=== PATIENT | female | born 1950 | race Caucasian/White ===

== ENCOUNTER 2018-08-30 14:31 | Outpatient (REF) | payer MEDICARE, MEDICAID, SELFPAY ==
[2018-08-30 13:07] LABS: HCT 40.3 % (36.0-46.0); HGB 13.5 g/dL (12.0-15.5); Mean Corp. HGB Concentration 33.5 g/dL (32.0-36.0); Mean Corpuscular Hemoglobin 30.5 pg (27.0-33.0); Mean Platelet Volume 11.6 fL (8.0-11.0); Platelet Count 221 x1000/uL (130-400); RBC 4.43 m/cumm (4.00-5.20); RBC Distribution Width 12.9 % (11.7-14.6); White Blood Cell Count 5.93 k/cumm (4.4-10.8)
[2018-08-30 13:29] LABS: BUN 24 mg/dL (7-18); Calcium 9.5 mg/dL (8.5-10.1); Chloride 106 mmol/L (98-107); Cholesterol 212 mg/dL (50-200); Glucose 90 mg/dL (70-100); HDL Cholesterol 65 mg/dL (40-60); LDL CHOLESTEROL 128 mg/dL (<100); Potassium 4.7 mmol/L (3.5-5.1); Sodium 143 mmol/L (136-145); Triglyceride 87 mg/dL (30-150)
== END 2018-08-30 14:51 ==
LOC: NCHCN 14:31
PROVIDERS: PCP Family Medicine; Visit Provider Family Medicine
DX: I10 Essential (primary) hypertension (principal); E78.5 Hyperlipidemia, unspecified
CPT/HCPCS: 80048; 80061; 83721; 85027

== ENCOUNTER 2019-03-02 01:08 | Outpatient (CLI) | payer MEDICARE, MEDICAID, SELFPAY ==
--- NOTE | 2019-03-02 16:02 | DI.MAMMO_ITS ---
EXAM: MAMMO SCREENING CLINICAL HISTORY: SCREENING Z12.31. TECHNIQUE: Mammograms were interpreted according to the usual protocol including computer analysis w [employer] CAD system, tomosynthesis and C-view imaging. COMPARISON: Comparison is made with prior exams. FINDINGS: Breasts are of moderate density with fairly symmetrical distribution of fibroglandular tissue. No do minant mass or clumped microcalcification identified in either breast. Current examination compared with previous examinations including October 2016 and there has been no gross interval change appearance in comparison the previous studies. IMPRESSION: No specific evidence of malignancy at this time. Routine screening examinations are suggested at year ly intervals due to the family history of breast carcinoma. Category 1. Breast density, category B. BI-RADS Cat 1 - Negative. Breast Density - Category B - Scattered areas of fibroglandular density.
--- NOTE | 2019-03-02 16:20 | DI.DEXA_ITS ---
EXAM: XR DEXA BONE DENSITY W/WO SHELBY INDICATION: ASYMPTOMATIC POST MENOPAUSAL STATUS Z78.0. COMPARISON: No exams were available for comparison TECHNIQUE: 2D digital imaging was performed. FINDINGS: DEXA scan was performed according to the usual protocol. Please see the accompanying data sheets. F indings for left hip scanning are T-score of 0.1 with left femoral neck T-score -1.8. Prior examinat ion of April 2009 showed left hip T-score 1.1. Lumbar spine scanning shows T-score -0.3. Prior examination of April 2009 showed lumbar T-score - 0.4. Left forearm shows T-score -1.1, prior examination 2008 showed left forearm T-score -0.7. IMPRESSION: Findings consistent with osteopenia according to the WHO criteria. Please note that the lateral verte bral scanogram shows no evidence of a vertebral compression fracture.
== END 2019-03-02 01:28 ==
PROVIDERS: PCP Family Medicine; Visit Provider Family Medicine
DX: Z12.31 Encounter for screening mammogram for malignant neoplasm of breast (principal); M85.88 Other specified disorders of bone density and structure, other site; Z78.0 Asymptomatic menopausal state
CPT/HCPCS: 77063; 77067; 77080

== ENCOUNTER 2020-03-29 12:43 | Outpatient (REF) | payer MEDICARE, MEDICAID, SELFPAY ==
[2020-03-29 19:22] LABS: Anion Gap 8.8 mmol/L (3-11); BUN 17 mg/dL (7-18); CO2 27.2 mmol/L (21.0-32.0); CREATININE 1.04 mg/dL (0.55-1.02); Calcium 9.3 mg/dL (8.5-10.1); Calculated LDL 128 mg/dL (<100); Chloride 104 mmol/L (98-107); Cholesterol 223 mg/dL (<200); Estimated GFR 52.09 (mL/min/1.73m2); Glucose 88 mg/dL (74-106); HDL Cholesterol 76 mg/dL (40-60); Potassium 4.5 mmol/L (3.5-5.1); Sodium 140 mmol/L (136-145); Triglyceride 99 mg/dL (<150)
== END 2020-03-29 13:03 ==
LOC: NCHCN 12:43
PROVIDERS: PCP Family Medicine; Visit Provider Family Medicine
DX: E78.5 Hyperlipidemia, unspecified (principal); I10 Essential (primary) hypertension
CPT/HCPCS: 80048; 80061

== ENCOUNTER 2020-08-27 02:36 | Outpatient (CLI) | payer MEDICARE, MEDICAID, SELFPAY ==
--- NOTE | 2020-08-27 09:23 | DI.RAD_ITS ---
EXAM: XR KNEE LT 3V AP,LAT,SCOTT CLINICAL HISTORY: LT KNEE JOINT PAIN,M25.562. TECHNIQUE: 2D digital imaging was performed. COMPARISON: CR LEFT KNEE 3 VIEW COMPLETE from 09/08/2014 CR RIGHT KNEE 3 VIEWS from 09/08/2014 FINDINGS: Again noted are significant degenerative changes in the knee joint, most prominent in the medial comp artment where there is significant narrowing and there is a degenerative subarticular cyst subjacent to the tibial spines again noted. There has also been some progression of degenerative disease in th e lateral compartment. The medial compartment, however, is [id number]. There are significant dege nerative changes also evident in the patellofemoral compartment. No obvious joint effusion. Vascular calcification is noted in the femoral and popliteal arteries. IMPRESSION: Significant osteoarthritic advanced changes in the medial patellofemoral compartment. DATA REPOSITORY: RADIATION DOSE DELIVERED:
== END 2020-08-27 02:56 ==
PROVIDERS: PCP Family Medicine; Visit Provider Family Medicine
DX: M25.562 Pain in left knee (principal); M17.12 Unilateral primary osteoarthritis, left knee
CPT/HCPCS: 73562

== ENCOUNTER 2020-08-27 12:45 | Outpatient (REF) | payer MEDICARE, MEDICAID, SELFPAY ==
--- NOTE | 2020-08-27 11:58 | SKI_PTH ---
PATIENT: Paula Bill LOC: [facility] U#:[id number] AGE/SX: 70/F ROOM: RE08/27/[address]: Blaise Cartwright DO : 1950 BED: DIS: 08/27/2020 SPEC #: [id number] RECD: 08/27/20 18:01 STATUS: KODI RERenae #: [id number] VANESSA: 08/27/20 11:[address]: Blaise Cartwright DEPT: Surgical Specimen RECD BY: Damaris Maurice ENTERED: 08/27/20 18:01 SP TYPE: SKI OTHR DR: Brook Leon Tissues: 1 - SKIN BIOPSY(SHAVE/PUNCH) Procedures: SKIN LEVEL 4 Comments: [id number]
== END 2020-08-27 12:46 | disposition home or self-care (01) ==
LOC: LBN 12:45
PROVIDERS: PCP Family Medicine; Visit Provider Otolaryngology Otolaryngology/Facial Plastic Surgery
DX: B07.8 Other viral warts (principal)
CPT/HCPCS: 88305

== ENCOUNTER → 2020-10-25 09:45 | Outpatient (BNVA) | payer MEDICARE, MEDICAID, SELFPAY | PROVIDERS: PCP Family Medicine; Referring Provider Family Medicine; Visit Provider Student in an Organized Health Care Education/Training Program | DX: M17.12 Unilateral primary osteoarthritis, left knee (principal) | CPT/HCPCS: 20610; 99213; J1040 ==

== ENCOUNTER 2021-01-14 15:37 | Outpatient (CLI) | payer MEDICARE, MEDICAID, SELFPAY ==
--- NOTE | 2021-01-14 14:00 | DI.RAD_ITS ---
Exam(s) XR STANDING ALIGNMENT EXAM: XR STANDING ALIGNMENT CLINICAL HISTORY: preop. TECHNIQUE: 2D digital imaging was performed. COMPARISON: CR XR KNEE LT 3V AP,LAT,SCOTT from 08/27/2020 CR XR KNEE LT 3V AP,LAT,SCOTT from 08/27/2020 FINDINGS: There is been further narrowing of the medial compartment of the left knee which is [id number] at t his time. More moderate narrowing of the medial compartment of the opposite-right knee is noted. La teral compartments of both knees exhibit normal height but exhibit chondrocalcinosis. Both hips appe ar unremarkable as do the ankles. Vascular calcification is noted in both lower extremities. No rad iographic evidence of osteomyelitis. IMPRESSION: DATA REPOSITORY: RADIATION DOSE DELIVERED:
--- NOTE | 2021-01-14 14:00 | DI.RAD_ITS ---
Exam(s) XR KNEE LT 1V EXAM: XR KNEE LT 1V CLINICAL HISTORY: preop. TECHNIQUE: 2D digital imaging was performed. COMPARISON: CR XR KNEE LT 3V AP,LAT,SCOTT from 08/27/2020 FINDINGS: Single lateral view reveals degenerative changes in the knee joint. Also a joint effusion. Vascular calcification femoral artery noted. IMPRESSION: DATA REPOSITORY: RADIATION DOSE DELIVERED:
== END 2021-01-14 15:38 | disposition home or self-care (01) ==
LOC: DIORS 15:38
PROVIDERS: PCP Family Medicine; Referring Provider Family Medicine; Visit Provider Student in an Organized Health Care Education/Training Program
DX: M17.12 Unilateral primary osteoarthritis, left knee (principal); M75.21 Bicipital tendinitis, right shoulder; Z98.890 Other specified postprocedural states
CPT/HCPCS: 99214; 73560; 77073

== ENCOUNTER 2021-02-22 08:16 | Outpatient (REF) | payer MEDICARE, SELFPAY, MEDICAID ==
[2021-02-22 13:39] LABS: Anion Gap 7.7 mmol/L (3-11); BUN 17 mg/dL (7-18); CO2 27.3 mmol/L (21.0-32.0); Calcium 8.8 mg/dL (8.5-10.1); Calculated LDL 130 mg/dL (<100); Chloride 108 mmol/L (98-107); Cholesterol 205 mg/dL (<200); Estimated GFR 54.35 (mL/min/1.73m2); Glucose 89 mg/dL (74-106); HDL Cholesterol 60 mg/dL (40-60); Potassium 4.3 mmol/L (3.5-5.1); Sodium 143 mmol/L (136-145); Triglyceride 75 mg/dL (<150)
== END 2021-02-22 08:17 | disposition home or self-care (01) ==
LOC: NCHCN 08:16
PROVIDERS: PCP Family Medicine; Visit Provider Family Medicine
DX: E78.5 Hyperlipidemia, unspecified (principal); I10 Essential (primary) hypertension
CPT/HCPCS: 80048; 80061

== ENCOUNTER → 2021-03-04 12:53 | Outpatient (BNVA) | payer MEDICARE, MEDICAID, SELFPAY | PROVIDERS: PCP Family Medicine; Referring Provider Family Medicine | DX: Z01.818 Encounter for other preprocedural examination (principal); M17.12 Unilateral primary osteoarthritis, left knee ==

== ENCOUNTER 2021-03-11 01:31 | Outpatient (CLI) | payer MEDICARE, MEDICAID, SELFPAY ==
[2021-03-11 09:55] LABS: HCT 38.5 % (36.0-46.0); HGB 12.5 g/dL (11.2-15.7); MCH 29.8 pg (27.0-33.0); MCHC 32.5 % (32.0-36.0); MCV 91.9 fL (80-95); MPV 10.2 fL (8.0-11.0); Platelet Count 205 10^3/uL (130-400); RBC 4.19 10^6/uL (3.93-5.22); RDW 12.7 % (11.7-14.6); RDW-SD 42.4 fL
== END 2021-03-11 01:32 | disposition home or self-care (01) ==
LOC: LBO 01:31
PROVIDERS: PCP Family Medicine; Visit Provider Student in an Organized Health Care Education/Training Program
DX: M25.562 Pain in left knee (principal); M17.12 Unilateral primary osteoarthritis, left knee; Z01.818 Encounter for other preprocedural examination; Z01.812 Encounter for preprocedural laboratory examination
CPT/HCPCS: 36415; 85027; 87635

== ENCOUNTER 2021-03-11 02:06 | Outpatient (CLI) | payer MEDICARE, MEDICAID, SELFPAY ==
[2021-03-11 12:36] LABS: Source Nasal/Nares
[2021-03-11 18:06] LABS: COVID-19 PCR Negative (Negative)
== END 2021-03-11 02:07 | disposition home or self-care (01) ==
LOC: LBO 02:06
PROVIDERS: PCP Family Medicine; Visit Provider Student in an Organized Health Care Education/Training Program
DX: Z20.822 Contact with and (suspected) exposure to COVID-19 (principal); Z01.818 Encounter for other preprocedural examination
CPT/HCPCS: 87635

== ENCOUNTER 2021-03-12 10:27 | Day surgery (SDC) | payer MEDICARE, MEDICAID, SELFPAY ==
[2021-03-12] VITALS (9 sets, daily range): BP systolic 128–204; BP diastolic 93–119; PULSE 71–78; RESP 16–22; TEMP 36.3–36.6; O2SAT 94–100; BMI 26.4
--- NOTE | 2021-03-12 10:04 | DSE_ITS ---
Documented by User: Linda Hartman 03/12/21 11:08 DS: Diagnosis Discharge Diagnosis (1) Unilateral primary osteoarthritis, left knee: Status: Acute Discharge Plan Disposition Patient Disposition: HOME Condition: Good Discharge Details Reason For Visit: Left knee DJD Attending Provider: Angel Joshua Primary Care Provider: Brook Leon Home Meds and New Rx's Prescriptions: New acetaminophen 500 mg tablet 500 mg PO Q6H PRN (Reason: pain) Qty: 60 RF: 2 aspirin 81 mg tablet,delayed release (DR/EC) 81 mg PO BID 30 Days Qty: 60 RF: 0 celecoxib [Celebrex] 200 mg capsule 200 mg PO BID Qty: 30 RF: 0 docusate sodium [Colace] 100 mg capsule 100 mg PO BID Qty: 30 RF: 0 gabapentin 300 mg capsule 300 mg PO QHS Qty: 14 RF: 0 oxycodone 5 mg tablet 5 mg PO Q4H PRN (Reason: severe post-operative pain) Qty: 18 RF: 0 pantoprazole 40 mg tablet,delayed release (DR/EC) 40 mg PO DAILY 30 Days Qty: 30 RF: 0 Continued betamethasone dipropionate 15 GM ointment 15 g Topical PRN PRNRF: 0 pravastatin 20 MG tablet 20 mg PO DAILY RF: 0 lisinopril 2.5 MG tablet 2.5 mg PO DAILY RF: 0 Discontinued aspirin [Aspir-81] 81 MG tablet,delayed release (DR/EC) 81 mg PO DAILY RF: 0 Discharge Instructions Additional Instructions: Total Knee Discharge Instructions Activity: The most important activity is to walk. You should try to take short walks a few times a day. It is important that when resting you work on keeping the knee straight. Avoid putting a pillow behind the knee as this will encourage flexion. Work on range of motion exercises as provided by Physical Therapy. If you have the [employer] bike coming, this will be your primary tool for exercise after the knee replacement. You should use it and follow the directions for the knee. Utilize the other exercises sparingly based on your symptoms. - Start outpatient physical therapy within 2 weeks. - You should wear the SCARLET hose on both legs for 2 weeks. You may remove these at night. You may also use any compression sock in place of the SCARLET hose. - Utilize [employer] to review exercises, see videos on exercises and obtain basic information pertaining to your surgery and your recovery. Dressing: Remove the Dov wrap by 2 days after your surgery and put on the SCARLET stocking given to you from the hospital. Keep the surgical dressing (underneath the DOV wrap) in place for at least one week. After the first week it may be removed and replaced with light gauze and tape or nothing. The wound and dressing may get wet after 3 days but avoid soaking the dressing or otherwise it will need to be changed. Many people prefer covering the dressing with cling wrap (saran wrap) to minimize it from getting soaked. If it gets wet, just pat dry. If it starts to peel off then it will need to be changed. Medications: - You should take Tylenol and anti-inflammatory Celebrex as your primary pain control medications. If the Celebrex is too expensive or not covered, please call the office for another alternative (Advil/Ibuprofen or Naproxen/Aleve) - You have been prescribed a stronger pain medication Oxycodone for breakthrough pain, take as needed as prescribed. - You have also been prescribed a stomach acid reduction agent Pantoprozole to help reduce stomach acid and reflux. - You have been prescribed Gabapentin to take at night for restlessness and nerve pain. - You will be taking Aspirin 81mg twice a day for DVT prevention unless instructed otherwise. - If you have constipation you should take Colace (which has been prescribed)or Miralax (which you may purchase [id number]). It takes most people 3-4 days to have a bowel movement. Follow-up: 2 weeks If you have any acute concerns or questions, please do not hesitate to contact [facility] office at [phone]. You may contact Dr. Joshua with any questions after hours through the hospital at [phone] or on his cell phone at [phone]. Stand Alone Forms: Anesthesia Discharge Inst., Anes.Nerve Block Instructions Referrals: Angel Joshua MD [ [facility] STAFF PHYSICIAN] - Equipment/Supplies: Walker Activity:: Elevate Remove Dressings/Wound Care:: Do Not Remove Shower/Bathe:: Cover Diet:: As Tolerated Discharge Orders Discharge Orders: Discharge Order (Routine); Ordered 03/12/21 Ordered By: Angel Joshua DS: Data Vitals/I&O Vitals and I&O: Intake & Output 03/11/21 03/11/21 03/12/21 11:59 23:59 11:59 Weight 67.585 kg PFSH Medical History Bilateral carotid bruits Facial twitching Family hx of colon cancer Hair loss Hand eczema Hx of adenomatous colonic polyps Hyperlipidemia Hypertension Menopause Objective pulsatile tinnitus Pain, joint, shoulder, right Varicose veins of left lower extremity Surgical History Colonoscopy - [facility] (08/10/17) Social History Smoking/Tobacco Use Status: Never Smoking risk assessment performed?: Yes Alcohol Intake: current Alcohol Intake frequency: 3 or more drinks per day Drug use: Never Substance use type: does not use Do you feel safe at home: Yes Do you feel safe in your relationship?: Yes Documented by User: Angel Joshua MD 03/12/21 17:54 Date of service: 03/12/21 Time of Service: 17:46 Discharge Plan Disposition Patient Disposition: HOME Condition: Good Discharge Details Reason For Visit: Left knee DJD Attending Provider: Angel Joshua Primary Care Provider: Brook Leon Home Meds and New Rx's Prescriptions: New acetaminophen 500 mg tablet 500 mg PO Q6H PRN (Reason: pain) Qty: 60 RF: 2 aspirin 81 mg tablet,delayed release (DR/EC) 81 mg PO BID 30 Days Qty: 60 RF: 0 celecoxib [Celebrex] 200 mg capsule 200 mg PO BID Qty: 30 RF: 0 docusate sodium [Colace] 100 mg capsule 100 mg PO BID Qty: 30 RF: 0 gabapentin 300 mg capsule 300 mg PO QHS Qty: 14 RF: 0 oxycodone 5 mg tablet 5 mg PO Q4H PRN (Reason: severe post-operative pain) Qty: 18 RF: 0 pantoprazole 40 mg tablet,delayed release (DR/EC) 40 mg PO DAILY 30 Days Qty: 30 RF: 0 Continued betamethasone dipropionate 15 GM ointment 15 g Topical PRN PRNRF: 0 pravastatin 20 MG tablet 20 mg PO DAILY RF: 0 lisinopril 2.5 MG tablet 2.5 mg PO DAILY RF: 0 Discontinued aspirin [Aspir-81] 81 MG tablet,delayed release (DR/EC) 81 mg PO DAILY RF: 0 Discharge Instructions Additional Instructions: Total Knee Discharge Instructions Activity: The most important activity is to walk. You should try to take short walks a few times a day. It is important that when resting you work on keeping the knee straight. Avoid putting a pillow behind the knee as this will encourage flexion. Work on range of motion exercises as provided by Physical Therapy. If you have the [employer] bike coming, this will be your primary tool for exercise after the knee replacement. You should use it and follow the directions for the knee. Utilize the other exercises sparingly based on your symptoms. - Start outpatient physical therapy within 2 weeks. - You should wear the SCARLET hose on both legs for 2 weeks. You may remove these at night. You may also use any compression sock in place of the SCARLET hose. - Utilize [employer] to review exercises, see videos on exercises and obtain basic information pertaining to your surgery and your recovery. Dressing: Remove the Dov wrap by 2 days after your surgery and put on the SCARLET stocking given to you from the hospital. Keep the surgical dressing (underneath the DOV wrap) in place for at least one week. After the first week it may be removed and replaced with light gauze and tape or nothing. The wound and dressing may get wet after 3 days but avoid soaking the dressing or otherwise it will need to be changed. Many people prefer covering the dressing with cling wrap (saran wrap) to minimize it from getting soaked. If it gets wet, just pat dry. If it starts to peel off then it will need to be changed. Medications: - You should take Tylenol and anti-inflammatory Celebrex as your primary pain control medications. If the Celebrex is too expensive or not covered, please call the office for another alternative (Advil/Ibuprofen or Naproxen/Aleve) - You have been prescribed a stronger pain medication Oxycodone for breakthrough pain, take as needed as prescribed. - You have also been prescribed a stomach acid reduction agent Pantoprozole to help reduce stomach acid and reflux. - You have been prescribed Gabapentin to take at night for restlessness and nerve pain. - You will be taking Aspirin 81mg twice a day for DVT prevention unless instructed otherwise. - If you have constipation you should take Colace (which has been prescribed)or Miralax (which you may purchase [id number]). It takes most people 3-4 days to have a bowel movement. Follow-up: 2 weeks If you have any acute concerns or questions, please do not hesitate to contact the office at [phone]. You may contact Dr. Joshua with any questions after hours through the hospital at [phone] or on his cell phone at [phone]. Stand Alone Forms: Anesthesia Discharge Inst., Anes.Nerve Block Instructions Referrals: Angel Joshua MD [ [facility] STAFF PHYSICIAN] - Equipment/Supplies: Walker Activity:: Elevate Remove Dressings/Wound Care:: Do Not Remove Shower/Bathe:: Cover Diet:: As Tolerated Discharge Orders Discharge Orders: Discharge Order (Routine); Ordered 03/12/21 Ordered By: Angel Joshua DS: Summary Time Spent with Patient providing and/or coordinating discharge services: Less than 30 minutes Status at Discharge Functional status at discharge: uses cane/walker Overall status at discharge: patient is progressing back to baseline Mental Status: mental status grossly normal Speech and Movement: speech and movement normal Mood: congruent mood Affect: normal affect Exam Psych Mental Status: mental status grossly normal Speech and Movement: speech and movement normal Mood: congruent mood Affect: normal affect [facility] Medical History Bilateral carotid bruits Facial twitching Family hx of colon cancer Hair loss Hand eczema Hx of adenomatous colonic polyps Hyperlipidemia Hypertension Menopause Objective pulsatile tinnitus Pain, joint, shoulder, right Varicose veins of left lower extremity Surgical History Colonoscopy - [facility] (08/10/17) Social History Smoking/Tobacco Use Status: Never Smoking risk assessment performed?: Yes Alcohol Intake: current Alcohol Intake frequency: 3 or more drinks per day Drug use: Never Substance use type: does not use Do you feel safe at home: Yes Do you feel safe in your relationship?: Yes
[2021-03-12] MEDS: Acetaminophen 500 MG TAB 1000 MG PO (11:00)
[2021-03-12] MEDS: Gabapentin 300 MG CAP PO (11:01)
[2021-03-12] MEDS: Celecoxib 200 MG CAP 400 MG PO (11:01)
[2021-03-12 11:06] LABS: Anion Gap 5.2 mmol/L (3-11); BUN 15 mg/dL (7-18); CO2 29.8 mmol/L (21.0-32.0); Calcium 9.7 mg/dL (8.5-10.1); Chloride 107 mmol/L (98-107); Estimated GFR 54.35 (mL/min/1.73m2); Glucose 99 mg/dL (74-106); Potassium 4.8 mmol/L (3.5-5.1); Sodium 142 mmol/L (136-145)
[2021-03-12] MEDS: Lactated Ringers 1,000 ML 80 ML IV (11:30)
--- NOTE | 2021-03-12 11:30 | ANES.PREOP_ITS ---
General Info Date of Service Date Performed: 03/12/21 Height: 5 ft 3 in Weight: 67.585 kg Body Mass Index (BMI): 26.4 Surgical Procedure: Operation Date: 03/12/21 13:40 Proposed Procedures Side Surgeon p Knee Total Arthroplasty Left Angel Joshua MD Meds Allergies and Home Medications Allergies Allergy/AdvReac Type Severity Reaction Status Date / Time No Known Allergies Allergy Unverified 03/12/21 11:31 Home Medication Medication Instructions Recorded lisinopril 2.5 mg PO DAILY 02/22/14 pravastatin 20 mg PO DAILY 02/22/14 betamethasone dipropionate 15 g TOPICAL PRN PRN script NS 07/20/17 acetaminophen 500 mg PO Q6H PRN #60 tab 03/12/21 aspirin 81 mg PO BID 30 Days #60 tab 03/12/21 celecoxib [Celebrex] 200 mg PO BID #30 cap 03/12/21 docusate sodium [Colace] 100 mg PO BID #30 cap 03/12/21 gabapentin 300 mg PO QHS #14 cap 03/12/21 oxycodone 5 mg PO Q4H PRN #18 tab 03/12/21 pantoprazole 40 mg PO DAILY 30 Days #30 tab 03/12/21 Current Visit Medications: Current Medications Generic Name Dose Route Start Last Admin Trade Name Freq PRN Reason Stop Dose Admin Acetaminophen 1,000 mg 03/12/21 06:00 03/12/21 11:00 Acetaminophen 500 Mg Tab PO 03/12/21 23:59 1,000 mg PREOP TEDDY Administration Acetaminophen 1,000 mg 03/12/21 14:00 Acetaminophen 500 Mg Tab PO TID TEDDY Aspirin 81 mg 03/12/21 20:00 Aspirin E.C. 81 Mg Tabec PO BID TEDDY Celecoxib 400 mg 03/12/21 06:00 03/12/21 11:01 Celecoxib 200 Mg Cap PO 03/12/21 23:59 400 mg PREOP TEDDY Administration Celecoxib 200 mg 03/12/21 20:00 Celecoxib 200 Mg Cap PO BID TEDDY Docusate Sodium 100 mg 03/12/21 10:01 Docusate Sodium 100 Mg Cap PO BID PRN PRN Constipation Gabapentin 300 mg 03/12/21 06:00 03/12/21 11:01 Gabapentin 300 Mg Cap PO 03/12/21 23:59 300 mg PREOP TEDDY Administration Gabapentin 300 mg 03/12/21 22:00 Gabapentin 300 Mg Cap PO HS TEDDY Hydromorphone HCl 0.5 mg 03/12/21 10:01 Hydromorphone 2 Mg/Ml Vial IVP Q2H PRN PRN Tranexamic Acid 1,000 mg/ 60 mls @ 360 mls/hr 03/12/21 06:00 Sodium Chloride IVPB 03/12/21 23:59 PREOP TEDDY Tranexamic Acid 1,000 mg/ 60 mls @ 360 mls/hr 03/12/21 06:00 Sodium Chloride IVPB 03/12/21 23:59 DIRECTED TEDDY Ringer's Solution 1,000 mls @ 80 mls/hr 03/12/21 06:00 IV 04/10/21 23:59 INFUSION TEDDY Cefazolin Sodium/Dextrose 2 gm in 50 mls @ 100 mls/hr 03/12/21 06:00 Ancef Duplex IVPB 03/12/21 16:00 PREOP TEDDY Cefazolin Sodium/Dextrose 1 gm in 50 mls @ 100 mls/hr 03/12/21 14:00 Ancef Duplex IVPB 03/13/21 06:29 Q8H TEDDY IV Miscellaneous Supplies 1 each 03/12/21 06:00 Iv Access IV 04/10/21 23:59 DIRECTED TEDDY Ondansetron HCl 4 mg 03/12/21 10:01 Ondansetron 4 Mg/2 Ml Vial IVP Q6H PRN PRN Nausea Oxycodone HCl 0 mg 03/12/21 10:01 Oxycodone 5 Mg Tab PO Q3H PRN PRN Pain Pantoprazole Sodium 40 mg 03/13/21 08:00 Pantoprazole 40 Mg Tabcr PO DAILY@0730 TEDDY Polyethylene Glycol 17 gm 03/12/21 10:01 Polyethylene Glycol 3350 17 Gm Packet PO BID PRN PRN Constipation Sodium Chloride 0 ml 03/12/21 06:00 Normal Saline Flush 10 Ml Syr IV 04/10/21 23:59 PRN PRN Sodium Chloride 0 ml 03/12/21 06:00 Normal Saline 10 Ml Vial IJ 04/10/21 23:59 DIRECTED PRN Sterile Water 0 ml 03/12/21 06:00 Water,Injection,Sterile 10 Ml Vial IJ 04/10/21 23:59 DIRECTED PRN PFSH Active Problems Active Problems: Problem Status Onset Code Tendinitis of long head of biceps brachii of right shoulder M75.21 Unilateral primary osteoarthritis, left knee 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, soft tissue, and skin D49.2 Medical History Medical History Bilateral carotid bruits Facial twitching Family hx of colon cancer Hair loss Hand eczema Hx of adenomatous colonic polyps Hyperlipidemia Hypertension Menopause Objective pulsatile tinnitus Pain, joint, shoulder, right Varicose veins of left lower extremity Surgical History Surgical History Colonoscopy - [facility] (08/10/17) Tobacco Smoking/Tobacco Use Status: Never Alcohol Alcohol Intake: current Alcohol intake frequency: 3 or more drinks per day Substance Use Substance use: Never Substance use type: does not use Vital Signs and Lab Results Lab Results Result Diagrams: 03/12/21 10:44 Blood Type / Crossmatch: No Data to Display Complete Blood Count: White Blood Count 6.50 10^3/uL (4.4-10.8) 03/11/21 09:40 03/11/21 Red Blood Count 4.19 10^6/uL (3.93-5.22) 03/11/21 09:40 03/11/21 Hemoglobin 12.5 g/dL (11.2-15.7) 03/11/21 09:40 03/11/21 Hematocrit 38.5 % (36.0-46.0) 03/11/21 09:40 03/11/21 Platelet Count 205 10^3/uL (130-400) 03/11/21 09:40 03/11/21 Complete Metabolic Panel: 2 Sodium Level 142 mmol/L (136-145) 03/12/21 10:44 03/12/21 Potassium Level 4.8 mmol/L (3.5-5.1) 03/12/21 10:44 03/12/21 Chloride Level 107 mmol/L (98-107) 03/12/21 10:44 03/12/21 Carbon Dioxide Level 29.8 mmol/L (21.0-32.0) 03/12/21 10:44 03/12/21 Blood Urea Nitrogen 15 mg/dL (7-18) 03/12/21 10:44 03/12/21 Creatinine 1.0 mg/dL (0.55-1.02) 03/12/21 10:44 03/12/21 Estimated GFR/1.73 m2 54.35 (mL/min/1.73m2) 03/12/21 10:44 03/12/21 Calcium Level 9.7 mg/dL (8.5-10.1) 03/12/21 10:44 03/12/21 Glucose Level 99 mg/dL (74-106) 03/12/21 10:44 03/12/21 Liver Function Panel: No Data to Display Coagulation Panel: No Data to Display Cardiac Panel: No Data to Display Arterial Blood Gas: No Data to Display Venous Blood Gas: No Data to Display Pancreas Panel: No Data to Display Thyroid Panel: No Data to Display Infectious Disease: Coronavirus (COVID-19)(PCR) Negative (Negative) 03/11/21 09:55 03/11/21 Coronavirus 2019 Source Nasal/Nares 03/11/21 09:55 03/11/21 Blood Cultures: No Data to Display Toxicology Panel: No Data to Display Imaging and Studies Imaging and Studies Carotid Artery Summary:: 10/2015: CONCLUSION: No evidence of a he modynamically significant carotid stenosis. Anesthesia Assessment and Plan Anesthesia History Personal History: No History of Anesthesia Complications Family History: No Family History of Anesthesia Complications Exercise Tolerance Exercise Tolerance: Metabolic Equivalents>4 Pertinent Negatives Pertinent Negatives: No Symptoms of GERD, No Major Cardiovascular Symptoms or Complaints, No Major Pulmonary Symptoms or Complaints and No History of CVA/TIA Cardiac & Pulmonary Exam Cardiac Exam: Normal S1/S2 Heart Sounds Pulmonary Exam: Clear Bilateral Breath Sounds Airway Exam Known Difficult Airway: No Mallampati Class: 3 Mouth Opening: Normal (> 3cm) Thyromental Distance: Greater than 3 cm Neck Range of Motion: Full ROM Neck Circumference: Normal Teeth Condition: Normal Dentition and Removable Dentures/Plates Upper ASA Classification ASA Score: ASA 2 Emergency Case?: No NPO Status NPO Status: NPO Clears >2 hours, Solids >8 hours Anesthesia Plan Resuscitation Status: Full Code Anesthesia Technique: Spinal Anesthesia Airway Planned: Natural Airway Pain Management: Surgeon and patient request nerve block Monitors Used: Standard Monitors
[2021-03-12] MEDS: ceFAZolin 2 GM/50 ML BAG IVPB (14:42)
[2021-03-12] MEDS: Bupivacaine 0.25% Pres-Free 30 ML VIAL (14:55)
[2021-03-12] MEDS: Ketorolac 30 MG/ML VIAL (14:56)
[2021-03-12] MEDS: Normal Saline 20 ML VIAL (14:57)
--- NOTE | 2021-03-12 16:40 | W.ANESNERVE ---
Nerve Block Single Injection Procedure Date and Time Date Performed: 03/12/21 Procedure Start: 14:15 Location Where Procedure Performed Procedure Location: PACU Reason Performed: Postoperative Analgesia Requesting Provider: Agnel Joshua Timeout Performed Timeout Performed: Yes Monitoring Used ECG, Blood Pressure and SpO2 Sterility Sterility: Hand Hygiene, Surgical Cap, Surgical Mask, Sterile Gloves and Chlorhexidine Sedation Given During Procedure Sedation Given (Indicate Dose Given): Precedex IV Dose:: 8 mcg Patient Mental Status Patient Mental Status: Awake Nerve Block 1st Nerve Block: Laterality: Left Block Type: Adductor Canal Needle / Catheter Used: 100mm SonoPlex II Local Anesthetic Bolus (Indicate Dose Given): Lidocaine used for local infiltration of skin, Injected in 3-5ml increments after negative blood aspiration and Bupivacaine 0.25% Dose:: 15 ml Additives (Indicate Dose Given): None Ultrasound: Sterile probe cover and gel used Ultrasound Image Saved?: Yes Nerve Stimulator: Not Used Paresthesia: None Procedure Tolerated: No Complications and Patient tolerated well Procedure Outcome: Successful Performed By: Rikki Christianson Supervised By: Star Hernandez
[2021-03-12] MEDS: oxyCODONE 5 MG TAB PO (16:43)
--- NOTE | 2021-03-12 17:05 | IN_ITS ---
Date of service: 03/12/21 Time of Service: 17:05 PT Notes Visit Reasons: Left knee DJD Physical Therapy Day Surgery Initial Evaluation Date: 03/12/2021 ROSE MARY Márquez Referring Doctor: PT Orders: PT CONSULT: Status post Ortho surgery Precautions: WBAT on left LE with AD. Patient Profile/Admitting Diagnosis: Marline is a 71-year-old female with degenerative joint disease of the left knee and is status post left total knee today 0. PMHX: Medical History Bilateral carotid bruits Facial twitching Family hx of colon cancer Hair loss Hand eczema Hx of adenomatous colonic polyps Hyperlipidemia Hypertension Menopause Objective pulsatile tinnitus Pain, joint, shoulder, right Varicose veins of left lower extremity Surgical History Colonoscopy - MAC (08/10/17) Social History/Home Situation: Lives with in a private home with 2 steps to enter with a rail on the left going up. There is another flight of steps to the second floor of the house where the bedroom is but patient states that she will be staying on the main floor of house when she goes home. She will have the support of her son and her daughter as she recovers. Equipment Owned/DME: [facility] Subjective: Agreeable to PT consult. Reported mild lightheadedness that seemed to have abated with ambulation activity. Reports 3/10 pain on the left knee at rest and with movement. Objective: General Observation: TOLU wraps on left LE. Cryocuff on left knee. TEDS on the R leg. Mental Status: Alert and oriented x4 Pain: 3/10 pain at rest and with movement ROM: Right Lower Extremity: Hip flexion WFL. Hip abduction WFL. Knee flexion WFL. Ankle dorsiflexion WFL. Ankle plantarflexion WFL. Left Lower Extremity: Hip flexion WFL. Hip abduction WFL. Knee flexion about 5 degrees to 100 degrees. Knee extension about -5 degrees ankle dorsiflexion WFL. Ankle plantarflexion WFL. Strength: Right Lower Extremity: Hip flexors 5/5. Hip abductors 5/5. Knee flexors 5/5. Knee extensors 5/5. Ankle dorsiflexors 5/5. Ankle plantarflexors 5/5. Left Lower Extremity:Hip flexors 5/5. Hip abductors 5/5. Knee flexors 3-/5. Knee extensors 3-/5. Ankle dorsiflexors 5/5. Ankle plantarflexors 5/5. Sensation: Denies numbness and tingling in bilateral lower extremities. Intact as to pain and light touch in bilateral lower extremities. Bed Mobility/Transfers: Supine to sit standby assist Sit to stand contact-guard assist Stand to sit standby assist Bed to chair contact-guard assist Gait: Instructed patient in level surface ambulation of 75 feet using front wheeled walker with step to gait pattern requiring contact-guard assist and wheelchair follow. Reported mild lightheadedness. Systolic blood pressure in the 170s over low 90s after ambulation activity. Denies headache, chest pain, and increased pain in the left knee. Stairs: Up and down 6 x 4 inch steps and 4 x 6 inch step to holding onto bilateral rails with step to gait pattern requiring contact-guard assist of PT. Will have assistance of family members on 1 side when negotiating steps at home. Balance: Static Sitting: Normal Dynamic Sitting: Normal Static Standing: Fair Dynamic Standing: Fair Special Tests: Mobility Limitations Standardized Measure [facility] AM-PAC 6 clicks Basic Mobility Inpatient Short Form: Raw Score: 20 CMS Score: 36% deficit Informed Consent/Education: Patient instructed in purpose of PT consult. Packet containing TKA exercise protocol has been given to patient. Education and training on initial set of exercises that can be done at home have been completed with patient. Assessment: Patient requires the use of a front wheel walker to reduce fall risk and maximize independence at home. Patient presents with clinical signs and symptoms consistent with current/admitting diagnoses that have resulted to mobility limitations, gait instability, generalized weakness, and impairment of motor control as demonstrated by the following impairment level findings: 1. Decreased strength to left knee major muscle groups 2. Impaired standing balance 3. Limitation of joint range of motion in left knee Impairments are contributing to the following functional limitations: 1. Inability to safely ambulate without assistive device 2. Increase completion time for mobility ADL performance 3. Increased fall risk Patient is assessed as a [id number] moderate complexity based on the following: History: 71-year-old female with impairment level findings, functional limitations, and past medical history as indicated above Examination: Demonstrable impairment in strength, balance, and mobility level with underlying impairments and functional limitations as documented above Presentation: Evolving Decision Makin moderate complexity Goals: N/A. PT evaluation and 1-2 treatment sessions only for functional mobility training using recommended AD and for HEP instruction. Plan of Care/Treatment Plan: N/A. PT evaluation and 1-2 treatment session only for functional mobility training using recommended AD and for HEP instruction. DISCHARGE RECOMMENDATIONS: Home when medically cleared by orthopedic surgeon. Outpatient PT services in order to facilitate safe return to community ambulation without assistive device. TREATMENT CODE/TIME: 15153 x 20 minutes, 70818 x 15 minutes beginning at 17:05 PM. Thank you for the opportunity to participate in the care of this patient. Thank you for the opportunity to participate in the care of this patient. Hillary Neri PT, DPT, CLT [facility] [place], [place]
[2021-03-12] MEDS: LISINOPRIL 2.5 MG TAB PO (17:32)
--- NOTE | 2021-03-12 17:51 | W.ANESPOSTOP ---
Postoperative Evaluation Date, Time and Location Date Performed: 03/12/21 Time Performed: 17:51 Patient Location: Day Surgery Unit Vital Signs Most Recent Imported Vital Signs: Most Recent Vital Signs Temp Pulse Resp BP Pulse Ox 36.5 C 71 16 178/95 H 95 03/12/21 17:37 03/12/21 17:37 03/12/21 17:37 03/12/21 17:37 03/12/21 17:37 Pain Score Most Recent Pain Score: Most Recent Pain Score Pain Level 3 03/12/21 17:37 Assessment Mental Status: Awake (Alert & Oriented to Patient Baseline) Airway and Respiratory Function: Patent airway with normal (patient baseline) respiratory exam Cardiovascular Function: Hemodynamically Stable (will monitor blood pressure at home) Hydration Status: Adequately Hydrated Nausea & Vomiting: No Nausea or Vomiting Pain: Pt. Denies Any Pain Peripheral Nerve Block: Regional nerve block not resolved at time of post operative discharge
--- NOTE | 2021-03-12 20:24 | W.PM.OP ---
Date of service: 03/12/21 Time of Service: 16:17 Operative Note Operative Note DATE OF PROCEDURE: 03/12/21 PRE-OP DIAGNOSIS: Left Knee Osteoarthritis POST-OP DIAGNOSIS: same PROCEDURE: Left Total Knee Replacement SURGEON: Angel Joshua PRODUCTION CONTROL PLANNER: Linda Hartman ANESTHESIA TYPE: Spinal Refer to Anesthesia Record ESTIMATED BLOOD LOSS: 150 PATHOLOGY: none sent TOURNIQUET TIME: 33 COMPLICATIONS: None Patient was transported to: PACU Patient's condition: stable Implants: 1. Depuy Attune Cruciate Retaining Femoral Component, Size 5 Narrow 2. Depuy Attune Rotating Platform Tibial Component, Size 4 3. Depuy Attune 5x5 CR,RP Poly 4. Depuy Attune Patellar Component, Size 35 Indications: I have seen Marline in clinic for symptoms of knee arthritis, confirmed with radiographic findings. Marline has exhausted nonoperative methods and was having significant limitations in daily function and desired better function and less pain. I discussed the technical details of a knee replacement. I explained the risks of the procedure to include, but not limited to, bleeding, infection, pain, stiffness, fracture, damage to nerves and vessels, damage to muscles and tendons, loosening, need for repeat procedure, blood clot and cardiopulmonary demise. Despite these risks, Marline elected to proceed. Findings: There was significant signs of arthritis throughout the knee, focused most in the medial compartment. Procedure Description: Marline was greeted in the preoperative holding area where the correct side was identified and marked. The consent was reviewed with the patient and signed. The history and physical was updated. All questions were answered. Preoperative mediacations were administered: Acetaminophen 1000mg, Celebrex 400mg, and Gabapentin 300mg. An adductor canal block was then administered by the anesthesia team in the PACU. Marline was taken back to the operating room. A spinal anesthestic was then administered. The patient was placed into the supine position on the operating room table. A nonsterile tourniquet was placed high onto the leg but only used for cementing. Posts were placed for positioning during the procedure. All bony prominences were well padded. Prophylactic antibiotics in the form of Cefazolin were administered. 1g of Tranxemic Acid was given intravenously within 30 minutes of incision. The left leg was then prepped with Chloraprep and draped in a standard fashion with impervious stockinette and extremity drape. A second prep with Chloraprep was performed prior to placing Ioband. A timeout to confirm correct identity, side and site, procedure, allergies, anesthesia, and medical concerns was performed. With the knee in some flexion, a midline incision was made overlying the knee. Full thickness skin flaps were raised once the extensor mechanism was encountered. These were raised medially and laterally. Any bleeding was controlled with electrocautery. Once the extensor mechanism was fully exposed, a medial parapatellar arthrotomy was performed in a flexed position. All bleeding from the arthrotomy and the geniculate arteries was coagulated. A medial subperiosteal peel was performed with electrocautery to the midcoronal plane. The fat pad was removed while keeping the patellar tendon protected. The anterior distal femur synovium was removed for later visualization. The ACL and PCL were resected and the anterior horn of the lateral meniscus was transected. The knee was then flexed with the patella everted. Using a step drill, and based on preoperative templating, the femoral canal was entered. This was done with a step drill without any difficulty. The intramedullary distal femoral cut guide was inserted, set to a 4 degree valgus cut and 9mm cut thickness. The distal femoral cut guide was then held in position and pinned. With the soft tissues protected, the distal cut was performed. This was passed over a few times to ensure a planar cut. I then turned attention to the tibia. The extramedullary guide was placed onto the leg. The distal aspect was slid medial to adjust for position of center of ankle and stay in line with shaft of the tibia. Approximately 5 degrees of posterior slope was kept in the proximal cutting guide. The center of the guide was aligned with the PCL. The stylus was used to assess cut thickness. The medial side, most involved side, was set for a 4mm cut from the lowest aspect, posteromedial tibia. This was then held in position and pinned into place with 2 additional pins and a cross pin for stability. The medial and lateral collateral ligaments were protected and the cut was performed. With this completed, it was assessed and noted to be of appropriate dimensions. The guide was removed. A spacer block was inserted and the knee was brought into extension. The 5mm spacer block provided full extension, without hyperextension and with stability of both the medial and lateral collateral ligaments was assessed. The pins from the femur and the tibia were then removed. The distal femur was then sized. The anterior stylus was placed onto the lateral ridge of the anterior femur. This indicated a size 5 Narrow femur. The external rotation of the guide was adjusted to 3 degrees to match the epicondylar axis, perpendicular to Melba?s line. The 4-in-1 cutting guide was the placed. The posterior medial femur cut was evaluated and appeared of good thickness. The spacer block was inserted underneath the cutting guide and stability was confirmed in 90 degrees of flexion. An elva wing was used to confirm appropriate position of the anterior cut to avoid notching. This cutting guide was ensured to be flush on the cut surface and then pinned into place with headed pins. While protecting the soft tissues, quad tendon, and collateral ligaments, the anterior and posterior cuts were performed with a saw. The central two pins were removed and the posterior and anterior chamfers were cut next. The notch-cutting guide was placed. This was pinned to lateralize the femoral component as much as possible while keeping it flush on the cut surface. This was then pinned into position. A reciprocating saw was used to make the small notch cut. A trial CR femoral component was then inserted, impacted down to the cut surfaces, and the lug holes were drilled. A provisional trial tibial component was placed and the knee was brought through range of motion. There was noted to be excellent extension and flexion. There was no significant instability. The patella was tracking without thumbs. The tibial cut surface was fully exposed. The medial and lateral menisci were removed. The tibia was then sized as a 4. The tibia had been previously marked during trialing to correspond to the center of the tibial component to help with rotation. The trial was aligned to this gissel, approximately rotated to the medial 1/3rd of the tibial tubercle. The trial was pinned into place. The tibia was prepared with a reamer and a keel punch. The knee was then brought into extension and the patella was measured as 22mm. Using the patellar clamp and cut guide, this was resected to a flat surface with at least 13mm of thickness remaining. The size 35 patella fit the best. This was oriented and then clamped into position. The lugs were drilled. The trial components were removed. The final components, except for the polyethylene were opened on the back table. The periosteal and capsular tissues, especially posteriorly, around the knee were then systematically injected with a periarticular cocktail consisting of 50cc 0.25% Marcaine, 30mg Ketorolac, 20cc of Exparal and 50cc of injectable saline. The tourniquet was then inflated to 275mmHg. The knee was thoroughly irrigated with a pulse lavage and dried. On the back table, with the implants opened, the cement was mixed. 2 batches of antibiotic laden medium viscosity cement were prepared with vacuum assistance. After the cement was ready it was placed on to the back side of the tibial component. A small amount was placed onto the posterior flange of the femur. Cement was manual pressurized and impregnated into the cut surface of the tibia. The tibial component was then inserted into the cut surface and impacted into position. Excess cement was removed and the component was reimpacted. Again, excess cement was removed and our attention was then turned to the femur. The femoral cut surface was once again dried and cement was manually impacted into the cut surface. The femoral component was lined with the lug holes and impacted. Excess cement was removed. It was ensured to be down against the cut surface. The trial polyethylene was then inserted and the leg was brought out into full extension for the duration of the cement curing process, approximately 18min. Cement was lastly manually impacted into the cut surface of the patella and the patellar button was clamped into position and held. During this process attention was turned to the gutters of the knee and for all interfaces for any excess cement. While the cement was hardening, the knee was irrigated with Irrisept chlorhexadine solution. It was allowed to sit in the knee for 3 minutes. After the cement had finally cured, approximately 18min, the clamp was removed from the patella and the knee was taken through range of motion. A size 5mm polyethylene component provided the best range of motion and stability with less than 2mm gapping with medial and lateral stress and full extension without significant hyperextension. The patella was tracking with a no-thumbs technique. The trial poly was removed and once again the knee was checked for any loose, excess, or errant cement. The poly component was then inserted into position after cleaning and drying the tibial tray. The capsule was then reapproximated with a No. 1 Vicryl at multiple locations. The capsule was finally closed with a No. 2 Stratafix, barbed suture. The tourniquet was then released and the arthrotomy appeared watertight without significant bleeding. The second dosing of 1g TXA was started. Deep tissues were then reapproximated with 0 Vicryl and 2-0 Vicryl. The skin was closed with a running 3-0 Monocryl in a subcuticular fashion. This was reinforced with skin glue. A Mepilex silver dressing was applied along with a [id number] TOLU wrap. A CryoCuff was applied. Marline was transferred to the hospital bed without difficulty an suffering no apparent complication. Marline has a good prognosis. Physical therapy will start today and without restrictions, weight-bearing as tolerated. Aspirin 81mg BID will be used for DVT prophylaxis.
== END 2021-03-12 18:11 | disposition home or self-care (01) ==
LOC: SUR 10:28
PROVIDERS: PCP Family Medicine; Visit Provider Student in an Organized Health Care Education/Training Program
PROC: (CPT 27447; principal; 2021-03-12 13:30)
DX: M17.12 Unilateral primary osteoarthritis, left knee (principal); I10 Essential (primary) hypertension
CPT/HCPCS: 27447; C1776; 80048; 97162; 97530; J0690; J1100; J1885; J2001; J2370; J2405; J2704

== ENCOUNTER 2021-03-25 10:34 | Outpatient (CLI) | payer MEDICARE, MEDICAID, SELFPAY ==
--- NOTE | 2021-03-25 09:45 | DI.RAD_ITS ---
Exam(s) XR STANDING ALIGNMENT EXAM: XR STANDING ALIGNMENT CLINICAL HISTORY: 1ST POST OP L TKA. TECHNIQUE: 2D digital imaging was performed. COMPARISON: CR XR STANDING ALIGNMENT from 01/14/2021 FINDINGS: There has been interval placement of a left knee prosthesis. Components appear to be in satisfactory position. No fractures or loosening evident. There is moderate narrowing of the medial compartment of the opposite-right knee and marginal osteophytes. Both hips appear unremarkable. Calcification is noted in the femoral and popliteal arteries. Some n arrowing of the medial aspect of the left ankle joint is noted. Possible fracture of the tip of the lateral malleolus left-side versus artifact. IMPRESSION: DATA REPOSITORY: RADIATION DOSE DELIVERED:
--- NOTE | 2021-03-25 09:45 | DI.RAD_ITS ---
Exam(s) XR KNEE LT 1V EXAM: XR KNEE LT 1V CLINICAL HISTORY: 1ST POST OP L TKA. TECHNIQUE: 2D digital imaging was performed. COMPARISON: CR XR KNEE LT 1V from 01/14/2021 FINDINGS: On this lateral view there is satisfactory position and alignment of the components of the recently p laced prosthesis. No fracture or loosening evident on this single view. IMPRESSION: DATA REPOSITORY: RADIATION DOSE DELIVERED:
== END 2021-03-25 10:35 | disposition home or self-care (01) ==
LOC: DIORS 10:34
PROVIDERS: PCP Family Medicine; Referring Provider Family Medicine; Visit Provider Physician Assistant
DX: Z96.652 Presence of left artificial knee joint (principal); Z47.1 Aftercare following joint replacement surgery
CPT/HCPCS: 73560; 77073

== ENCOUNTER 2021-04-05 02:40 | Outpatient (CLI) | payer MEDICARE, MEDICAID, SELFPAY ==
--- NOTE | 2021-04-05 12:00 | DI.MAMMO_ITS ---
Exam(s) MAMMO SCREENING EXAM: MAMMO SCREENING CLINICAL HISTORY: SCREENING MAMMO FOR BREAST CANCER Z12.31 TECHNIQUE: Mammograms were interpreted according to the usual protocol including computer analysis w [employer] CAD system, tomosynthesis and C-view imaging. COMPARISON: 2011 through 2018 FINDINGS: The breasts are composed of scattered fibroglandular densities, Breast Density category B. No suspicious masses or suspicious microcalcifications are seen. Vascular calcifications. No skin thickening or abnormal axillary lymph nodes are seen. There has been no significant change from prior exams. IMPRESSION: BI-RADS Category 1, Negative mammogram Yearly screening mammography is recommended. Breast Density - Category B, scattered fibroglandular densities. A negative radiographic report should not delay biopsy if a dominant or clinically suspicious mass is present. Up to ten percent of cancers are not identified on mammography. A negative report may reinforce clinical impression. Adenosis and dense breasts may obscure an underlying neoplasm. False positive reports average 6 to 10%. Patient will receive a letter notifying them of these results.
== END 2021-04-05 03:00 ==
PROVIDERS: PCP Family Medicine; Visit Provider Family Medicine
DX: Z12.31 Encounter for screening mammogram for malignant neoplasm of breast (principal)
CPT/HCPCS: 77063; 77067

== ENCOUNTER → 2021-04-22 10:26 | Outpatient (BNVA) | payer MEDICARE, MEDICAID, SELFPAY | PROVIDERS: PCP Family Medicine; Referring Provider Family Medicine; Visit Provider Student in an Organized Health Care Education/Training Program | DX: Z47.1 Aftercare following joint replacement surgery (principal); Z96.652 Presence of left artificial knee joint ==

== ENCOUNTER → 2021-05-13 09:39 | Outpatient (BNVA) | payer MEDICARE, MEDICAID, SELFPAY | PROVIDERS: PCP Family Medicine; Referring Provider Family Medicine; Visit Provider Student in an Organized Health Care Education/Training Program | DX: R69 Illness, unspecified (principal) ==

== ENCOUNTER → 2021-06-18 09:39 | Outpatient (BNVA) | payer MEDICARE, MEDICAID, SELFPAY | PROVIDERS: PCP Family Medicine; Referring Provider Family Medicine; Visit Provider Student in an Organized Health Care Education/Training Program | DX: Z47.1 Aftercare following joint replacement surgery (principal); Z96.652 Presence of left artificial knee joint | CPT/HCPCS: 99213 ==

== ENCOUNTER → 2021-09-13 09:24 | Outpatient (BNVA) | payer MEDICARE, MEDICAID, SELFPAY | PROVIDERS: PCP Family Medicine; Referring Provider Family Medicine; Visit Provider Student in an Organized Health Care Education/Training Program | DX: T84.82XA Fibrosis due to internal orthopedic prosthetic devices, implants and grafts, initial encounter (principal); Z96.652 Presence of left artificial knee joint | CPT/HCPCS: 99213 ==

== ENCOUNTER 2022-02-04 02:00 | Outpatient (CLI) | payer MEDICARE, MEDICAID, SELFPAY ==
[2022-02-04 12:36] LABS: Source Nasal/Nares
[2022-02-04 16:14] LABS: COVID-19 PCR Negative (Negative)
== END 2022-02-04 02:01 | disposition home or self-care (01) ==
LOC: LBO 02:00
PROVIDERS: PCP Family Medicine; Visit Provider Student in an Organized Health Care Education/Training Program
DX: Z20.822 Contact with and (suspected) exposure to COVID-19 (principal); Z01.818 Encounter for other preprocedural examination
CPT/HCPCS: 87635

== ENCOUNTER 2022-02-05 11:30 | Day surgery (SDC) | payer MEDICARE, MEDICAID, SELFPAY ==
[2022-02-05] VITALS (7 sets, daily range): BP systolic 64–168; BP diastolic 40–92; PULSE 73–79; RESP 15–22; TEMP 36.1–36.7; O2SAT 94–99; BMI 23.8
--- NOTE | 2022-02-05 08:22 | PDOC.DSDIS_ITS ---
Discharge Plan Disposition Patient Disposition: HOME Condition: Good Discharge Details Reason For Visit: Arthrofibrosis of left TKA Attending Provider: Angel Joshua Primary Care Provider: Brook Leon Home Meds and New Rx's Prescriptions: New acetaminophen 500 mg tablet 500 mg PO Q6H PRN (Reason: pain) Qty: 60 2RF ibuprofen 600 mg tablet 600 mg PO TID PRN (Reason: pain) Qty: 60 0RF Continued betamethasone dipropionate 15 GM ointment 15 g Topical PRN PRN pravastatin 20 MG tablet 20 mg PO HS lisinopril 2.5 MG tablet 2.5 mg PO HS Discontinued acetaminophen 500 mg tablet 500 mg PO Q6H PRN (Reason: pain) Qty: 60 2RF Discharge Instructions Additional Instructions: Knee Manipulation Discharge Instructions Activity: You should begin moving as soon as possible. You may work on flexion but also equally maintain extension. You may bear weight as tolerated, using crutches only for support/comfort. You should apply ice to help with swelling and elevate when possible (especially in the first few days). Dressings: The knee dressing may come down after 48 hours. You may shower and get the wound wet at that time. You should keep the wounds covered with a bandaid until follow-up. Medications: - Rarely does this require any stronger pain medications. - Recommend to take up to 1000mg of Acetaminophen (Tylenol) and 600mg of Ibuprofen (Advil) every 8 hours as needed. These larger strength tablets were called in but you also may use [id number]. Follow-up: 7-10 days Referrals: Angel Joshua MD [ [facility] STAFF PHYSICIAN] - Equipment/Supplies: Partial Weight Bearing Crutches Remove Dressings/Wound Care:: 48 hours Shower/Bathe:: 48 hours Diet:: As Tolerated Discharge Orders Discharge Orders: Discharge Order (Routine); Ordered 02/05/22 Ordered By: Linda Hartman
--- NOTE | 2022-02-05 12:08 | W.PREOPHP ---
Assessment and Plan Assessment and plan (1) Arthrofibrosis of total knee replacement: Status: Acute Assessment and plan: Left knee arthroscopy with synovectomy and HAFSA. Details of surgery were discussed with patient as well as risks and pertinent anatomy. All questions were answered. History of Present Illness History of Present Illness Chief Complaint: Left knee stiffness Narrative: Marline is a 72-year-old female who comes in today for a left knee arthroscopy with synovectomy about 11 months status post a left TKA. She has not been happy with her progress in her range of motion of her left total knee replacement and has not noticed any improvement over the last many months. After a discussion with Dr. Joshua about options, she elects to move forward with a left knee arthroscopy with manipulation under anesthesia and is anxious to proceed. Review of Systems Constitutional Constitutional: Denies fever(s) ENT Ears, Nose, Mouth, and Throat: Denies dizziness and Denies sore throat Cardiovascular Cardiovascular: Denies chest pain, Denies palpitations and Denies dyspnea Respiratory Respiratory: Denies cough and Denies dyspnea Gastrointestinal Gastrointestinal: Denies abdominal pain, Denies melena, Denies hematochezia, Denies diarrhea, Denies nausea and Denies vomiting Genitourinary Genitourinary: Denies hematuria and Denies dysuria Neurologic Neurologic: Denies dizziness Endocrine Endocrine: Denies palpitations PFSH All Active Problems (Updated 02/05/22 @ 12:13 by ROSE MARY Vega) Neoplasm of unspecified behavior of bone, soft tissue, and skin (Acute) Tendinitis of long head of biceps brachii of right shoulder (Acute) History of total left knee replacement (Acute 03/12/21) DOS 03/12/21 Arthrofibrosis of total knee replacement (Acute) LEFT S/P arthroscopy and HAFSA: 02/05/2022 Medical History Bilateral carotid bruits Facial twitching Family hx of colon cancer Hair loss Hand eczema Hx of adenomatous colonic polyps Hyperlipidemia Hypertension Menopause Objective pulsatile tinnitus Pain, joint, shoulder, right Varicose veins of left lower extremity Surgical History (Updated 02/05/22 @ 12:13 by ROSE MARY Vega) Colonoscopy - MAC (08/10/17) Hx of cataract extraction Social History Smoking/Tobacco Use Status: Never Smoking risk assessment performed?: Yes Alcohol Intake: current Alcohol Intake frequency: 3 or more drinks per day Alcohol type: hard liquor Drug use: Never Substance use type: does not use Do you feel safe at home: Yes Do you feel safe in your relationship?: Yes Meds Allergies and Home Medications Allergies Allergy/AdvReac Type Severity Reaction Status Date / Time No Known Allergies Allergy Verified 02/05/22 11:58 Home Medications Medication Instructions Recorded Confirmed Type lisinopril 2.5 mg tablet 2.5 mg PO HS 02/22/14 02/05/22 History pravastatin 20 mg tablet 20 mg PO HS 02/22/14 02/05/22 History betamethasone dipropionate 0.05 % 15 g topical PRN PRN 07/20/17 02/05/22 History topical ointment acetaminophen 500 mg tablet 500 mg PO Q6H PRN pain #60 tabs 02/05/22 Rx ibuprofen 600 mg tablet 600 mg PO TID PRN pain #60 tabs 02/05/22 Rx Exam Const General: cooperative and no acute distress Orientation: alert and awake [facility] Head: normocephalic and atraumatic Eyes Conjunctivae: conjunctivae normal Sclera: sclerae normal Resp Effort & Inspection: normal respiratory effort Auscultation: clear to auscultation bilaterally and no wheezes Cardio Rate: regular rate Rhythm: regular rhythm Heart Sounds: S1 normal, S2 normal and no murmurs Results Last Vital Signs Temp 97.2 F L 02/05/22 11:34 Pulse 78 02/05/22 11:34 Resp 18 02/05/22 11:34 BP 168/92 H 02/05/22 11:34 Pulse Ox 99 02/05/22 11:34
[2022-02-05] MEDS: Lactated Ringers 1,000 ML 80 ML IV (12:16)
--- NOTE | 2022-02-05 12:21 | ANES.PREOP_ITS ---
General Info Date of Service Date Performed: 02/05/22 Height: 5 ft 3 in Weight: 61 kg Body Mass Index (BMI): 23.8 Surgical Procedure: Operation Date: 02/05/22 11:55 Proposed Procedure Side Surgeon p Knee Arthroscopy Synovectomy w/Manipulation Left Angel Joshua MD Meds Allergies and Home Medications Allergies Allergy/AdvReac Type Severity Reaction Status Date / Time No Known Allergies Allergy Verified 02/05/22 11:58 Home Medication Medication Instructions Recorded lisinopril 2.5 mg tablet 2.5 mg PO HS 02/22/14 pravastatin 20 mg tablet 20 mg PO HS 02/22/14 betamethasone dipropionate 0.05 % 15 g topical PRN PRN 07/20/17 topical ointment acetaminophen 500 mg tablet 500 mg PO Q6H PRN pain #60 tabs 02/05/22 ibuprofen 600 mg tablet 600 mg PO TID PRN pain #60 tabs 02/05/22 Current Visit Medications: Current Medications Generic Name Dose Route Start Last Admin Trade Name Juan Mq PRN Reason Stop Dose Admin Acetaminophen 650 mg 02/05/22 08:19 Acetaminophen 325 Mg Tab PO Q4H PRN PRN Hydrocodone Bitart/Acetaminophen 0 tab 02/05/22 08:19 Hydrocodone 5/Acetaminophen 325 Tab PO Q3H PRN PRN Pain Ringer's Solution 1,000 mls @ 80 mls/hr 02/05/22 06:00 02/05/22 12:16 IV 03/06/22 23:59 80 mls/hr INFUSION TEDDY Administration Cefazolin Sodium/Dextrose 2 gm in 50 mls @ 100 mls/hr 02/05/22 06:00 Ancef Duplex IVPB 03/06/22 23:59 PREOP TEDDY IV Miscellaneous Supplies 1 each 02/05/22 06:00 Iv Access IV 03/06/22 23:59 DIRECTED TEDDY Sodium Chloride 0 ml 02/05/22 06:00 Normal Saline Flush 10 Ml Syr IV 03/06/22 23:59 PRN PRN Sodium Chloride 0 ml 02/05/22 06:00 Normal Saline 10 Ml Vial IJ 03/06/22 23:59 DIRECTED PRN Sterile Water 0 ml 02/05/22 06:00 Water,Injection,Sterile 10 Ml Vial IJ 03/06/22 23:59 DIRECTED PRN PFSH Active Problems Active Problems: Problem Status Onset Code Neoplasm of unspecified behavior of bone, soft tissue, and skin D49.2 Tendinitis of long head of biceps brachii of right shoulder M75.21 History of total left knee replacement 03/12/21 Z96.652 Arthrofibrosis of total knee replacement T84.82XA Medical History Medical History Bilateral carotid bruits Facial twitching Family hx of colon cancer Hair loss Hand eczema Hx of adenomatous colonic polyps Hyperlipidemia Hypertension Menopause Objective pulsatile tinnitus Pain, joint, shoulder, right Varicose veins of left lower extremity Surgical History Surgical History (Updated 02/05/22 @ 12:13 by ROSE MARY Vega) Colonoscopy - MAC (08/10/17) Hx of cataract extraction Tobacco Smoking/Tobacco Use Status: Never Alcohol Alcohol Intake: current Alcohol intake frequency: 3 or more drinks per day Alcohol type: hard liquor Substance Use Substance use: Never Substance use type: does not use Vital Signs and Lab Results Vital Signs Most Recent Vital Signs in EMR: Most Recent Vital Signs Temp Pulse Resp BP Pulse Ox 36.2 C L 78 18 168/92 H 99 02/05/22 11:34 02/05/22 11:34 02/05/22 11:34 02/05/22 11:34 02/05/22 11:34 Lab Results Blood Type / Crossmatch: No Data to Display Complete Blood Count: No Data to Display Complete Metabolic Panel: No Data to Display Liver Function Panel: No Data to Display Coagulation Panel: No Data to Display Cardiac Panel: No Data to Display Arterial Blood Gas: No Data to Display Venous Blood Gas: No Data to Display Pancreas Panel: No Data to Display Thyroid Panel: No Data to Display Infectious Disease: Coronavirus (COVID-19)(PCR) Negative (Negative) 02/04/22 08:51 Coronavirus 2019 Source Nasal/Nares 02/04/22 08:51 Blood Cultures: No Data to Display Toxicology Panel: No Data to Display Imaging and Studies Imaging and Studies Study information below may be from another EMR and interpreted by another provider. Please see original notes in EMR for more complete details. Carotid Artery Summary:: 10/2015: CONCLUSION: No evidence of a hemod ynamically significant carotid stenosis. Anesthesia Assessment and Plan Anesthesia History Personal History: No History of Anesthesia Complications Family History: No Family History of Anesthesia Complications Exercise Tolerance Exercise Tolerance: Metabolic Equivalents>4 Pertinent Negatives Pertinent Negatives: No Symptoms of GERD, No Major Cardiovascular Symptoms or Complaints, No Major Pulmonary Symptoms or Complaints and No History of CVA/TIA Cardiac & Pulmonary Exam Cardiac Exam: Normal S1/S2 Heart Sounds Pulmonary Exam: Clear Bilateral Breath Sounds Implantable Cardiac Device Does patient have a Pacemaker or an ICD?: No Airway Exam Known Difficult Airway: No Mallampati Class: 3 Mouth Opening: Normal (> 3cm) Thyromental Distance: Greater than 3 cm Neck Range of Motion: Full ROM Neck Circumference: Normal Teeth Condition: Normal Dentition and Removable Dentures/Plates Upper ASA Classification ASA Score: ASA 2 Emergency Case?: No NPO Status NPO Status: NPO Clears >2 hours, Solids >8 hours Anesthesia Plan Resuscitation Status: Full Code Anesthesia Technique: Spinal Anesthesia Airway Planned: Natural Airway Monitors Used: Standard Monitors
[2022-02-05] MEDS: ceFAZolin 2 GM/50 ML BAG IVPB (13:28)
[2022-02-05] MEDS: Bupivacaine 0.5% Pres-Free 30 ML VIAL (14:12)
--- NOTE | 2022-02-05 15:08 | W.ANESPOSTOP ---
Postoperative Evaluation Date, Time and Location Date Performed: 02/05/22 Time Performed: 15:08 Patient Location: Day Surgery Unit Vital Signs Most Recent Imported Vital Signs: Most Recent Vital Signs Temp Pulse Resp BP Pulse Ox 36.6 C 76 22 111/54 L 94 02/05/22 14:41 02/05/22 14:41 02/05/22 14:41 02/05/22 14:41 02/05/22 14:41 Pain Score Most Recent Pain Score: Most Recent Pain Score Pain Level 0 02/05/22 14:41 Assessment Mental Status: Awake (Alert & Oriented to Patient Baseline) Airway and Respiratory Function: Patent airway with normal (patient baseline) respiratory exam Cardiovascular Function: Hemodynamically Stable Hydration Status: Adequately Hydrated Nausea & Vomiting: No Nausea or Vomiting Pain: Pt. Denies Any Pain Peripheral Nerve Block: Patient did not receive a nerve block Postoperative Comments:: Spinal wearing off appropriately.
--- NOTE | 2022-02-06 06:24 | ROE_ITS ---
Date of service: 02/05/22 Time of Service: 14:15 Operative Note Operative Note DATE/TIME OF PROCEDURE: Procedure Start: 02/05/22 13:45 Procedure End: 02/05/22 14:14 PRE-OP DIAGNOSIS: Left Knee Arthrofibrosis s/p Replacement POST-OP DIAGNOSIS: same PROCEDURE: Left Knee Arthroscopic 3 compartment synovectomy SURGEON: Angel Joshua Refer to Anesthesia Record ESTIMATED BLOOD LOSS: 0 PATHOLOGY: none sent TOURNIQUET TIME: 0 COMPLICATIONS: None Patient was transported to: PACU Patient's condition: stable Implants/Explants: Implants/Explants Operation Date: 02/05/22 11:55 <No data on this case meets the specified criteria> Indications: Marline is a 72 year old female who is s/p knee replacement. Despite diligent work with physical therapy there has been continued stiffness. To assist with mobility, I offered a manipulation under anesthesia. I discussed the risks of the procedure to include bleeding, pain, recurrent stiffness, fracture. Despite these risks, she elects to proceed. Findings: Preoperative flexion = 95 Postoperative flexion = 125 Preoperative extension = 5 Postoperative extension = 5 Procedure Description: Marline was greeted in the preoperative holding area where the correct side was identified and marked. The consent was reviewed with the patient and signed. The history and physical was updated. All questions were answered. She was taken back to the operating room. The patient was placed into the supine position on the operating room table. All bony prominences were well padded. Prophylactic antibiotics in the form of Cefazolin were administered. Preoperative range of motion was assessed as 5 - 95. The left leg was then prepped with Chloraprep and draped in a standard fashion with stockinette and extremity drape. A timeout to confirm correct identity, side and site, procedure, allergies, anesthesia, and medical concerns was performed. The leg was placed into a pneumatic leg macdonald, SPIDER2. A standard lateral portal was made at the lateral border of the patella tendon in line with the inferior pole of the patella, soft spot. The skin and deep tissue was incised sharply and the blunt trochar was inserted atraumatically. At this point had visualization of the femoral component. A superolateral portal was then established with spinal needle localization just superior and lateral to the patella. A knife was taken down through the skin and soft tissue to enter the knee joint. Starting in the superior compartment above the femoral component and anterior to the femur I released all scarring between the anterior femoral synovium and the overlying extensor mechanism. This was taken through all of any noticeable scar tissue until the superior patellar pouch was fully released and mobile. This resection was carried out mostly with electrocautery as well as shaver. Once this was released fully from lateral to medial superiorly I then continue working down the lateral gutter. All scar tissue in the lateral gutter was released so there is normal space and movement between the capsular tissues and the edge of the femoral component and femur. This was taken down through the lateral gutter such that I was able to identify the polyethylene to its posterior corner. Once again, all scar tissue in this area was resected so the polyethylene was easily visible and there is no interposed tissue in the back or the polyethylene was identified. I think continue to work anteriorly. To continue the synovectomy from the lateral compartment to the anterior co mpartment into the medial compartment, I placed a medial portal under spinal needle localization. Once this was in place it became another working portal and I continued the synovectomy through the anterior compartment to the medial compartment. Once again, I freed up the medial gutter so I was able to visualize the polyethylene from the anterior posterior margins. There is no interposed tissue after full synovectomy was performed. Adhesions between the capsule and the femur were released. This was continued up the medial gutter until it met up with the releases performed previously in the superior compartment. Any remnant scar tissue from around the patella was then removed with a shaver and electrocautery. The arthroscope was brought back into the suprapatellar pouch and the leg was in full extension. The knee was thoroughly irrigated with the arthroscopic fluid on high flow and pressure. Inflow was stopped and excess fluid was removed. The leg was removed from the spider leg macdonald and manipulation was performed. I first push the knee into flexion and was able to obtain 125 degrees. I then worked the knee into extension, slowly applying an anterior to posterior dir ected pressure with support of the knee and no significant lever arm. The wounds were closed with 4-0 Nylon. 0.25% ropivacaine was injected around the portal sites and into the knee. The wounds were dressed with Xeroform, 4x4 gauze, ABD pad, Kerlix and an TOLU wrap. A cryo-cuff was applied. The patient tolerated the procedure well and was returned to the Same Day Surgery area in a stable condition suffering no known complication..
== END 2022-02-05 16:23 | disposition home or self-care (01) ==
PROVIDERS: PCP Family Medicine; Visit Provider Student in an Organized Health Care Education/Training Program
PROC: (CPT 29870; principal; 2022-02-05 11:45)
DX: T84.82XA Fibrosis due to internal orthopedic prosthetic devices, implants and grafts, initial encounter (principal); Z96.652 Presence of left artificial knee joint; I10 Essential (primary) hypertension; E78.5 Hyperlipidemia, unspecified
CPT/HCPCS: 29876; 27570; 97140; J0690; J1100; J2250; J2370; J2405; J2704

== ENCOUNTER → 2022-02-17 10:40 | Outpatient (BNVA) | payer MEDICARE, SELFPAY | PROVIDERS: PCP Family Medicine; Referring Provider Family Medicine; Visit Provider Physician Assistant Surgical | DX: T84.82XA Fibrosis due to internal orthopedic prosthetic devices, implants and grafts, initial encounter (principal); Z96.652 Presence of left artificial knee joint ==

== ENCOUNTER 2022-03-03 20:32 | Outpatient (REF) | payer MEDICARE, MEDICAID, SELFPAY ==
[2022-03-03 20:21] LABS: Anion Gap 8.3 mmol/L (3-11); BUN 19 mg/dL (7-18); CO2 28.7 mmol/L (21.0-32.0); Chloride 105 mmol/L (98-107); Estimated GFR 59.12 (mL/min/1.73m2); Glucose 94 mg/dL (74-106); Potassium 4.6 mmol/L (3.5-5.1); Sodium 142 mmol/L (136-145)
== END 2022-03-03 20:33 | disposition home or self-care (01) ==
LOC: NCHCN 20:32
PROVIDERS: PCP Family Medicine; Visit Provider Family Medicine
DX: I10 Essential (primary) hypertension (principal)
CPT/HCPCS: 80048

== ENCOUNTER 2022-03-13 13:41 | Outpatient (CLI) | payer MEDICARE, MEDICAID, SELFPAY ==
--- NOTE | 2022-03-13 10:00 | DI.RAD_ITS ---
Exam(s) XR KNEE LT 2V AP,LAT EXAM: XR KNEE LT 2V AP,LAT CLINICAL HISTORY: s/p left TKA. TECHNIQUE: 2D digital imaging was performed of the left knee. Two images were obtained. AP and lat eral views were obtained. COMPARISON: CR XR KNEE LT 3V AP,LAT,SCOTT from 08/27/2020 CR XR STANDING ALIGNMENT from 03/25/2021 CR XR KNEE LT 1V from 03/25/2021 FINDINGS: BONES: No acute fracture is present. No bony destructive lesion is seen. JOINTS: There are stable postsurgical changes of a left total knee arthroplasty. No evidence of hard leal failure is seen. There is a small joint effusion. SOFT TISSUE: Atherosclerosis is present. IMPRESSION: Stable left TKA. DATA REPOSITORY: RADIATION DOSE DELIVERED:
== END 2022-03-13 13:42 | disposition home or self-care (01) ==
LOC: DIORS 13:42
PROVIDERS: PCP Family Medicine; Referring Provider Family Medicine; Visit Provider Physician Assistant
DX: T84.82XA Fibrosis due to internal orthopedic prosthetic devices, implants and grafts, initial encounter (principal); Z96.652 Presence of left artificial knee joint
CPT/HCPCS: 73560

== ENCOUNTER → 2022-08-07 10:57 | Outpatient (BNVA) | payer MEDICARE, MEDICAID, SELFPAY | PROVIDERS: PCP Family Medicine; Referring Provider Family Medicine; Visit Provider Physical Therapy Assistant | DX: Z12.11 Encounter for screening for malignant neoplasm of colon (principal); Z86.010 Personal history of colon polyps; Z80.0 Family history of malignant neoplasm of digestive organs ==

== ENCOUNTER 2022-08-25 06:51 | Day surgery (SDC) | payer MEDICARE, MEDICAID, SELFPAY ==
[2022-08-25 07:27] VITALS: BP 165/111; PULSE 80; RESP 20; TEMP 36.7; O2SAT 97
--- NOTE | 2022-08-25 07:28 | W.ANESPRE ---
General Info Date of Service Date Performed: 08/25/22 Height: 5 ft 3 in Weight: 70.307 kg Body Mass Index (BMI): 27.4 Surgical Procedure: Operation Date: 08/25/22 08:20 Proposed Procedure Side Surgeon carolee Mccabe MD Meds Allergies and Home Medications Allergies Allergy/AdvReac Type Severity Reaction Status Date / Time No Known Allergies Allergy Verified 08/25/22 07:22 Home Medication Medication Instructions Recorded lisinopril 2.5 mg tablet 2.5 mg PO HS 02/22/14 pravastatin 20 mg tablet 20 mg PO DAILY 02/22/14 betamethasone dipropionate 0.05 % 15 g topical PRN PRN 07/20/17 topical ointment acetaminophen 500 mg tablet 500 mg PO Q6H PRN pain #60 tabs 02/05/22 ibuprofen 600 mg tablet 600 mg PO TID PRN pain #60 tabs 02/05/22 omega 7-zbu-ajb-fish oil 100 1 cap PO DAILY 03/13/22 mg-160 mg-1,000 mg capsule (Fish Oil) potassium 99 mg PO DAILY 03/13/22 aspirin 81 mg tablet,delayed 81 mg PO DAILY 04/01/22 release (Adult Aspirin Regimen) triamcinolone acetonide 0.5 % 1 applic topical BID 04/01/22 topical cream bisacodyl 5 mg tablet,delayed 5 mg PO ONCE #4 tabs 08/07/22 release (Dulcolax (bisacodyl)) polyethylene glycol 3350 17 17 g PO ONCE #238 grams 08/07/22 gram/dose oral powder Current Visit Medications: Current Medications Generic Name Dose Route Start Last Admin Trade Name Eveline PRN Reason Stop Dose Admin Ringer's Solution 1,000 mls @ 80 mls/hr 08/25/22 06:00 IV 09/21/22 23:59 INFUSION TEDDY IV Miscellaneous Supplies 1 each 08/25/22 06:00 Iv Access IV 09/21/22 23:59 DIRECTED TEDDY Sodium Chloride 0 ml 08/25/22 06:00 Normal Saline Flush 10 Ml Syr IV 09/21/22 23:59 PRN PRN Sodium Chloride 0 ml 08/25/22 06:00 Normal Saline 10 Ml Vial IJ 09/21/22 23:59 DIRECTED PRN Sterile Water 0 ml 08/25/22 06:00 Water,Injection,Sterile 10 Ml Vial IJ 09/21/22 23:59 DIRECTED PRN PFSH Active Problems Active Problems: Problem Status Onset Code Chronic kidney disease N18.9 Screening for colon cancer Z12.11 Neoplasm of unspecified behavior of bone, soft tissue, and skin D49.2 Tendinitis of long head of biceps brachii of right shoulder M75.21 History of total left knee replacement 03/12/21 Z96.652 Arthrofibrosis of total knee replacement T84.82XA Medical History Medical History Actinic keratoses Arm pain, right Bilateral carotid bruits Facial twitching Family hx of colon cancer Hair loss Hand eczema Hx of adenomatous colonic polyps Hyperlipidemia Hypertension Knee pain, left Menopause Objective pulsatile tinnitus Osteoarthritis Pain, joint, shoulder, right Varicose veins of left lower extremity Surgical History Surgical History Colonoscopy - MAC (08/10/17) Hx of cataract extraction Tobacco Smoking/Tobacco Use Status: Never Alcohol Alcohol Intake: current Alcohol intake frequency: 3 or more drinks per day Alcohol type: hard liquor Substance Use Substance use: Never Substance use type: does not use Vital Signs and Lab Results Manually Entered Vital Signs Most Recent Manually Entered Vital Signs: Adult Blood Pressure: 154/89 Heart Rate: 83 Respirations: 16 Oxygen Saturation (%): 95 Temperature (C): 36.7 C Pain Score (0-10 Scale): 0 Lab Results Blood Type / Crossmatch: No Data to Display Complete Blood Count: No Data to Display Complete Metabolic Panel: No Data to Display Liver Function Panel: No Data to Display Coagulation Panel: No Data to Display Cardiac Panel: No Data to Display Arterial Blood Gas: No Data to Display Venous Blood Gas: No Data to Display Pancreas Panel: No Data to Display Thyroid Panel: No Data to Display Infectious Disease: No Data to Display Blood Cultures: No Data to Display Toxicology Panel: No Data to Display Imaging and Studies Imaging and Studies Study information below may be from another EMR and interpreted by another provider. Please see original notes in EMR for more complete details. Carotid Artery Summary:: 10/2015: CONCLUSION: No evidence of a hemodynamically significant carotid stenosis. Anesthesia Assessment and Plan Anesthesia History Personal History: No History of Anesthesia Complications Family History: No Family History of Anesthesia Complications Exercise Tolerance Exercise Tolerance: Metabolic Equivalents>4 Pertinent Negatives Pertinent Negatives: No Symptoms of GERD Cardiac & Pulmonary Exam Cardiac Exam: Normal S1/S2 Heart Sounds Pulmonary Exam: Clear Bilateral Breath Sounds Implantable Cardiac Device Does patient have a Pacemaker or an ICD?: No Airway Exam Known Difficult Airway: No Mallampati Class: 3 Mouth Opening: Normal (> 3cm) Thyromental Distance: Greater than 3 cm Neck Range of Motion: Full ROM Neck Circumference: Normal Teeth Condition: Normal Dentition and Removable Dentures/Plates Upper ASA Classification ASA Score: ASA 2 Emergency Case?: No NPO Status NPO Status: NPO Clears >2 hours, Solids >8 hours Anesthesia Plan Resuscitation Status: Full Code Anesthesia Technique: General Anesthesia Airway Planned: Natural Airway Monitors Used: Standard Monitors
[2022-08-25 07:31] VITALS: BP 154/89; PULSE 83; RESP 16; O2SAT 95
[2022-08-25] MEDS: Lactated Ringers 1,000 ML 80 ML IV (07:45)
[2022-08-25 07:58] VITALS: BP 154/89; PULSE 83; RESP 16; TEMPC 36.7; O2SAT 95
--- NOTE | 2022-08-25 08:14 | W.COLOREPORT ---
Date of service: 08/25/22 Time of Service: 08:15 Colonoscopy Report Procedure Description: Procedures performed: 1. Colonoscopy with cold forceps polypectomy x1 Preoperative diagnosis: Surveillance colonoscopy Postoperative diagnosis: Colon polyp, sigmoid diverticulosis, grade 2 internal hemorrhoids Surgeon: Anna Marie Mccabe Anesthesia: Tyler Indication for procedure: Patient is a 72-year-old woman with history of hyperplastic polyps but family history of a mother who had colon cancer. She is not having any symptoms and is simply due for surveillance. She has never had intra-abdominal surgery. Findings: A small descending colon polyp was removed cold forceps technique, it was about 2-3 mm in size but did appear adenomatous. Moderate sigmoid diverticulosis is present in the sigmoid colon and is causing some degree of fibrosis. No active diverticulitis. Grade 2 hemorrhoids seen on retroflexion. Surveillance/follow-up recommendations: Because of the family history I recommend repeating in 5 years Complications: None Blood loss: Minimal Specimens:?? YES Quality of Prep:?? Good Procedure in detail: Written consent was obtained from the patient who was in agreement with the risks, benefits and indications of the procedure.? We went to the endoscopy suite and laid the patient in left lateral decubitus position.? Anesthesia was administered which was tolerated well.? A timeout was performed and when we are all in agreement we began the procedure. Digital rectal exam and visual examination was performed and within normal limits.? A well?lubricated colonoscope was advanced without difficulty all the way to the cecum identified by the ileocecal valve, and triangular folds and appendiceal orifice.? It was then slowly withdrawn.?? Retroflexion was performed in the rectum.? The findings/interventions are noted above. The scope was then removed and the patient tolerated the procedure well and was then taken back to the PACU in hemodynamically stable condition.
[2022-08-25 08:18] VITALS: BMI 27.4
--- NOTE | 2022-08-25 08:33 | BOWEL_PTH ---
PATIENT: Paula Bill LOC: [facility] U#:[id number] AGE/SX: 72/F ROOM: RE08/25/[address]: Jeff Mccabe : 1950 BED: DIS: 08/25/2022 SPEC #: [id number] RECD: 08/25/22 12:25 STATUS: KODI REQ #: [id number] VANESSA: 08/25/22 08:[address]: Jeff Mccabe DEPT: Surgical Specimen RECD BY: Damaris Maurice ENTERED: 08/25/22 12:26 SP TYPE: Bowel OTHR DR: Brook Leon Tissues: 1 - BIOPSY BOWEL Procedures: GROSS AND MICRO LEVEL 4 Comments: [id number]
[2022-08-25 08:52] VITALS: BP 121/76; PULSE 80; RESP 18; TEMP 36.6; O2SAT 96
--- NOTE | 2022-08-25 09:13 | W.ANESPOSTOP ---
Postoperative Evaluation Date, Time and Location Date Performed: 08/25/22 Time Performed: 08:55 Patient Location: Day Surgery Unit Vital Signs Most Recent Imported Vital Signs: Most Recent Vital Signs Temp Pulse Resp BP Pulse Ox 36.6 C 80 18 121/76 96 08/25/22 08:52 08/25/22 08:52 08/25/22 08:52 08/25/22 08:52 08/25/22 08:52 Pain Score Most Recent Pain Score: Most Recent Pain Score Pain Level 0 08/25/22 08:52 Assessment Mental Status: Awake (Alert & Oriented to Patient Baseline) Airway and Respiratory Function: Patent airway with normal (patient baseline) respiratory exam Cardiovascular Function: Hemodynamically Stable Hydration Status: Adequately Hydrated Nausea & Vomiting: No Nausea or Vomiting Pain: Pt. Denies Any Pain Peripheral Nerve Block: Patient did not receive a nerve block
[2022-08-25 09:20] VITALS: BP 136/78; PULSE 69; RESP 16; TEMP 36.6; O2SAT 97
== END 2022-08-25 09:45 | disposition home or self-care (01) ==
PROVIDERS: PCP Family Medicine; Visit Provider Student in an Organized Health Care Education/Training Program
PROC: 0DJD8ZZ Inspection of Lower Intestinal Tract, Via Natural or Artificial Opening Endoscopic (ICD-10-PCS; CPT 45378; principal; 2022-08-25 08:15)
DX: Z12.11 Encounter for screening for malignant neoplasm of colon (principal); Z80.0 Family history of malignant neoplasm of digestive organs; Z86.010 Personal history of colon polyps; K57.30 Diverticulosis of large intestine without perforation or abscess without bleeding; K64.1 Second degree hemorrhoids; K63.5 Polyp of colon
CPT/HCPCS: 45380; 88305

== ENCOUNTER → 2022-09-01 13:03 | Outpatient (BNVA) | payer MEDICARE, MEDICAID, SELFPAY | PROVIDERS: PCP Family Medicine; Referring Provider Family Medicine; Visit Provider Student in an Organized Health Care Education/Training Program | DX: T84.82XA Fibrosis due to internal orthopedic prosthetic devices, implants and grafts, initial encounter (principal); Z96.652 Presence of left artificial knee joint | CPT/HCPCS: 99214 ==

== ENCOUNTER 2022-09-09 14:51 | Outpatient (CLI) | payer MEDICARE, MEDICAID, SELFPAY ==
--- NOTE | 2022-09-09 | DI.US_ITS ---
Exam(s) US LOWER EXTREMITY VENOUS LT EXAM: US LOWER EXTREMITY VENOUS LT CLINICAL HISTORY: LEFT CALF PAIN M79.662 R/O DVT TECHNIQUE: Grayscale, color, and doppler imaging of the deep venous system of the left lower extremi ty was performed. COMPARISON: US US OR ANESTHESIA from 03/12/2021 FINDINGS: There is no evidence of intraluminal thrombus and there is normal compression and augmentation demons trated within the common femoral vein, femoral vein, and popliteal vein. In the ipsilateral calf the interrogated veins also exhibit normal compression/ augmentation properti es. The ipsilateral saphenofemoral junction is patent. IMPRESSION: 1. No evidence of DVT in the left lower extremity. DATA REPOSITORY:
== END 2022-09-09 15:11 ==
LOC: DI 14:56
PROVIDERS: PCP Family Medicine; Visit Provider Physician Assistant
DX: M79.662 Pain in left lower leg (principal)
CPT/HCPCS: 93971

== ENCOUNTER 2022-10-07 12:20 | Day surgery (SDC) | payer MEDICARE, MEDICAID, SELFPAY ==
[2022-10-07] VITALS (7 sets, daily range): BP systolic 99–177; BP diastolic 60–107; PULSE 64–84; RESP 17–24; TEMP 36.3–36.7; O2SAT 94–99; BMI 26.6
[2022-10-07] MEDS: Acetaminophen 500 MG TAB 1000 MG PO (12:57)
[2022-10-07] MEDS: Celecoxib 200 MG CAP 400 MG PO (12:57)
[2022-10-07] MEDS: Lactated Ringers 1,000 ML 80 ML IV (13:07)
--- NOTE | 2022-10-07 13:45 | W.ANESPRE ---
General Info Date of Service Date Performed: 10/07/22 Height: 5 ft 3 in Weight: 68.1 kg Body Mass Index (BMI): 26.6 Surgical Procedure: Operation Date: 10/07/22 14:40 Proposed Procedure Side Surgeon p Knee Arthroscopy, Synovectomy Left Angel Joshua MD Meds Allergies and Home Medications Allergies Allergy/AdvReac Type Severity Reaction Status Date / Time No Known Allergies Allergy Verified 10/07/22 12:43 Home Medication Medication Instructions Recorded lisinopril 2.5 mg tablet 2.5 mg PO DAILY 02/22/14 pravastatin 20 mg tablet 20 mg PO DAILY 02/22/14 betamethasone dipropionate 0.05 % 15 g topical PRN PRN 07/20/17 topical ointment acetaminophen 500 mg tablet 500 mg PO Q6H PRN pain #60 tabs 02/05/22 ibuprofen 600 mg tablet 600 mg PO TID PRN pain #60 tabs 02/05/22 omega 8-pey-jdq-fish oil 100 1 cap PO DAILY 03/13/22 mg-160 mg-1,000 mg capsule (Fish Oil) potassium 99 mg PO DAILY 03/13/22 aspirin 81 mg tablet,delayed 81 mg PO DAILY 04/01/22 release (Adult Aspirin Regimen) triamcinolone acetonide 0.5 % 1 applic topical BID 04/01/22 topical cream Current Visit Medications: Current Medications Generic Name Dose Route Start Last Admin Trade Name Freq PRN Reason Stop Dose Admin Acetaminophen 1,000 mg 10/07/22 06:00 10/07/22 12:57 Acetaminophen 500 Mg Tab PO 10/07/22 16:00 1,000 mg PREOP TEDDY Administration Celecoxib 400 mg 10/07/22 06:00 10/07/22 12:57 Celecoxib 200 Mg Cap PO 10/07/22 16:00 400 mg PREOP TEDDY Administration Cefazolin Sodium/Dextrose 2 gm in 50 mls @ 100 mls/hr 10/07/22 06:00 Ancef Duplex IVPB 10/07/22 16:00 PREOP TEDDY Ringer's Solution 1,000 mls @ 80 mls/hr 10/07/22 06:00 10/07/22 13:07 IV 11/05/22 23:59 80 mls/hr INFUSION TEDDY Administration IV Miscellaneous Supplies 1 each 10/07/22 06:00 Iv Access IV 11/05/22 23:59 DIRECTED TEDDY Sodium Chloride 0 ml 10/07/22 06:00 Normal Saline Flush 10 Ml Syr IV 11/05/22 23:59 PRN PRN Sodium Chloride 0 ml 10/07/22 06:00 Normal Saline 10 Ml Vial IJ 11/05/22 23:59 DIRECTED PRN Sterile Water 0 ml 10/07/22 06:00 Water,Injection,Sterile 10 Ml Vial IJ 11/05/22 23:59 DIRECTED PRN PFSH Active Problems Active Problems: Problem Status Onset Code Hyperplastic colon polyp ~08/25/22 K63.5 Chronic kidney disease N18.9 Screening for colon cancer Z12.11 Neoplasm of unspecified behavior of bone, soft tissue, and skin D49.2 Tendinitis of long head of biceps brachii of right shoulder M75.21 History of total left knee replacement 03/12/21 Z96.652 Arthrofibrosis of total knee replacement 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 Medical History Medical History Actinic keratoses Arm pain, right Bilateral carotid bruits Facial twitching Family hx of colon cancer Hair loss Hand eczema Hx of adenomatous colonic polyps Hyperlipidemia Hypertension Knee pain, left Menopause Objective pulsatile tinnitus Osteoarthritis Pain, joint, shoulder, right Varicose veins of left lower extremity Surgical History Surgical History Colonoscopy - MAC (08/10/17) History of colonoscopy with polypectomy (~08/25/22) Hx of cataract extraction Tobacco Smoking/Tobacco Use Status: Never Alcohol Alcohol Intake: current Alcohol intake frequency: 3 or more drinks per day Alcohol type: hard liquor Substance Use Substance use: Never Substance use type: does not use Vital Signs and Lab Results Vital Signs Most Recent Vital Signs in EMR: Most Recent Vital Signs Temp Pulse Resp BP Pulse Ox 36.7 C 84 17 177/107 H 96 10/07/22 12:52 10/07/22 12:52 10/07/22 12:52 10/07/22 12:52 10/07/22 12:52 Lab Results Blood Type / Crossmatch: No Data to Display Complete Blood Count: No Data to Display Complete Metabolic Panel: No Data to Display Liver Function Panel: No Data to Display Coagulation Panel: No Data to Display Cardiac Panel: No Data to Display Arterial Blood Gas: No Data to Display Venous Blood Gas: No Data to Display Pancreas Panel: No Data to Display Thyroid Panel: No Data to Display Infectious Disease: No Data to Display Blood Cultures: No Data to Display Toxicology Panel: No Data to Display Imaging and Studies Imaging and Studies Study information below may be from another EMR and interpreted by another provider. Please see original notes in EMR for more complete details. Carotid Artery Summary:: 10/2015: CONCLUSION: No evidence of a hemodynamically significant carotid stenosis. Anesthesia Assessment and Plan Anesthesia History Personal History: No History of Anesthesia Complications Family History: No Family History of Anesthesia Complications Exercise Tolerance Exercise Tolerance: Metabolic Equivalents>4 Pertinent Negatives Pertinent Negatives: No Symptoms of GERD, No Major Cardiovascular Symptoms or Complaints, No Major Pulmonary Symptoms or Complaints and No History of CVA/TIA Cardiac & Pulmonary Exam Cardiac Exam: Normal S1/S2 Heart Sounds Pulmonary Exam: Clear Bilateral Breath Sounds Implantable Cardiac Device Does patient have a Pacemaker or an ICD?: No Airway Exam Known Difficult Airway: No Mallampati Class: 3 Mouth Opening: Normal (> 3cm) Thyromental Distance: Less than 3 cm Neck Range of Motion: Full ROM Neck Circumference: Normal Teeth Condition: Normal Dentition and Removable Dentures/Plates Upper ASA Classification ASA Score: ASA 2 Emergency Case?: No NPO Status NPO Status: NPO Clears >2 hours, Solids >8 hours Anesthesia Plan Resuscitation Status: Full Code Anesthesia Technique: Spinal Anesthesia Airway Planned: Natural Airway Monitors Used: Standard Monitors
--- NOTE | 2022-10-07 14:36 | W.PREOPHP ---
Assessment and Plan Assessment and plan (1) Arthrofibrosis of total knee replacement: Status: Acute Assessment and plan: Marline is a 72-year-old who is status post left knee replacement. Unfortunate, she has struggled with range of motion. She did have improvements after previous arthroscopic synovectomy with manipulation. However, over the winter she regressed to a point where she only had about 90 to 95 degrees of flexion. She reports pain as she tries to deep flex the knee. Otherwise, she does not have pain with the knee. Given that she had improvement with the previous procedure and she does have any other worrisome findings I do think is reasonable to to attempt the arthroscopic synovectomy with manipulation 1 more time. If this were to help but then symptoms returned then arthroscopic synovectomy would not be an option an open synovectomy could be tried. Further vesication into component placement and potential loosening would also be considered although she does not have symptoms to suggest that. She has had no changes to her health. She denies any chest pain or shortness of breath. She is cleared for surgery today. I reviewed the technical features of the surgery. I discussed the risk to include bleeding, infection, pain, recurrent stiffness. Despite these risk, she elects to proceed. History of Present Illness History of Present Illness Chief Complaint: Left knee arthrofibrosis Narrative: Marline is a 72-year-old who is status post left knee arthroplasty. Unfortunate, she has struggle with stiffness. She underwent a synovectomy and manipulation on February 05, 2022. She had improvement with her range of motion but unfortunately started regressing. She presented in the spring with limited motion which is painful at the extremes. She denies any start of pain. She continues to have some limitations with the motion in this fight of motion causes her discomfort. She still able to be independent although she wishes she had more motion. She denies any recent health changes. No chest pain or shortness of breath. Review of Systems All systems reviewed & are unremarkable except as noted in HPI and below PFSH All Active Problems Hyperplastic colon polyp (Acute ~08/25/22) Chronic kidney disease (Chronic) Screening for colon cancer (Acute) Neoplasm of unspecified behavior of bone, soft tissue, and skin (Acute) Tendinitis of long head of biceps brachii of right shoulder (Acute) History of total left knee replacement (Acute 03/12/21) DOS 03/12/21 Arthrofibrosis of total knee replacement (Acute) LEFT S/P arthroscopy and HAFSA: 02/05/2022 Medical History Actinic keratoses Arm pain, right Bilateral carotid bruits Facial twitching Family hx of colon cancer Hair loss Hand eczema Hx of adenomatous colonic polyps Hyperlipidemia Hypertension Knee pain, left Menopause Objective pulsatile tinnitus Osteoarthritis Pain, joint, shoulder, right Varicose veins of left lower extremity Surgical History Colonoscopy - MAC (08/10/17) History of colonoscopy with polypectomy (~08/25/22) Hx of cataract extraction Family History Mother Colon cancer Social History Smoking/Tobacco Use Status: Never Smoking risk assessment performed?: Yes Alcohol Intake: current Alcohol Intake frequency: 3 or more drinks per day Alcohol type: hard liquor Drug use: Never Substance use type: does not use Do you feel safe at home: Yes Do you feel safe in your relationship?: Yes Meds Allergies and Home Medications Allergies Allergy/AdvReac Type Severity Reaction Status Date / Time No Known Allergies Allergy Verified 10/07/22 12:43 Home Medications Medication Instructions Recorded Confirmed Type lisinopril 2.5 mg tablet 2.5 mg PO DAILY 02/22/14 10/07/22 History pravastatin 20 mg tablet 20 mg PO DAILY 02/22/14 10/07/22 History betamethasone dipropionate 0.05 % 15 g topical PRN PRN 07/20/17 10/07/22 History topical ointment acetaminophen 500 mg tablet 500 mg PO Q6H PRN pain #60 tabs 02/05/22 10/07/22 Rx ibuprofen 600 mg tablet 600 mg PO TID PRN pain #60 tabs 02/05/22 10/07/22 Rx omega 4-pso-xfv-fish oil 100 1 cap PO DAILY 03/13/22 10/07/22 History mg-160 mg-1,000 mg capsule (Fish Oil) potassium 99 mg PO DAILY 03/13/22 10/06/22 History aspirin 81 mg tablet,delayed 81 mg PO DAILY 04/01/22 10/07/22 History release (Adult Aspirin Regimen) triamcinolone acetonide 0.5 % 1 applic topical BID 04/01/22 10/07/22 History topical cream Exam Resp Effort & Inspection: normal respiratory effort Auscultation: clear to auscultation bilaterally Cardio Rate: regular rate Rhythm: regular rhythm Results Last Vital Signs Temp 36.7 C 10/07/22 12:52 Pulse 84 10/07/22 12:52 Resp 17 10/07/22 12:52 BP 177/107 H 10/07/22 12:52 Pulse Ox 96 10/07/22 12:52
--- NOTE | 2022-10-07 14:40 | PDOC.DSDIS_ITS ---
Date of service: 10/07/22 Time of Service: 15:11 Discharge Plan Disposition Patient Disposition: Home Condition: Good Discharge Details Reason For Visit: Left Knee Arthrofibrosis Attending Provider: Angel Joshua Primary Care Provider: Brook Leon Home Meds and New Rx's Prescriptions: New tramadol 50 mg tablet 50 mg PO Q8H PRNQty: 10 0RF Continued potassium 99 mg PO DAILY Patient Comments: over the counter; its been a couple months 08/25/22 Fish Oil 100-160-1,000 mg capsule 1 cap PO DAILY betamethasone dipropionate 15 GM ointment 15 g Topical PRN PRN aspirin [Adult Aspirin Regimen] 81 mg tablet,delayed release (DR/EC) 81 mg PO DAILY triamcinolone acetonide 0.5 % cream 1 applic topical BID pravastatin 20 MG tablet 20 mg PO DAILY lisinopril 2.5 MG tablet 2.5 mg PO DAILY acetaminophen 500 mg tablet 500 mg PO Q6H PRN (Reason: pain) Qty: 60 2RF ibuprofen 600 mg tablet 600 mg PO TID PRN (Reason: pain) Qty: 60 0RF Discharge Instructions Additional Instructions: Knee Scope Manipulation Discharge Instructions Activity: You should begin moving as soon as possible. You may work on flexion but also equally maintain extension. You may bear weight as tolerated, using crutches only for support/comfort. You should apply ice to help with swelling and elevate when possible (especially in the first few days). Dressings: The knee dressing may come down after 48 hours. You may shower and get the wound wet at that time. You should keep the wounds covered with a bandaid until follow-up. Medications: - Rarely does this require any stronger pain medications, however, I called in Tramadol if you need something for pain to allow you to continue to work on range of motion exercises. - Recommend to take up to 500mg-1000mg of Acetaminophen (Tylenol) and 600mg of Ibuprofen (Advil) every 8 hours as needed. These larger strength tablets were called in but you also may use [id number]. Follow-up: ~10 days Referrals: Angel Joshua MD [ [facility] STAFF PHYSICIAN] - Equipment/Supplies: Walker Activity:: Activity as Tolerated Remove Dressings/Wound Care:: 48 hours Shower/Bathe:: 48 hours Diet:: As Tolerated Discharge Orders Discharge Orders: Discharge Order (Routine); Ordered 10/07/22 Ordered By: Angel Joshua DS: Diagnosis Discharge Diagnosis (1) Arthrofibrosis of total knee replacement: Status: Acute
[2022-10-07] MEDS: ceFAZolin 2 GM/50 ML BAG IVPB (15:06)
[2022-10-07] MEDS: EPINEPHrine 30 MG/30 ML VIAL (15:31)
[2022-10-07] MEDS: Bupivacaine 0.5% Pres-Free 30 ML VIAL (15:47)
--- NOTE | 2022-10-07 15:56 | ROE_ITS ---
Date of service: 10/07/22 Time of Service: 15:56 Operative Note Operative Note DATE OF PROCEDURE: 10/07/22 PRE-OP DIAGNOSIS: Arthrofibrosis of Knee Replacement - LEFT Knee POST-OP DIAGNOSIS: same PROCEDURE: Arthroscopic Synovectomy of 3 Compartments with Manipulation - Left Knee SURGEON: Angel Joshua ANESTHESIA TYPE: Spinal Refer to Anesthesia Record ESTIMATED BLOOD LOSS: 5 PATHOLOGY: none sent COMPLICATIONS: None Patient was transported to: PACU Patient's condition: stable Indications: I have seen Marline in clinic for symptoms of arthrofibrosis of the knee following knee replacement surgery. Nonoperative measures were exhausted but disability due to lack of motion persisted. I discussed knee arthroscopy with synovectomy with maniuplation with the patient. SHe had this previously done with great results but the stiffness returned. I reviewed the risks of the procedure to include, but not limited to, bleeding, infection, pain, continued stiffness, recurrence, blood clot. Despite these risks, the patient elected to proceed. Findings: Preoperative Range of Motion: Flexion: 95 Extension:5 Postoperative Range of Motion: Flexion:130 Extension:5 Procedure Description: Marline was greeted in the preoperative holding area where the correct side was identified and marked. The consent was reviewed with the patient and signed. The history and physical was updated. All questions were answered. She was taken back to the operating room. The patient was placed into the supine position on the operating room table. All bony prominences were well padded. Prophylactic antibiotics in the form of Cefazolin were administered. Preoperative range of motion was assessed as 5 - 95. The left leg was then prepped with Chloraprep and draped in a standard fashion with stockinette and extremity drape. A timeout to confirm correct identity, side and site, procedure, allergies, anesthesia, and medical concerns was performed. The leg was placed into a pneumatic leg macdonald, [id number]. A standard lateral portal was made at the lateral border of the patella tendon in line with the inferior pole of the patella, soft spot. The skin and deep tissue was incised sharply and the blunt trochar was inserted atraumatically. At this point had visualization of the femoral component. A superolateral portal was then established with spinal needle localization just superior and lateral to the pa tella. A knife was taken down through the skin and soft tissue to enter the knee joint. Starting in the superior compartment above the femoral component and anterior to the femur I released all scarring between the anterior femoral synovium and the overlying extensor mechanism. This was taken through all of any noticeable scar tissue until the superior patellar pouch was fully released and mobile. This resection was carried out mostly with electrocautery as well as shaver. Once this was released fully from lateral to medial superiorly I then continue working down the lateral gutter. All scar tissue in the lateral gutter was released so there is normal space and movement between the capsular tissues and the edge of the femoral component and femur. This was taken down through the lateral gutter such that I was able to identify the polyethylene to its posterior corner. Once again, all scar tissue in this area was resected so the polyethylene was easily visible and there is no interposed tissue in the back or the polyethylene was identified. I think continue to work anteriorly. To continue the synovectomy from the lateral compartment to the anterior compartment into the medial compartment, I placed a medial portal under spinal needle localization. Once this was in place it became another working portal and I continued the synovectomy through the anterior compartment to the medial compartment. Once again, I freed up the medial gutter so I was able to visualize the polyethylene from the anterior posterior margins. There is no interposed tissue after full synovectomy was performed. Adhesions between the capsule and the femur were released. This was continued up the medial gutter until it met up with the releases performed previously in the superior compartment. Any remnant scar tissue from around the patella was then removed with a shaver and electrocautery. The arthroscope was brought back into the suprapatellar pouch and the leg was in full extension. The knee was thoroughly irrigated with the arthroscopic fluid on high flow and pressure. Inflow was stopped and excess fluid was removed. The leg was removed from the spider leg macdonald and manipulation was performed. I first push the knee into flexion and was able to obtain 130 degrees. I then worked the knee into extension, slowly applying an anterior to posterior directed pressure with support of the knee and no significant lever arm. This was cycled multiple times until I was able to obtain extension of 5 degrees. The wounds were closed with 4-0 Nylon. 0.25% ropivacaine was injected around the portal sites and into the knee. The wounds were dressed with Xeroform, 4x4 gauze, ABD pad, Kerlix and an TOLU wrap. A cryo-cuff was applied. The patient tolerated the procedure well and was returned to the Same Day Surgery area in a stable condition suffering no known complication..
--- NOTE | 2022-10-07 16:41 | W.ANESPOSTOP ---
Postoperative Evaluation Date, Time and Location Date Performed: 10/07/22 Time Performed: 16:41 Patient Location: Day Surgery Unit Vital Signs Most Recent Imported Vital Signs: Most Recent Vital Signs Temp Pulse Resp BP Pulse Ox 36.4 C L 74 17 130/73 97 10/07/22 16:09 10/07/22 16:09 10/07/22 16:09 10/07/22 16:09 10/07/22 16:09 Pain Score Most Recent Pain Score: Most Recent Pain Score Pain Level 0 10/07/22 16:09 Assessment Mental Status: Awake (Alert & Oriented to Patient Baseline) Airway and Respiratory Function: Patent airway with normal (patient baseline) respiratory exam Cardiovascular Function: Hemodynamically Stable Hydration Status: Adequately Hydrated Nausea & Vomiting: No Nausea or Vomiting Pain: Pain is tolerable per patient Peripheral Nerve Block: Patient did not receive a nerve block
== END 2022-10-07 17:28 | disposition home or self-care (01) ==
PROVIDERS: PCP Family Medicine; Visit Provider Student in an Organized Health Care Education/Training Program
PROC: (CPT 29870; principal; 2022-10-07 14:30)
DX: T84.82XA Fibrosis due to internal orthopedic prosthetic devices, implants and grafts, initial encounter (principal); N18.9 Chronic kidney disease, unspecified; Z96.652 Presence of left artificial knee joint; I12.9 Hypertensive chronic kidney disease with stage 1 through stage 4 chronic kidney disease, or unspecified chronic kidney disease
CPT/HCPCS: 29876; J0690; J1100; J1885; J2250; J2405; J2704

== ENCOUNTER → 2022-10-20 14:41 | Outpatient (BNVA) | payer MEDICARE, MEDICAID, SELFPAY | PROVIDERS: PCP Family Medicine; Referring Provider Family Medicine; Visit Provider Student in an Organized Health Care Education/Training Program | DX: Z47.1 Aftercare following joint replacement surgery (principal); T84.82XA Fibrosis due to internal orthopedic prosthetic devices, implants and grafts, initial encounter; Z96.652 Presence of left artificial knee joint ==

== ENCOUNTER 2022-11-16 18:40 | Observation (INO) | payer MEDICARE, MEDICAID, SELFPAY ==
[2022-11-16] VITALS (82 sets, daily range): BP systolic 132–200; BP diastolic 54–131; PULSE 0–118; RESP 13–33; TEMP 37.1–37.2; O2SAT 87–98
--- NOTE | 2022-11-16 18:43 | ED.GENADUL_ITS ---
Discharge Plan Discharge Details Chief Complaint: CVA/TIA Clinical Impression: TIA (transient ischemic attack) Primary Care Provider: [facility] Provider: Ruben Jasmine Home Meds and New Rx's Prescriptions: No Action potassium 99 mg PO DAILY Patient Comments: over the counter; its been a couple months 08/25/22 Fish Oil 100-160-1,000 mg capsule 1 cap PO DAILY betamethasone dipropionate 15 GM ointment 15 g Topical PRN PRN aspirin [Adult Aspirin Regimen] 81 mg tablet,delayed release (DR/EC) 81 mg PO DAILY triamcinolone acetonide 0.5 % cream 1 applic topical BID pravastatin 20 MG tablet 20 mg PO DAILY lisinopril 2.5 MG tablet 2.5 mg PO DAILY tramadol 50 mg tablet 50 mg PO Q8H PRNQty: 10 0RF acetaminophen 500 mg tablet 500 mg PO Q6H PRN (Reason: pain) Qty: 60 2RF ibuprofen 600 mg tablet 600 mg PO TID PRN (Reason: pain) Qty: 60 0RF Medical Decision Making This is an overall well-appearing mildly tachycardic and normothermic 72-year-old female with transient left sided facial droop and reported slurred speech that has subsequently resolved concerning for TIA. Patient has an NIH stroke scale of 0 g and iven her lack of deficits I do not feel that she is a candidate for tPA as the risks outweigh the benefits. She has a specific exclusion based on her spontaneously clearing stroke symptoms. No tonic-clonic activity nor history of seizures to suggest need for EEG I do not feel that the patient requires antiseizure medications. No fever nor nuchal rigidity to suggest meningitis I do not feel that the patient requires a lumbar puncture. No confusion to suggest encephalitis. No nausea nor vomiting to suggest increased risk for acute electrolyte abnormalities. Patient is a daily drinker but denies history of withdrawal. She is markedly hypertensive. No history of head trauma to suggest increased risk for intracranial hemorrhage. Reassuring normal fingerstick blood glucose per paramedics. Will obtain collateral history from the patient's family. Patient does report history of paroxysmal atrial fibrillation. We will obtain a twelve-lead ECG to ensure that she is not in atrial fibrillation. She is not anticoagulated so this certainly makes her high risk for cardioembolic disease. Given no visual changes no aphasia and no neglect I did not think that the patient was likely to have a large vessel occlusion so I did not obtain a CT angio of her head and neck as I did not think that she would be a thrombectomy candidate. 7:[address] head with no acute intracranial abnormalities. CBC with no anemia thrombocytopenia nor leukocytosis. Basic metabolic panel with no MIR. Mild anion gap and mild hyperglycemia but not consistent with DKA. Mild hypokalemia. Ethanol mildly elevated at 15.9 mg/dL. ECG showing narrow complex normal sinus rhythm with first-degree AV block. No acute injury pattern. Will order 325 mg of aspirin and given concern for TIA versus CVA will permit permissive hypertension. Troponin negative and normal magnesium. 7:45 PM I spoke with Dr. Mao from the hospitalist team. He requested CTA head to assess for large vessel occlusion. I canceled the MR angiogram but will keep the MRI brain. I spoke to Elizabet, the patient's daughter. She reported that she had slurred speech and left facial droop. There was concern for a reaction to shrimp for which she received one 25mg tablet of diphehydramine. Her symtpoms lasted five minutes. Symptoms resolved by the time paramedics. Patient's daughter Zee will reportedly be here soon. 7:55 PM I met with the patient and her sister Zee. Zee felt that the patient was having some mild difficulty speaking. Patient reportedly had difficulty swallowing her aspirin. She does not feel currently that she is having difficulty speaking. Will sign out to the oncoming overnight provider, Dr. Zacarias, pending read of her CTA and hospitalization. Given her waxing waning symptoms I do feel that she is a candidate for tPA at this juncture. HPI General Date/Time Provider Initiated Documentation: 11/16/22 18:42 . HPI Narrative: This is a 72-year-old female with history of hypertension and hyperlipidemia and paroxysmal atrial fibrillation not on anticoagulation who arrives via paramedics in the setting of transient slurred speech and left-sided facial droop. This occurred at approximately 5:30 PM this afternoon. Patient reportedly had had 3 cocktails during the day. Patient was in her usual state of health earlier today. She denies history of diabetes. She is a daily drinker but denies history of withdrawal. She denies routine tobacco and illicits. She had no preceding fevers chills nausea vomiting chest pain dysuria nor frequency. Related Data Home Medications Medication Instructions Recorded Confirmed lisinopril 2.5 mg tablet 2.5 mg PO DAILY 02/22/14 10/20/22 pravastatin 20 mg tablet 20 mg PO DAILY 02/22/14 10/20/22 betamethasone dipropionate 0.05 % 15 g topical PRN PRN 07/20/17 10/20/22 topical ointment omega [id number] oil 100 1 cap PO DAILY 03/13/22 10/20/22 mg-160 mg-1,000 mg capsule (Fish Oil) potassium 99 mg PO DAILY 03/13/22 10/20/22 aspirin 81 mg tablet,delayed 81 mg PO DAILY 04/01/22 10/20/22 release (Adult Aspirin Regimen) triamcinolone acetonide 0.5 % 1 applic topical BID 04/01/22 10/20/22 topical cream acetaminophen 500 mg tablet 500 mg PO Q6H PRN pain #60 tabs 10/07/22 10/20/22 ibuprofen 600 mg tablet 600 mg PO TID PRN pain #60 tabs 10/07/22 10/20/22 tramadol 50 mg tablet 50 mg PO Q8H PRN #10 tabs 10/07/22 10/20/22 Previous Rx's Medication Instructions Recorded acetaminophen 500 mg tablet 500 mg PO Q6H PRN pain #60 tabs 10/07/22 ibuprofen 600 mg tablet 600 mg PO TID PRN pain #60 tabs 10/07/22 tramadol 50 mg tablet 50 mg PO Q8H PRN #10 tabs 10/07/22 Allergies Allergy/AdvReac Type Severity Reaction Status Date / Time No Known Allergies Allergy Verified 10/20/22 14:45 PFSH All Active Problems TIA (transient ischemic attack) (Acute) Hyperplastic colon polyp (Acute ~08/25/22) Chronic kidney disease (Chronic) Screening for colon cancer (Acute) Neoplasm of unspecified behavior of bone, soft tissue, and skin (Acute) Tendinitis of long head of biceps brachii of right shoulder (Acute) History of total left knee replacement (Acute 03/12/21) DOS 03/12/21 Arthrofibrosis of total knee replacement (Acute) LEFT S/P arthroscopy and HAFSA: 02/05/2022 Medical History Actinic keratoses Arm pain, right Bilateral carotid bruits Facial twitching Family hx of colon cancer Hair loss Hand eczema Hx of adenomatous colonic polyps Hyperlipidemia Hypertension Knee pain, left Menopause Objective pulsatile tinnitus Osteoarthritis Pain, joint, shoulder, right Varicose veins of left lower extremity Surgical History Colonoscopy - [facility] (08/10/17) History of colonoscopy with polypectomy (~08/25/22) Hx of cataract extraction Family History Mother Colon cancer Social History Smoking/Tobacco Use Status: Never Smoking risk assessment performed?: Yes Alcohol Intake: current Alcohol Intake frequency: 3 or more drinks per day Alcohol type: hard liquor Drug use: Never Substance use type: does not use Do you feel safe at home: Yes Do you feel safe in your relationship?: Yes Exam Narrative Exam Narrative: General: Well-appearing in no acute distress speaking in complete sentences. Head: Normocephalic, atraumatic. Eye: Pupils equal, round reactive to light. Extraocular eye movements intact. No conjunctival injection. No scleral icterus. Ear, nose, mouth, throat: Grossly normal inspection. Normal voice, handling secretions normally. Neck: Trachea midline. Cardiovascular: Well-perfused distal extremities. Regular rate and rhythm. Respiratory: Nonlabored respiration. Clear lungs bilaterally. Gastrointestinal: Nondistended abdomen. Musculoskeletal: No edema. Moving all 4 extremities spontaneously. Skin: Normal for age and race, grossly normal temperature and turgor. No acute rash. Neurologic: Alert and appropriate, no apparent acute deficits. GCS 15. Cranial nerves II through XII intact grossly. No dysmetria. No dysdiadochokinesia. No pronator drift. Romberg deferred. 5 out of 5 bilateral upper and lower extremity strength. NIH stroke scale 0. Psychiatric: Mood and manner are appropriate. Grooming and personal hygiene are appropriate.
--- NOTE | 2022-11-16 18:45 | DI.CT_ITS ---
Exam(s) CT HEAD - STROKE PROTOCOL EXAM: CT HEAD - STROKE PROTOCOL CLINICAL HISTORY: Concern for CVA. TECHNIQUE: Imaging Protocol: Axial computed tomography images with coronal and sagittal reformatted images were created and reviewed COMPARISON: No exams were available for comparison FINDINGS: Ventricles and Extra axial spaces: Normal in size and morphology for the patient's age. Hemorrhage: None. Cerebral parenchyma: No evidence of acute infarct or mass. Incidental basal ganglia calcifications. Midline shift: None. Brainstem/Cerebellum: Normal. Calvarium: Normal. Visualized Paranasal sinuses/Mastoids: Opacification of right maxillary sinus which is diminutive. Soft Tissues: Unremarkable. IMPRESSION: No acute intracranial process. RADIATION DOSE DELIVERED: 638.41mGy.cm Total DLP DATA REPOSITORY: All CT scans at this facility are submitted to the National Radiology Data Registry (NRDR) Dose Index Registry (DIR) with the [employer] (ACR). RADIATION OPTIMIZATION: All CT scans at this facility use at least one of these dose optimization te chniques: automated exposure control; mA and/or kV adjustment per patient size (includes targeted exa ms where dose is matched to clinical indication); or iterative reconstruction.
--- NOTE | 2022-11-16 18:45 | RT.EKG_ITS ---
APPROVED REPORT Exam: Resting ECG Reason for Exam: [facility] Patient Location: E HR:96 bpm ECG Measurements Heart Rate 96 AXIS UT 202 P 14 QRSd 99 QRS -10 QT 356 T 44 QTc 451 Conclusion Sinus rhythm...normal P axis, V-rate 60- 99 Left ventricular hypertrophy...multiple voltage criteria Inferior infarct, old...Q >35mS, II III aVF Anterior infarct, old...Q >40mS, abnormal ST-T, V2-V5 Narrow complex normal sinus rhythm at a rate of 96. Left axis deviation LVH based on voltage criteri a in aVL. Mild inferior ST segment elevation leads II and aVF. Mild ST segment depression in aVL. Mild ST segment elevation in V5 and V6. No prior for comparison.
--- NOTE | 2022-11-16 18:51 | DI.RAD_ITS ---
Exam(s) XR CHEST 2V PA LATERAL EXAM: XR CHEST 2V PA LATERAL CLINICAL HISTORY: Concern for CVA TECHNIQUE: 2D digital imaging was performed. COMPARISON: No exams were available for comparison FINDINGS: HEART: Normal size. Mitral annular calcification. Aorta: Tortuous and calcified. PULMONARY VASCULATURE: Normal. LUNGS: Clear. PLEURAL SPACE: No pleural effusion or pneumothorax. BONE:Unremarkable for age. Soft tissues: Calcified thyroid nodule noted. IMPRESSION: No acute abnormality. DATA REPOSITORY: RADIATION DOSE DELIVERED:
[2022-11-16 19:11] LABS: Abs Immature Grans 0.02 10^3/uL (0.0-0.06); Absolute Basophil Count 0.05 10^3/uL (0.0-0.2); Absolute Eosinophil Count 0.27 10^3/uL (0.0-0.7); Absolute Lymphocyte Count 1.66 10^3/uL (1.2-3.4); Absolute Monocyte Count 0.53 10^3/uL (0.1-0.8); Absolute Neutrophil Count 4.78 10^3/uL (1.2-6.7); Basophils % 0.7; Eosinophils % 3.7; HCT 36.4 % (36.0-46.0); HGB 12.5 g/dL (11.2-15.7); Immature Grans % 0.3; Lymphocytes % 22.7; MCH 31.6 pg (27.0-33.0); MCHC 34.3 % (32.0-36.0); MCV 92 fL (80-95); MPV 10.2 fL (8.0-11.0); Monocytes % 7.3; Neutrophils % 65.3; Platelet Count 196 10^3/uL (130-400); RBC 3.95 10^6/uL (3.93-5.22); RDW 12.9 % (11.7-14.6); RDW-SD 43.6 fL; WBC 7.31 10^3/uL (4.4-10.8)
--- NOTE | 2022-11-16 19:19 | DI.VRAD_ITS ---
PROCEDURE INFORMATION: Exam: CT Head Without Contrast Exam date and time: 11/16/2022 7:12 PM Age: 72 years old Clinical indication: Stroke-like symptoms; Other: Concern for CVA TECHNIQUE: Imaging protocol: Computed tomography of the head without contrast. Other technique: STROKE PROTOCOL was implemented. COMPARISON: CTA BRAIN AND NECK 11/19/2015 2:30 PM FINDINGS: Brain: Basal ganglia calcifications. Chronic right caudate lacunar infarction No hemorrhage. Mild white matter disease. No mass effect. Cerebral ventricles: No ventriculomegaly. Paranasal sinuses: Opacification of the visualized right maxillary sinus. Mastoid air cells: Visualized mastoid air cells are well aerated. Bones/joints: Unremarkable. No acute fracture. Soft tissues: Unremarkable. IMPRESSION: No acute intracranial abnormality. Question right maxillary sinusitis ASSESSMENT: ASPECTS (Karen Stroke Program Early CT Score) is 10. Dictated and Authenticated by: Levi Elizabeth MD. Ordering:RENUKA Miranda MD
[2022-11-16 19:21] LABS: Anion Gap 11.8 mmol/L (3-11); BUN 19 mg/dL (7-18); CO2 26.2 mmol/L (21.0-32.0); CREATININE 1.1 mg/dL (0.55-1.02); Calcium 8.7 mg/dL (8.5-10.1); Chloride 107 mmol/L (98-107); Estimated GFR 52.73 (mL/min/1.73m2); Glucose 116 mg/dL (74-106); Potassium 3.4 mmol/L (3.5-5.1); Sodium 145 mmol/L (136-145)
[2022-11-16 19:22] LABS: ETHANOL BLOOD 15.9 mg/dL (<10)
[2022-11-16] MEDS: Normal Saline 500 ML IV (19:29)
--- NOTE | 2022-11-16 19:29 | DI.VRAD_ITS ---
PROCEDURE INFORMATION: Exam: XR Chest Exam date and time: 11/16/2022 7:18 PM Age: 72 years old Clinical indication: Other: Concern for CVA TECHNIQUE: Imaging protocol: Radiologic exam of the chest. Views: 2 views. COMPARISON: CTA BRAIN AND NECK 11/19/2015 2:30 PM FINDINGS: Question tube/line overlying the midline on the frontal projection not clearly visualized on the lateral film. Correlate clinically Lungs: Unremarkable. No consolidation. Pleural spaces: No pleural effusion. No pneumothorax. Heart/Mediastinum: Moderate aortic tortuosity. No cardiomegaly. Calcified left paratracheal thyroid nodule as noted on previous CT scan measuring 13-14 mm Bones/joints: Unremarkable. IMPRESSION: No acute findings. Dictated and Authenticated by: Levi Elizabeth MD. Ordering:RENUKA Miranda MD
[2022-11-16 19:30] LABS: Magnesium 2.1 mg/dL (1.8-2.4); Troponin I < 50 ng/L (<or=60)
--- NOTE | 2022-11-16 19:30 | DI.CT_ITS ---
Exam(s) CT BRAIN NECK CTA EXAM: CT BRAIN NECK CTA CLINICAL HISTORY: Concern for large vessel occlusion. TECHNIQUE: Imaging Protocol: Axial CT angiography was performed with multi-slice acquisition and mu lti-planar and 3D reconstructions. CONTRAST MATERIAL: Intravenous: Omnipaque 350 Contrast volume:structured data in ml COMPARISON: CT CTA BRAIN AND NECK from 11/19/[address] HEAD - STROKE PROTOCOL from 11/16/2022 FINDINGS: CT Head W contrast: Ventricles and Extra axial spaces: Normal in size and morphology for the patient's age. Hemorrhage: None. Cerebral parenchyma: Normal. Midline shift: None. Brainstem/Cerebellum: Normal. Calvarium: Normal. Visualized Paranasal sinuses/Mastoids: Clear. Soft Tissues: Unremarkable. Enhancement: Normal. CTA Brain W: Internal Carotid Arteries: Petrous: Normal. Cavernous: Normal. Cerebral: Normal. Middle Cerebral Arteries: Right: Mild irregularity in the distal M1 segment causing mild stenosis. No aneurysm or occlusion Left: No aneurysm, occlusion or significant stenosis. Anterior Cerebral Arteries: Right: No aneurysm, occlusion or significant stenosis. Left: No aneurysm, occlusion or significant stenosis. Posterior cerebral Arteries: Right: origin of P1 segment. No aneurysm, occlusion or significant stenosis. Left: No aneurysm, occlusion or significant stenosis. Vertebral Arteries: Right: No aneurysm, occlusion or significant stenosis. Left: Diminutive, terminates in PICA. No aneurysm, occlusion or significant stenosis. Basilar Artery: No aneurysm, or occlusion. Mild stenosis mid basilar artery. CTA Neck W: Common Carotid: Right: No dissection, occlusion or significant stenosis. Left: No dissection, occlusion or significant stenosis. External Carotid: Right: No dissection, occlusion or significant stenosis. Left: No dissection, occlusion or significant stenosis. Internal Carotid: Right: Calcified plaque at the bulb causing moderate stenosis. No dissection, no occlusion. Left: No dissection, occlusion. Calcified plaque at the bulb causing mild stenosis. Vertebral Artery: Right: No dissection, occlusion or significant stenosis. Left: Focal calcification at the origin the left vertebral artery causing severe stenosis. No dissec tion, or occlusion. Lung Apices: Respiratory motion. Bones: No acute abnormality. Degenerative changes. Soft Tissues: Normal. IMPRESSION: 1. CTA head: Question of irregularity and mild stenosis of the M1 segment of the right middle cerebra l artery. Mild stenosis mid basilar artery. 2. Unremarkable CT Head. 3. CTA neck: Focal severe stenosis of the origin of the left vertebral artery. Left vertebral artery diminutive. Moderate stenosis at right common carotid bulb secondary to calcified plaque RADIATION DOSE DELIVERED: 1,105.84mGy.cm Total DLP DATA REPOSITORY: All CT scans at this facility are submitted to the National Radiology Data Registry (NRDR) Dose Index Registry (DIR) with the [employer] (ACR). RADIATION OPTIMIZATION: All CT scans at this facility use at least one of these dose optimization te chniques: automated exposure control; mA and/or kV adjustment per patient size (includes targeted exa ms where dose is matched to clinical indication); or iterative reconstruction.
--- NOTE | 2022-11-16 19:46 | NUR.NOTE ---
attempted to give pt aspirin per MAR, pt unable to swallow. Able maintain own secretions but could not swallow water or pill. This RN had pt spit pill back out to prevent choking. pt also having increased slurred speech. no obvious facial droop at this time. MD Jasmine aware
[2022-11-16] MEDS: Omnipaque 350 MG/ML 100 ML BTL IJ (19:58)
[2022-11-16] MEDS: Normal Saline - Diluent 50 ML VIAL IJ (19:58)
[2022-11-16] MEDS: Normal Saline Flush 10 ML SYR IVP (19:59)
--- NOTE | 2022-11-16 20:47 | DI.VRAD_ITS ---
PROCEDURE INFORMATION: Exam: CTA Head With Contrast, Arteriography Exam date and time: 11/16/2022 7:59 PM Age: 72 years old Clinical indication: Stroke-like symptoms; Speech disturbance; Additional info: Concern for large vessel occlusion TECHNIQUE: Imaging protocol: Computed tomographic angiography of the head with contrast. Exam focused on the arteries. 3D rendering (Not supervised by radiologist): MIP and/or 3D reconstructed images were created by the technologist. Radiation optimization: All CT scans at this facility use at least one of these dose optimization techniques: automated exposure control; mA and/or kV adjustment per patient size (includes targeted exams where dose is matched to clinical indication); or iterative reconstruction. Contrast material: OMNIPAQUE 350; Contrast volume: 85 ml; Contrast route: INTRAVENOUS (IV); COMPARISON: CT HEAD - STROKE PROTOCOL 11/16/2022 7:12 PM FINDINGS: ANTERIOR CIRCULATION: Right internal carotid artery: Intracranial segment is patent with no significant stenosis. No aneurysm. Right middle cerebral artery: No occlusion. Question irregularities versus stenosis in the distal M1 segment No aneurysm. Right anterior cerebral artery: No occlusion or significant stenosis. No aneurysm. Left internal carotid artery: Intracranial segment is patent with no significant stenosis. No aneurysm. Left middle cerebral artery: No occlusion or significant stenosis. No aneurysm. Left anterior cerebral artery: No occlusion or significant stenosis. No aneurysm. POSTERIOR CIRCULATION: Right vertebral artery: No occlusion or significant stenosis. No aneurysm. Left vertebral artery: Diminutive and terminates in PICA. Basilar artery: No occlusion. Question stenosis in the mid segment No aneurysm. Right posterior cerebral artery: origin with hypoplasia of the P1 segment, a normal variation No occlusion or significant stenosis. No aneurysm. Left posterior cerebral artery: origin with hypoplasia of the P1 segment, a normal variation No occlusion or significant stenosis. No aneurysm. IMPRESSION: No large vessel occlusion. Question stenoses versus luminal irregularities in the distal right M1 segment Question stenosis in the mid basilar artery PROCEDURE INFORMATION: Exam: CTA Neck With Contrast Exam date and time: 11/16/2022 7:59 PM Age: 72 years old Clinical indication: Stroke-like symptoms; Speech disturbance; Additional info: Concern for large vessel occlusion TECHNIQUE: Imaging protocol: Computed tomographic angiography of the neck with contrast. 3D rendering (Not supervised by radiologist): MIP and/or 3D reconstructed images were created by the technologist. Radiation optimization: All CT scans at this facility use at least one of these dose optimization techniques: automated exposure control; mA and/or kV adjustment per patient size (includes targeted exams where dose is matched to clinical indication); or iterative reconstruction. Contrast material: OMNIPAQIE 350; Contrast volume: 85 ml; Contrast route: INTRAVENOUS (IV); COMPARISON: CTA BRAIN AND NECK 11/19/2015 2:30 PM FINDINGS: Right common carotid artery: No stenosis. No dissection or occlusion. Right internal carotid artery calcified plaque at the bulb with moderate stenosis. No dissection or occlusion. Right external carotid artery: No occlusion or stenosis of the origin. Left common carotid artery: Calcified plaque at the bulb with mild stenosis. No dissection or occlusion. Left internal carotid artery: No stenosis of the extracranial segment. No dissection or occlusion. Left external carotid artery: No occlusion or stenosis of the origin. Right vertebral artery: No stenosis. No dissection or occlusion. Left vertebral artery: Calcification at the origin with severe stenosis. No dissection or occlusion. Soft tissues: No significant soft tissue swelling. Bones/joints: No acute fracture. IMPRESSION: Severe short-segment stenosis at the origin of the left vertebral artery Moderate right and mild left carotid stenoses REFERENCES: NASCET CRITERIA. The degree of stenosis in the cervical segment of the internal carotid artery is based on NASCET criteria. Normal is no stenosis. Mild is less than 50% stenosis. Moderate is 50-69% stenosis. Severe is 70% to 99% stenosis. Total occlusion is no detectable patent lumen. Dictated and Authenticated by: Levi Elizabeth MD. Ordering:RENUKA Miranda MD
--- NOTE | 2022-11-16 21:16 | HPE_ITS ---
Date of service: 11/16/22 Time of Service: 21:17 Assessment and Plan Assessment and plan (1) TIA (transient ischemic attack): Start date: 11/16/22 Status: Acute Assessment and plan: This is a 72 year old lady with transient slurred speech and left facial droop with CTA showing severe short segment stenosis of the origin of the left vertebral artery patient having no posterior circulation symptoms and moderate right with mild left carotid stenosis the patient on aspirin already and to be started on Plavix. She does have a history of atrial fibrillation but none at anticoagulation and there were no evidence of embolus phenomenon on CTA. She will have further evaluation with echocardiogram and bubble study as well as cardiac monitoring overnight with MRI of the brain. She is a full code. (2) Hyperlipidemia: Assessment and plan: Replace pravastatin with high-dose Lipitor as patient's further evaluation. (3) Hypertension: Assessment and plan: Elevated with patient having 1 small dose of metoprolol which did not have much effect and on lisinopril daily. She will be observed overnight with permissive hypertension and initiate lisinopril in the morning with metoprolol p.o. to be reinitiated if needed. We will tolerate systolic blood pressures in the 180s to 200 range but do not want to drop the systolic below 140. (4) Hypokalemia: Start date: 11/16/22 Status: Acute Assessment and plan: Patient does have daily alcohol use and she will be repleted with IV potassium. Long-term she should do better with no alcohol and better diet with potassium foods. (5) Carotid stenosis, bilateral: Status: Chronic Assessment and plan: Mild to moderate stenosis with the patient on aspirin and Plavix will be initiated. Long-term she may need to be only on Plavix since she failed aspirin. Follow-up with neurology to discuss. Vascular surgery if progressive disease and patient should work harder on cardiovascular risk control. (6) Daily consumption of alcohol: Status: Chronic Assessment and plan: Patient did have an alcohol level upon admission and will be placed on CIWA protocol with oral benzodiazepine treatment as needed. Long-term she should stop daily alcohol consumption. She does have sequela of increased anion gap and appears slightly dry which was corrected with IV fluids. History of Present Illness History of Present Illness Chief Complaint: Left-sided facial droop and slurred speech Narrative: This is a 73-year-old female patient with a history of hypertension hyperlipidemia with also proximal atrial fibrillation who is not on anticoagulation but does drink alcohol daily. She was brought to the ED by her daughter who reported that she had had 3 cocktails during the day and was normal in the morning but began to have onset of slurred speech with left-sided facial droop which concerned her daughter. EMS was called and she had waxed and waned with her symptoms with symptoms completely resolved once in the ED. CT of the head showed no acute stroke or process but CTA of the head and neck did show some mild to moderate carotid stenosis with vertebral artery stenosis. Symptoms were waxing and waning and she was not thought to be a candidate for tPA or thrombectomy. She was admitted for observation with telemetry for atrial fibrillation with and updated echocardiogram with bubble study as well as MRI of the brain. She is a full code. The patient's hypertension was uncontrolled and she is on lisinopril daily and she did receive 1 dose of metoprolol low-dose with no significant change in blood pressure. She will be observed overnight with permissive hypertension and adjust medical therapy for hypertension long-term which may also work better with the patient off alcohol. She is on CIWA protocol because of alcohol use having an alcohol level upon admission with some slight increase in anion gap as well as increasing her baseline creatinine with gentle IV hydration administered. Review of Systems Narrative: 13 point review of systems otherwise unrevealing or stable. PFSH All Active Problems Daily consumption of alcohol (Chronic) Hypokalemia (Acute) Carotid stenosis, bilateral (Chronic) TIA (transient ischemic attack) (Acute) Hyperplastic colon polyp (Acute ~08/25/22) Chronic kidney disease (Chronic) Screening for colon cancer (Acute) Neoplasm of unspecified behavior of bone, soft tissue, and skin (Acute) Tendinitis of long head of biceps brachii of right shoulder (Acute) History of total left knee replacement (Acute 03/12/21) DOS 03/12/21 Arthrofibrosis of total knee replacement (Acute) LEFT S/P arthroscopy and HAFSA: 02/05/2022 Medical History Actinic keratoses Arm pain, right Bilateral carotid bruits Facial twitching Family hx of colon cancer Hair loss Hand eczema Hx of adenomatous colonic polyps Hyperlipidemia Hypertension Knee pain, left Menopause Objective pulsatile tinnitus Osteoarthritis Pain, joint, shoulder, right Varicose veins of left lower extremity Surgical History Colonoscopy - MAC (08/10/17) History of colonoscopy with polypectomy (~08/25/22) Hx of cataract extraction Family History Mother Colon cancer Social History Smoking/Tobacco Use Status: Never Smoking risk assessment performed?: Yes Alcohol Intake: current Alcohol Intake frequency: 3 or more drinks per day Alcohol type: hard liquor Drug use: Never Substance use type: does not use Do you feel safe at home: Yes Do you feel safe in your relationship?: Yes Meds Allergies and Home Medications Allergies Allergy/AdvReac Type Severity Reaction Status Date / Time No Known Allergies Allergy Verified 10/20/22 14:45 Home Medications Medication Instructions Recorded Confirmed Type lisinopril 2.5 mg tablet 5 mg PO DAILY 02/22/14 11/16/22 History pravastatin 20 mg tablet 20 mg PO DAILY 02/22/14 11/16/22 History betamethasone dipropionate 0.05 % 15 g topical PRN PRN 07/20/17 11/16/22 History topical ointment omega 0-zkg-nei-fish oil 100 1 cap PO DAILY 03/13/22 11/16/22 History mg-160 mg-1,000 mg capsule (Fish Oil) potassium 99 mg PO DAILY 03/13/22 10/20/22 History aspirin 81 mg tablet,delayed 81 mg PO DAILY 04/01/22 11/16/22 History release (Adult Aspirin Regimen) triamcinolone acetonide 0.5 % 1 applic topical BID 04/01/22 11/16/22 History topical cream acetaminophen 500 mg tablet 500 mg PO Q6H PRN pain #60 tabs 10/07/22 11/16/22 Rx ibuprofen 600 mg tablet 600 mg PO TID PRN pain #60 tabs 10/07/22 11/16/22 Rx tramadol 50 mg tablet 50 mg PO Q8H PRN #10 tabs 10/07/22 11/16/22 Rx ibuprofen 600 mg tablet mg 06/18/23 06/18/23 History Exam Narrative Exam Narrative: General: Patient appears older than stated age, alert and oriented to person, place and possibly time and in no acute distress. She is expressing no difficulty speaking and has no facial asymmetry. HEENT: Normocephalic, eyes with pupils equal and react to light symmetrically, extraocular movement intact and sclera anicteric. Oropharynx with moist mucosa. There is no facial droop with patient having symmetrical smile. Neck: Supple without JVD no auscultated bruits. Back: Slightly kyphotic with no CVA tenderness. Lungs: Clear to auscultation and percussion. Heart: Regular rate and rhythm with no murmurs or gallops appreciated. Breast: Exam deferred. Abdomen: Normal contour, soft and nontender to palpation with no palpable hepatosplenomegaly. Genitalia/rectal: Exam deferred. Extremity: Without clubbing, cyanosis or grossly pitting edema with some nonpitting edema over ankles and feet. Skin changes with loss of hair and slightly slightly atrophic skin without atrophy and without discoloration or ulcers. Neuro: Cranial nerves II through XII grossly intact, no facial droop. Patient does have slight hesitancy in speech at times but no true expressive aphasia or receptive aphasia. No focal motor deficits. No tremor. No Babinski and DTRs prosodic and symmetrical. Psych: Slightly euphoric affect and mood. No abnormal thought processes. Remote memory intact and recent memory mostly intact. Results Imaging Imaging Studies: Exam: CTA Head With Contrast, Arteriography Exam date and time: 11/16/2022 7:59 PM Age: 72 years old Clinical indication: Stroke-like symptoms; Speech disturbance; Additional info: Concern for large vessel occlusion TECHNIQUE: Imaging protocol: Computed tomographic angiography of the head with contrast. Exam focused on the arteries. 3D rendering (Not supervised by radiologist): MIP and/or 3D reconstructed images were created by the technologist. Radiation optimization: All CT scans at this facility use at least one of these dose optimization techniques: automated exposure control; mA and/or kV adjustment per patient size (includes targeted exams where dose is matched to clinical indication); or iterative reconstruction. Contrast material: OMNIPAQUE 350; Contrast volume: 85 ml; Contrast route: INTRAVENOUS (IV);? COMPARISON: CT HEAD - STROKE PROTOCOL 11/16/2022 7:12 PM FINDINGS: ANTERIOR CIRCULATION: Right internal carotid artery: Intracranial segment is patent with no significant stenosis. No aneurysm. Right middle cerebral artery: No occlusion.? Question irregularities versus stenosis in the distal M1 segment No aneurysm.? Right anterior cerebral artery: No occlusion or significant stenosis. No aneurysm.? Left internal carotid artery: Intracranial segment is patent with no significant stenosis. No aneurysm. Left middle cerebral artery: No occlusion or significant stenosis. No aneurysm. ? Left anterior cerebral artery: No occlusion or significant stenosis. No aneurysm.? POSTERIOR CIRCULATION: Right vertebral artery: No occlusion or significant stenosis. No aneurysm.? Left vertebral artery:? Diminutive and terminates in PICA.? Basilar artery: No occlusion.? Question stenosis in the mid segment No aneurysm. Right posterior cerebral artery: origin with hypoplasia of the P1 segment, a normal variation No occlusion or significant stenosis. No aneurysm.? Left posterior cerebral artery: origin with hypoplasia of the P1 segment, a normal variation No occlusion or significant stenosis. No aneurysm.? IMPRESSION: No large vessel occlusion. Question stenoses versus luminal irregularities in the distal right M1 segment Question stenosis in the mid basilar artery PROCEDURE INFORMATION: Exam: CTA Neck With Contrast Exam date and time: 11/16/2022 7:59 PM Age: 72 years old Clinical indication: Stroke-like symptoms; Speech disturbance; Additional info: Concern for large vessel occlusion TECHNIQUE: Imaging protocol: Computed tomographic angiography of the neck with contrast. 3D rendering (Not supervised by radiologist): MIP and/or 3D reconstructed images were created by the technologist. Radiation optimization: All CT scans at this facility use at least one of these dose optimization techniques: automated exposure control; mA and/or kV adjustment per patient size (includes targeted exams where dose is matched to clinical indication); or iterative reconstruction. Contrast material: OMNIPAQIE 350; Contrast volume: 85 ml; Contrast route: INTRAVENOUS (IV);? COMPARISON: CTA BRAIN AND NECK 11/19/2015 2:30 PM FINDINGS: Right common carotid artery: No stenosis. No dissection or occlusion. Right internal carotid artery calcified plaque at the bulb with moderate stenosis. No dissection or occlusion. Right external carotid artery: No occlusion or stenosis of the origin.? Left common carotid artery:? Calcified plaque at the bulb with mild stenosis. No dissection or occlusion. Left internal carotid artery: No stenosis of the extracranial segment. No dissection or occlusion. Left external carotid artery: No occlusion or stenosis of the origin.? Right vertebral artery: No stenosis. No dissection or occlusion. Left vertebral artery:? Calcification at the origin with severe stenosis. No dissection or occlusion. Soft tissues: No significant soft tissue swelling. Bones/joints: No acute fracture. IMPRESSION: Severe short-segment stenosis at the origin of the left vertebral artery Moderate right and mild left carotid stenoses Exam: CT Head Without Contrast Exam date and time: 11/16/2022 7:12 PM Age: 72 years old Clinical indication: Stroke-like symptoms; Other: Concern for CVA TECHNIQUE: Imaging protocol: Computed tomography of the head without contrast. Other technique: STROKE PROTOCOL was implemented. COMPARISON: CTA BRAIN AND NECK 11/19/2015 2:30 PM FINDINGS: Brain:? Basal ganglia calcifications. Chronic right caudate lacunar infarction No hemorrhage.? Mild white matter disease. No mass effect. Cerebral ventricles: No ventriculomegaly. Paranasal sinuses:? Opacification of the visualized right maxillary sinus. Mastoid air cells: Visualized mastoid air cells are well aerated. Bones/joints: Unremarkable. No acute fracture. Soft tissues: Unremarkable. IMPRESSION: No acute intracranial abnormality. Question right maxillary sinusitis Exam: XR Chest Exam date and time: 11/16/2022 7:18 PM Age: 72 years old Clinical indication: Other: Concern for CVA TECHNIQUE: Imaging protocol: Radiologic exam of the chest. Views: 2 views. COMPARISON: CTA BRAIN AND NECK 11/19/2015 2:30 PM FINDINGS: Question tube/line overlying the midline on the frontal projection not clearly visualized on the lateral film. Correlate clinically Lungs: Unremarkable. No consolidation. Pleural spaces: No pleural effusion. No pneumothorax. Heart/Mediastinum:? Moderate aortic tortuosity. No cardiomegaly.? Calcified left paratracheal thyroid nodule as noted on previous CT scan measuring 13-14 mm Bones/joints: Unremarkable. IMPRESSION: No acute findings. Labs 06/19/23 05:48 11/16/22 19:00 Labs: Laboratory Results - last 24 hr 11/16/22 11/16/22 11/16/22 19:00 19:00 19:00 WBC 7.31 RBC 3.95 Hgb 12.5 Hct 36.4 MCV 92 MCH 31.6 MCHC 34.3 RDW 12.9 Plt Count 196 MPV 10.2 Immature Gran % 0.3 Neutrophils % 65.3 Lymphocytes % 22.7 Monocytes % 7.3 Eosinophils % 3.7 Basophils % 0.7 Nucleated RBC % 0.0 Absolute Neutrophils 4.78 Absolute Lymphocytes 1.66 Absolute Monocytes 0.53 Absolute Eosinophils 0.27 Absolute Basophils 0.05 Sodium 145 Potassium 3.4 L Chloride 107 Carbon Dioxide 26.2 Anion Gap 11.8 H BUN 19 H Creatinine 1.1 H Est GFR (CKD-EPI 2020) 52.73 Glucose 116 H Calcium 8.7 Magnesium 2.1 Troponin I < 50 Ethyl Alcohol 11/16/22 19:00 WBC RBC Hgb Hct MCV MCH MCHC RDW Plt Count MPV Immature Gran % Neutrophils % Lymphocytes % Monocytes % Eosinophils % Basophils % Nucleated RBC % Absolute Neutrophils Absolute Lymphocytes Absolute Monocytes Absolute Eosinophils Absolute Basophils Sodium Potassium Chloride Carbon Dioxide Anion Gap BUN Creatinine Est GFR (CKD-EPI 2020) Glucose Calcium Magnesium Troponin I Ethyl Alcohol 15.9 H Last Vital Signs Temp 37.1 C 11/16/22 18:51 Pulse 100 H 11/16/22 18:39 Resp 18 11/16/22 19:14 BP 183/71 H 11/16/22 18:51 Pulse Ox 96 11/16/22 18:39 PAWSS Have you Been Recently Intoxicated or Drunk Within the Last 30 days?: Yes Have you Ever Experienced Previous Episodes of Alcohol Withdrawal?: No Have you ever Experienced Withdrawal Seizures?: No Have you ever Experienced Delirium Tremens(DT)s?: No Have you ever undergone Alcohol Rehabilitation Treatment (i.e, inpt ot outpatient treatment programs)?: No Have you ever Experienced Blackouts?: No Have you ever Combined Alcohol with other Downers within the last 90 days?: No Have you ever Combined Alcohol with any other Substance of Abuse during the last 90 days?: No Positive Blood Alcohol level on Presentation? [PCS.BAL]: No Evidence of Increased Autonomic Activity (i.e. HR>120, tremor, sweating, agitation, nausea)?: No Result: 1 Time Spent Time spent with Patient: >75 minutes Time was spent: preparing to see the patient(eg.review tests), obtaining and/or reviewing separately otained hiistory, ordering medications,tests, procedures, referring, communicating with other health skin care specialist, indepentently interpreting results, counseling the patient and care coordination
--- NOTE | 2022-11-16 21:20 | W.EDPROG ---
Date of service: 11/16/22 Time of Service: 23:00 Medical Decision Making Patient signed out to me with stuttering strokelike symptoms. A CTA head and neck are requested by the hospitalist. This showed severe short segment stenosis at the origin of the left vertebral artery. She has moderate right and mild left carotid stenosis. Dr. Mao was notified and he has seen the CT results. His plan is to give her Plavix and admit her to the floor for additional treatment. Imaging Data Radiologic Study: Imaging: CT Scan Radiologist's impression: See above note in MDM. Sign Out Sign Out Data: Sign Out Comment: Please follow-up CTA to ensure patient does not have large vessel occlusion. If positive please reach out to [facility] neurology. If negative please hospitalize for MRI. Last updated by Ruben Jasmine MD at 11/16/22 20:00 Discharge Plan Disposition Patient Disposition: Admit to [facility] Condition: Stable Discharge Details Clinical Impression: TIA (transient ischemic attack) Admit Date/Time: 11/16/22 21:28 Admit Provider: Star Mao Attending Provider: Star Mao Primary Care Provider: Brook Leon ED Provider: Jeaneth Zacarias
[2022-11-16 22:14] LABS: Troponin I < 50 ng/L (<or=60)
[2022-11-16 22:27] LABS: Source Nasal/Nares
[2022-11-16 23:20] LABS: COVID-19 PCR Negative (Negative)
[2022-11-16] MEDS: Metoprolol 12.5 MG TAB PO (23:37)
[2022-11-16] MEDS: Heparin 5,000 UNITS/ML VIAL 5000 UNITS SC (23:38)
[2022-11-17] VITALS (10 sets, daily range): BP systolic 154–199; BP diastolic 84–102; PULSE 60–88; RESP 16–18; TEMP 36.3–37.2; O2SAT 95–97
[2022-11-17] MEDS: Clopidogrel 300 MG TAB PO (02:24)
[2022-11-17] MEDS: Atorvastatin 40 MG TAB 80 MG PO ×2 (02:25→21:19)
[2022-11-17] MEDS: traMADol 50 MG TAB PO (02:25)
[2022-11-17] MEDS: POTASSIUM CHLORIDE 20 MEQ/100 ML BAG 50 MEQ IVPB (02:26)
[2022-11-17] MEDS: Normal Saline 500 ML 30 ML IV (02:27)
[2022-11-17] MEDS: Heparin 5,000 UNITS/ML VIAL 5000 UNITS SC ×3 (06:44→21:19)
[2022-11-17 06:45] LABS: HCT 38.2 % (36.0-46.0); HGB 12.6 g/dL (11.2-15.7); MCH 30.4 pg (27.0-33.0); MCV 92 fL (80-95); MPV 10.7 fL (8.0-11.0); Platelet Count 201 10^3/uL (130-400); RBC 4.14 10^6/uL (3.93-5.22); RDW 13.1 % (11.7-14.6); RDW-SD 44.2 fL; WBC 7.25 10^3/uL (4.4-10.8)
[2022-11-17 07:06] LABS: ALT 123 U/L (14-59); AST 60 U/L (15-37); Albumin 3.5 g/dL (3.4-5.0); Alkaline Phosphatase 80 U/L (46-116); Anion Gap 8.3 mmol/L (3-11); BUN 17 mg/dL (7-18); Bilirubin, Total 0.7 mg/dL (0.2-1.0); CO2 25.7 mmol/L (21.0-32.0); Calcium 8.8 mg/dL (8.5-10.1); Chloride 109 mmol/L (98-107); Estimated GFR 59.12 (mL/min/1.73m2); Glucose 105 mg/dL (74-106); Magnesium 2.1 mg/dL (1.8-2.4); Potassium 4.4 mmol/L (3.5-5.1); Sodium 143 mmol/L (136-145); Total Protein 6.6 g/dL (6.4-8.2)
[2022-11-17 07:06] LABS: PHOSPHORUS 3.2 mg/dL (2.6-4.7)
[2022-11-17 07:15] LABS: TSH (W/Ref FT4) 1.64 uIU/mL (0.36-3.74)
--- NOTE | 2022-11-17 08:00 | DI.MRI_ITS ---
Exam(s) MR BRAIN WO EXAM: MR BRAIN WO CLINICAL HISTORY: TIA TECHNIQUE: Multiplanar multisequence MRI of the brain was performed. COMPARISON: CT CT BRAIN NECK CTA from 11/16/[address] HEAD - STROKE PROTOCOL from 11/16/2022 FINDINGS: VENTRICLES AND EXTRA AXIAL SPACES: Normal in size and morphology for the patient's age. MIDLINE SHIFT: None. CEREBRAL PARENCHYMA: There are several tiny foci of restricted diffusion seen in the left insula and morelos radiata. Scattered foci of white matter without restricted diffusion seen bilaterally consist ent with chronic microvascular changes. No space-occupying lesion identified. HEMORRHAGE: None. BRAINSTEM/CEREBELLUM: Normal. VISUALIZED PARANASAL SINUSES/MASTOIDS:Opacification of right maxillary sinus. Vasculature: Normal flow void. PITUITARY GLAND: Unremarkable. ORBITS: Unremarkable. IMPRESSION: Several small foci of restricted diffusion in the left insula and coronary data, consistent with acut e lacunar infarcts.. DATA REPOSITORY:
--- NOTE | 2022-11-17 08:00 | DI.US_ITS ---
APPROVED REPORT EXAM: Comprehensive 2D, Doppler, and color-flow Echocardiogram Patient Location: In-Patient Room/Bed: [facility] [employer] Hand: Stacy Alcocer RDCS (AE) Indications: TIA, HTN, AFIB Echo Enhancing Agent Indication: Rule out Shunt Agent(s) / Amount(s) Used: Agitated Saline 30.0 cc Comments: Contrast study was performed with 3 IV injections of 10ccs of agitated normal saline, at re st, with cough and post valsalva maneuver. Negative contrast study for shunt flow. Other Information Study Quality: Adequate Conclusion Normal left ventricular wall thickness and chamber size. Ejection fraction is 55-60 %. Wall motion is normal Normal right ventricular size and systolic function Left atrium is mildly dilated. Right atrium is mildly dilated Aortic valve is sclerotic without stenosis or regurgitation Mitral annular calcification, trace mitral regurgitation Normal tricuspid valve with trace regurgitation. Estimated right ventricular systolic pressure is 24 mmHg Elevated ascending aorta measuring 4.01 cm Wall motion Left Ventricle The left ventricle is normal size. The left ventricular systolic function is normal. The left ventric ular ejection fraction is within the normal range. There is normal left ventricular wall thickness. T here is normal LV segmental wall motion. There is no ventricular septal defect visualized. LVEF is 55 -60%. Right Ventricle The right ventricle is normal size. The right ventricular systolic function is normal. The RVSP is 24 .3 mmHg. Atria Left atrium is mildly dilated. Right atrium is mildly dilated. The interatrial septum is intact with no evidence for an atrial septal defect. Saline bubble contrast intravenous injection does not demons trate PFO. Aortic Valve The Aortic valve is sclerotic. There is no aortic valvular stenosis. No aortic regurgitation is prese nt. Mitral Valve Moderate mitral annular calcification. No evidence of mitral valve stenosis. Trace mitral regurgitati on. Tricuspid Valve The tricuspid valve is normal in structure. There is no tricuspid valve stenosis. Trace tricuspid reg urgitation. Pulmonic Valve The pulmonary valve is normal in structure. There is no pulmonic valvular stenosis. Trace pulmonic re gurgitation. Great Vessels The aortic root is normal in size. The ascending aorta is moderately dilated. Aortic arch is normal i n caliber. IVC is normal in size and collapses >50% with inspiration. Pericardium There is no pericardial effusion. 2D Dimensions IVSD d PLAX 0.87 cm F: 0.6-1.0 LV Vol A2C d MOD 63.4 mL LVPW d PLAX 0.83 cm F: 0.6 - 1.0 LV Vol A4C d MOD 81.5 mL LVID d PLAX 4.47 cm F: 3.8 - 5.2 LA vol/ BSA A2C s A-L 41.4 mL/m2 LVDs 3.15 cm F: 2.2 - 3.5 LA vol/ BSA A4C s A-L 31.9 mL/m2 Ao Root d 3.19 cm F: 2.7 - 3.3 LA Vol/ BSA Biplane s A-L 37.3 mL/m2 RA Area A4C 8.90 cm2 LA Area A4C s MOD 19.24 cm2 RA Vol/ BSA A4C s A-L 10.0 mL/m2 LA Area A2C s MOD 22.54 cm2 Ao Asc Diam d 4.01 cm F: 2.3 - 3.1 LV EF A4C MOD 55.2 % LV EF Teichholz 56.4 % LV EF A2C MOD 60.4 % LVEF (Campos's) 60.12 % F: 54 - 74 LV EF Biplane MOD 60.1 % LV Volume 61.58 mL F: 46 - 106 SV 46.59 mL LV Volume Index 36.22 mL/m2 F: 29 - 61 SV Index 27.46 mL/m2 LV Vol Biplane MOD 77.5 mL FS 29.30 % M-Mode TAPSE 2.22 cm (M/F) >1.7 LV Diastology MV E' medial 0.073 (>0.07 m/s) E/A Ratio 0.7 LV E/e MED 12.85 (<14) MV E Vmax 0.95 (0.4-1.3 m/s) MV E' lateral 0.057 (>0.1 m/s) MV A Vmax 1.40 (0.4-1.3 m/s) LV E/e LAT 16.45 (<14) MV E/A Ratio 0.66 MV E/E' medial 12.89 MV E/E' lateral 16.45 Aortic Valve LVOT Area 3.22 cm2 AoV Area Vmax 2.04 cm2 LVOT Vmax 1.08 m/s AoV Area/ BSA (Vmax) 1.20 cm2/m2 LVOT Mean Geoff. 0.71 m/s FRANKO Mean Geoff. 2.13 cm2 LVOT Peak Grad 4.6 mmHg FRANKO Mean Geoff. Index 1.26 cm2/m2 LVOT Mean Grad 2.3 mmHg LVOT VTI 0.206 m LVOT Diam s 2.00 cm AoV Vmax 1.70 m/s Velocity Ratio 0.64 AoV Mean Geoff. 1.07 m/s AoV Peak Grad 11.6 mmHg LVOT SV 66.31 mL AoV Mean Grad 5.3 mmHg AoV VTI 0.314 m AoV Area VTI 2.11 cm2 AoV Area/ BSA (VTI) 1.24 cm/m2 Mitral Valve MV DT 362 (160-240 msec) MV PHT 105 msec MV Area PHT 2.10 cm2 MV VTI 0.427 m MV Area VTI 1.55 (4.0-6.0 cm2) Pulmonary Valve PV Vmax 0.99 (0.5-1.5 m/s) RVOT Peak Gr. 2.23 mmHg PV Peak Grad 4.0 mmHg RVOT Mean Gr. 1.05 mmHg PV Mean Grad 2.1 mmHg RVOT VTI 0.149 m PV VTI 0.193 m RVOT Vmax 0.75 m/s Tricuspid Valve TR Peak Grad 21.3 mmHg TR Vmax 2.31 m/s RA Pressure 3.00 mmHg RVSP (TR) 24.3 mmHg
[2022-11-17] MEDS: Folic Acid 1 MG TAB PO (08:16)
[2022-11-17] MEDS: Aspirin E.C. 81 MG TABEC PO (08:16)
[2022-11-17] MEDS: Clopidogrel 75 MG TAB PO (08:16)
[2022-11-17] MEDS: Multivitamin TAB 1 TAB PO (08:16)
[2022-11-17] MEDS: Omega-3 Fatty Acids 1000 MG CAP PO (08:16)
[2022-11-17 09:20] LABS: Lab Add On Test DONE
[2022-11-17 09:53] LABS: Bilirubin Negative (Negative); Blood Moderate (Negative); Clarity Sl Cloudy (Clear); Glucose Negative (Negative); Ketones Negative (Negative); Leukocyte Esterase Large (Negative); Nitrite Negative (Negative); Specific Gravity 1.015 (1.005-1.025); Urobilinogen 0.2 mg/dL (Up to 0.2)
[2022-11-17 09:53] LABS: Hemoglobin A1C 5.5 % (<5.7)
[2022-11-17 10:00] LABS: Bacteria Few HPF (Negative); C & S Indicated? Yes; Casts Negative LPF (Negative); Crystals Negative HPF (Negative); Epithelial Cells Few HPF (Negative); Mucus Negative (Negative); WBC 20-50 HPF (0-5)
--- NOTE | 2022-11-17 10:10 | PDOC.CMIN ---
Date of service: 11/17/22 Time of Service: 10:10 Care Management Initial Assmt Initial Assessment REASON FOR HOSPITALIZATION:: TIA PREVIOUS FUNCTIONAL STATUS/SOCIAL/FAMILY SUPPORTS:: Presented to [facility] with stuttering strokelike symptoms. 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 She has moderate right and mild left carotid stenosis. Dr. Mao ordered Plavix and admitted her to the floor for additional treatment. Resent orthopedic surgery; L TKA ADVANCE DIRECTIVES:: None on file-has document to work on at home CODE STATUS:: Full Code INSURANCE COVERAGE / FINANCIAL ISSUES:: Medicare Medicaid CURRENT HOME/COMMUNITY SERVICES/EQUIPMENT:: [facility] PRIMARY CARE PHYSICIAN:: [place] POTENTIAL DISCHARGE NEEDS:: Follow up appointments, new medications PATIENT/FAMILY EDUCATION NEEDS:: Review discharge instructions, discuss ANTICIPATED BARRIERS TO DISCHARGE:: Anticipate possible new anticoagulants TRANSPORTATION:: Private vehicle with family. PLAN:: Anticipate Marline will return home when ready per MD. She will follow up with her PCP and plan of care as prescribed. CM continues to follow. PFSH All Active Problems Daily consumption of alcohol (Chronic) Hypokalemia (Acute) Carotid stenosis, bilateral (Chronic) TIA (transient ischemic attack) (Acute) Hyperplastic colon polyp (Acute ~08/25/22) Chronic kidney disease (Chronic) Screening for colon cancer (Acute) Neoplasm of unspecified behavior of bone, soft tissue, and skin (Acute) Tendinitis of long head of biceps brachii of right shoulder (Acute) History of total left knee replacement (Acute 03/12/21) DOS 03/12/21 Arthrofibrosis of total knee replacement (Acute) LEFT S/P arthroscopy and HAFSA: 02/05/2022 Medical History Actinic keratoses Arm pain, right Bilateral carotid bruits Facial twitching Family hx of colon cancer Hair loss Hand eczema Hx of adenomatous colonic polyps Hyperlipidemia Hypertension Knee pain, left Menopause Objective pulsatile tinnitus Osteoarthritis Pain, joint, shoulder, right Varicose veins of left lower extremity Surgical History Colonoscopy - MAC (08/10/17) History of colonoscopy with polypectomy (~08/25/22) Hx of cataract extraction Family History Mother Colon cancer Social History Smoking/Tobacco Use Status: Never Smoking risk assessment performed?: Yes Alcohol Intake: current Alcohol Intake frequency: 3 or more drinks per day Alcohol type: hard liquor Drug use: Never Substance use type: does not use Do you feel safe at home: Yes Do you feel safe in your relationship?: Yes
[2022-11-17] MEDS: THIAMINE 500 MG in Normal Saline 100 ML 200 MG IVPB ×2 (11:35→18:49)
[2022-11-17 13:05] LABS: *AMPHETAMINES SCREEN URINE Negative (Negative); *BARBITURATES SCREEN URINE Negative (Negative); *BENZODIAZEPINES SCREEN URINE Negative (Negative); Cannabinoids THC Negative (Negative); Cocaine Screen,Urine Negative (Negative); METHADONE URINE SCREEN Negative (Negative); OPIATES URINE SCREEN Negative (Negative)
[2022-11-17 13:09] LABS: Tricyclic Antidepressants Negative (Negative)
--- NOTE | 2022-11-17 14:35 | PGE_ITS ---
Date of Service Date of service: 11/17/22 Time of Service: 14:36 Assessment and Plan Assessment and plan (1) TIA (transient ischemic attack): Status: Acute Assessment and plan: waiting MRI symptoms improved but not back to baseline neurology consult pending (2) Hyperlipidemia: Assessment and plan: Replace pravastatin with high-dose Lipitor as patient's further evaluation. (3) Hypertension: Assessment and plan: permissive hypertension with lisinopril in the morning with metoprolol p.o. to be reinitiated if needed. sbp goal 140-180 (4) Hypokalemia: Status: Acute Assessment and plan: Patient does have daily alcohol use and she will be repleted with IV potassium. Long-term she should do better with no alcohol and better diet with potassium foods. (5) Carotid stenosis, bilateral: Status: Chronic Assessment and plan: Mild to moderate stenosis with the patient on aspirin and Plavix added. pending consult with neurology. outpatient Vascular surgery consultation discussed with DR Aguilera Subjective Subjective Patient reports: no new complaints, feels better, tolerating liquids well, tolerating a regular diet and afebrile; denies shortness of breath Objective Last Vital Signs Temp 36.5 C 11/17/22 12:01 Pulse 68 11/17/22 12:01 Resp 18 11/17/22 12:01 BP 177/96 H 11/17/22 12:01 Pulse Ox 96 11/17/22 12:01 Laboratory Results - last 24 hr 11/16/22 11/16/22 11/16/22 19:00 19:00 19:00 WBC 7.31 RBC 3.95 Hgb 12.5 Hct 36.4 MCV 92 MCH 31.6 MCHC 34.3 RDW 12.9 Plt Count 196 MPV 10.2 Immature Gran % 0.3 Neutrophils % 65.3 Lymphocytes % 22.7 Monocytes % 7.3 Eosinophils % 3.7 Basophils % 0.7 Nucleated RBC % 0.0 Absolute Neutrophils 4.78 Absolute Lymphocytes 1.66 Absolute Monocytes 0.53 Absolute Eosinophils 0.27 Absolute Basophils 0.05 Sodium 145 Potassium 3.4 L Chloride 107 Carbon Dioxide 26.2 Anion Gap 11.8 H BUN 19 H Creatinine 1.1 H Est GFR (CKD-EPI 2020) 52.73 Glucose 116 H Hemoglobin A1c Calcium 8.7 Phosphorus Magnesium 2.1 Total Bilirubin AST ALT Alkaline Phosphatase Troponin I < 50 Total Protein Albumin TSH Urine Color Urine Clarity Urine pH Ur Specific [place] Urine Protein Urine Ketones Urine Blood Urine Nitrite Urine Bilirubin Urine Urobilinogen Ur Leukocyte Esterase Urine RBC Urine WBC Ur Epithelial Cells Urine Crystals Urine Bacteria Urine Casts Urine Mucus Ur Culture Indicated? Urine Glucose Urine Opiates Screen Urine Methadone Screen Ur Barbiturates Screen Ur Tricyclics Screen Ur Amphetamines Screen U Benzodiazepines Scrn Urine Cocaine Screen Ur THC Screen Ethyl Alcohol COVID-19 Source SARS-CoV-2 (PCR) Add-On Test Request 11/16/22 11/16/22 11/16/22 19:00 21:43 22:22 WBC RBC Hgb Hct MCV MCH MCHC RDW Plt Count MPV Immature Gran % Neutrophils % Lymphocytes % Monocytes % Eosinophils % Basophils % Nucleated RBC % Absolute Neutrophils Absolute Lymphocytes Absolute Monocytes Absolute Eosinophils Absolute Basophils Sodium Potassium Chloride Carbon Dioxide Anion Gap BUN Creatinine Est GFR (CKD-EPI 2020) Glucose Hemoglobin A1c Calcium Phosphorus Magnesium Total Bilirubin AST ALT Alkaline Phosphatase Troponin I < 50 Total Protein Albumin TSH Urine Color Urine Clarity Urine pH Ur Specific [place] Urine Protein Urine Ketones Urine Blood Urine Nitrite Urine Bilirubin Urine Urobilinogen Ur Leukocyte Esterase Urine RBC Urine WBC Ur Epithelial Cells Urine Crystals Urine Bacteria Urine Casts Urine Mucus Ur Culture Indicated? Urine Glucose Urine Opiates Screen Urine Methadone Screen Ur Barbiturates Screen Ur Tricyclics Screen Ur Amphetamines Screen U Benzodiazepines Scrn Urine Cocaine Screen Ur THC Screen Ethyl Alcohol 15.9 H COVID-19 Source Nasal/Nares SARS-CoV-2 (PCR) Negative Add-On Test Request 11/17/22 11/17/22 11/17/22 05:45 05:45 05:48 WBC RBC Hgb Hct MCV MCH MCHC RDW Plt Count MPV Immature Gran % Neutrophils % Lymphocytes % Monocytes % Eosinophils % Basophils % Nucleated RBC % Absolute Neutrophils Absolute Lymphocytes Absolute Monocytes Absolute Eosinophils Absolute Basophils Sodium 143 Potassium 4.4 D Chloride 109 H Carbon Dioxide 25.7 Anion Gap 8.3 BUN 17 Creatinine 1.0 Est GFR (CKD-EPI 2020) 59.12 Glucose 105 Hemoglobin A1c Calcium 8.8 Phosphorus 3.2 Magnesium 2.1 Total Bilirubin 0.7 AST 60 H ALT 123 H Alkaline Phosphatase 80 Troponin I Total Protein 6.6 Albumin 3.5 TSH 1.64 Urine Color Urine Clarity Urine pH Ur Specific [place] Urine Protein Urine Ketones Urine Blood Urine Nitrite Urine Bilirubin Urine Urobilinogen Ur Leukocyte Esterase Urine RBC Urine WBC Ur Epithelial Cells Urine Crystals Urine Bacteria Urine Casts Urine Mucus Ur Culture Indicated? Urine Glucose Urine Opiates Screen Urine Methadone Screen Ur Barbiturates Screen Ur Tricyclics Screen Ur Amphetamines Screen U Benzodiazepines Scrn Urine Cocaine Screen Ur THC Screen Ethyl Alcohol COVID-19 Source SARS-CoV-2 (PCR) Add-On Test Request 11/17/22 11/17/22 11/17/22 05:48 05:48 05:48 WBC 7.25 RBC 4.14 Hgb 12.6 Hct 38.2 MCV 92 MCH 30.4 MCHC 33.0 RDW 13.1 Plt Count 201 MPV 10.7 Immature Gran % Neutrophils % Lymphocytes % Monocytes % Eosinophils % Basophils % Nucleated RBC % Absolute Neutrophils Absolute Lymphocytes Absolute Monocytes Absolute Eosinophils Absolute Basophils Sodium Potassium Chloride Carbon Dioxide Anion Gap BUN Creatinine Est GFR (CKD-EPI 2020) Glucose Hemoglobin A1c 5.5 Calcium Phosphorus Magnesium Total Bilirubin AST ALT Alkaline Phosphatase Troponin I Total Protein Albumin TSH Urine Color Urine Clarity Urine pH Ur Specific [place] Urine Protein Urine Ketones Urine Blood Urine Nitrite Urine Bilirubin Urine Urobilinogen Ur Leukocyte Esterase Urine RBC Urine WBC Ur Epithelial Cells Urine Crystals Urine Bacteria Urine Casts Urine Mucus Ur Culture Indicated? Urine Glucose Urine Opiates Screen Urine Methadone Screen Ur Barbiturates Screen Ur Tricyclics Screen Ur Amphetamines Screen U Benzodiazepines Scrn Urine Cocaine Screen Ur THC Screen Ethyl Alcohol COVID-19 Source SARS-CoV-2 (PCR) Add-On Test Request DONE 11/17/22 11/17/22 09:30 11:43 WBC RBC Hgb Hct MCV MCH MCHC RDW Plt Count MPV Immature Gran % Neutrophils % Lymphocytes % Monocytes % Eosinophils % Basophils % Nucleated RBC % Absolute Neutrophils Absolute Lymphocytes Absolute Monocytes Absolute Eosinophils Absolute Basophils Sodium Potassium Chloride Carbon Dioxide Anion Gap BUN Creatinine Est GFR (CKD-EPI 2020) Glucose Hemoglobin A1c Calcium Phosphorus Magnesium Total Bilirubin AST ALT Alkaline Phosphatase Troponin I Total Protein Albumin TSH Urine Color Yellow Urine Clarity Sl Cloudy Urine pH 7.0 Ur Specific [place] 1.015 Urine Protein Negative Urine Ketones Negative Urine Blood Moderate H Urine Nitrite Negative Urine Bilirubin Negative Urine Urobilinogen 0.2 Ur Leukocyte Esterase Large H Urine RBC 10-20 H Urine WBC 20-50 H Ur Epithelial Cells Few Urine Crystals Negative Urine Bacteria Few Urine Casts Negative Urine Mucus Negative Ur Culture Indicated? Yes Urine Glucose Negative Urine Opiates Screen Negative Urine Methadone Screen Negative Ur Barbiturates Screen Negative Ur Tricyclics Screen Negative Ur Amphetamines Screen Negative U Benzodiazepines Scrn Negative Urine Cocaine Screen Negative Ur THC Screen Negative Ethyl Alcohol COVID-19 Source SARS-CoV-2 (PCR) Add-On Test Request PAWSS Have you Been Recently Intoxicated or Drunk Within the Last 30 days?: Yes Have you Ever Experienced Previous Episodes of Alcohol Withdrawal?: No Have you ever Experienced Withdrawal Seizures?: No Have you ever Experienced Delirium Tremens(DT)s?: No Have you ever undergone Alcohol Rehabilitation Treatment (i.e, inpt ot outpatient treatment programs)?: No Have you ever Experienced Blackouts?: No Have you ever Combined Alcohol with other Downers within the last 90 days?: No Have you ever Combined Alcohol with any other Substance of Abuse during the last 90 days?: No Positive Blood Alcohol level on Presentation? [PCS.BAL]: No Evidence of Increased Autonomic Activity (i.e. HR>120, tremor, sweating, agitation, nausea)?: No Result: 1
--- NOTE | 2022-11-17 16:00 | PGE_ITS ---
Date of Service Date of service: 11/17/22 Time of Service: 16:00 Assessment and Plan Assessment and plan (1) TIA (transient ischemic attack): Status: Acute Assessment and plan: awaiting MRI and echo. continue high dose statin, asa and plavix (2) Hyperlipidemia: Assessment and plan: Replace pravastatin with high-dose Lipitor as patient's further evaluation. (3) Hypertension: Assessment and plan: allow for permissive htn goal 140-180. (4) Hypokalemia: Status: Acute Assessment and plan: replete and follow. mag level 2.1 (5) Carotid stenosis, bilateral: Status: Deleted Assessment and plan: aspirin and Plavix initiated. outpatient vascular surgery consultation (6) Daily consumption of alcohol: Status: Chronic Assessment and plan: monitor for withdrawal no history of. discussed with DR Chaudhari Subjective Subjective Patient reports: no new complaints, tolerating liquids well, tolerating a regular diet, voiding w/o difficulty and afebrile; denies shortness of breath Exam Const General: cooperative, comfortable and no acute distress Nutritional Appearance: average body habitus Orientation: alert, awake and oriented x3 HENMT Head: normal to inspection, normocephalic and atraumatic Face and sinus: face asymmetric (Slight droop on left) Mouth: oral mucosae normal and tongue normal Chest Chest: normal inspection of the chest Resp Effort & Inspection: normal respiratory effort Cardio Rate: regular rate Rhythm: regular rhythm GI Inspection: normal to inspection Palpation: soft Skin General skin exam: no rashes or lesions noted Neuro General: patient alert, patient awake and patient oriented x3 Cognition: normal cognition Speech: abnormal speech slurred Motor: muscle tone normal throughout Extrem General: normal to inspection and full ROM Psych Mental Status: mental status grossly normal Speech and Movement: speech and movement normal Mood: congruent mood Affect: normal affect Objective Last Vital Signs Temp 36.7 C 11/17/22 15:28 Pulse 66 11/17/22 15:28 Resp 18 11/17/22 15:28 BP 168/98 H 11/17/22 15:28 Pulse Ox 95 11/17/22 15:28 Laboratory Results - last 24 hr 11/16/22 11/16/22 11/16/22 19:00 19:00 19:00 WBC 7.31 RBC 3.95 Hgb 12.5 Hct 36.4 MCV 92 MCH 31.6 MCHC 34.3 RDW 12.9 Plt Count 196 MPV 10.2 Immature Gran % 0.3 Neutrophils % 65.3 Lymphocytes % 22.7 Monocytes % 7.3 Eosinophils % 3.7 Basophils % 0.7 Nucleated RBC % 0.0 Absolute Neutrophils 4.78 Absolute Lymphocytes 1.66 Absolute Monocytes 0.53 Absolute Eosinophils 0.27 Absolute Basophils 0.05 Sodium 145 Potassium 3.4 L Chloride 107 Carbon Dioxide 26.2 Anion Gap 11.8 H BUN 19 H Creatinine 1.1 H Est GFR (CKD-EPI 2020) 52.73 Glucose 116 H Hemoglobin A1c Calcium 8.7 Phosphorus Magnesium 2.1 Total Bilirubin AST ALT Alkaline Phosphatase Troponin I < 50 Total Protein Albumin TSH Urine Color Urine Clarity Urine pH Ur Specific [place] Urine Protein Urine Ketones Urine Blood Urine Nitrite Urine Bilirubin Urine Urobilinogen Ur Leukocyte Esterase Urine RBC Urine WBC Ur Epithelial Cells Urine Crystals Urine Bacteria Urine Casts Urine Mucus Ur Culture Indicated? Urine Glucose Urine Opiates Screen Urine Methadone Screen Ur Barbiturates Screen Ur Tricyclics Screen Ur Amphetamines Screen U Benzodiazepines Scrn Urine Cocaine Screen Ur THC Screen Ethyl Alcohol COVID-19 Source SARS-CoV-2 (PCR) Add-On Test Request 11/16/22 11/16/22 11/16/22 19:00 21:43 22:22 WBC RBC Hgb Hct MCV MCH MCHC RDW Plt Count MPV Immature Gran % Neutrophils % Lymphocytes % Monocytes % Eosinophils % Basophils % Nucleated RBC % Absolute Neutrophils Absolute Lymphocytes Absolute Monocytes Absolute Eosinophils Absolute Basophils Sodium Potassium Chloride Carbon Dioxide Anion Gap BUN Creatinine Est GFR (CKD-EPI 2020) Glucose Hemoglobin A1c Calcium Phosphorus Magnesium Total Bilirubin AST ALT Alkaline Phosphatase Troponin I < 50 Total Protein Albumin TSH Urine Color Urine Clarity Urine pH Ur Specific [place] Urine Protein Urine Ketones Urine Blood Urine Nitrite Urine Bilirubin Urine Urobilinogen Ur Leukocyte Esterase Urine RBC Urine WBC Ur Epithelial Cells Urine Crystals Urine Bacteria Urine Casts Urine Mucus Ur Culture Indicated? Urine Glucose Urine Opiates Screen Urine Methadone Screen Ur Barbiturates Screen Ur Tricyclics Screen Ur Amphetamines Screen U Benzodiazepines Scrn Urine Cocaine Screen Ur THC Screen Ethyl Alcohol 15.9 H COVID-19 Source Nasal/Nares SARS-CoV-2 (PCR) Negative Add-On Test Request 11/17/22 11/17/22 11/17/22 05:45 05:45 05:48 WBC RBC Hgb Hct MCV MCH MCHC RDW Plt Count MPV Immature Gran % Neutrophils % Lymphocytes % Monocytes % Eosinophils % Basophils % Nucleated RBC % Absolute Neutrophils Absolute Lymphocytes Absolute Monocytes Absolute Eosinophils Absolute Basophils Sodium 143 Potassium 4.4 D Chloride 109 H Carbon Dioxide 25.7 Anion Gap 8.3 BUN 17 Creatinine 1.0 Est GFR (CKD-EPI 2020) 59.12 Glucose 105 Hemoglobin A1c Calcium 8.8 Phosphorus 3.2 Magnesium 2.1 Total Bilirubin 0.7 AST 60 H ALT 123 H Alkaline Phosphatase 80 Troponin I Total Protein 6.6 Albumin 3.5 TSH 1.64 Urine Color Urine Clarity Urine pH Ur Specific [place] Urine Protein Urine Ketones Urine Blood Urine Nitrite Urine Bilirubin Urine Urobilinogen Ur Leukocyte Esterase Urine RBC Urine WBC Ur Epithelial Cells Urine Crystals Urine Bacteria Urine Casts Urine Mucus Ur Culture Indicated? Urine Glucose Urine Opiates Screen Urine Methadone Screen Ur Barbiturates Screen Ur Tricyclics Screen Ur Amphetamines Screen U Benzodiazepines Scrn Urine Cocaine Screen Ur THC Screen Ethyl Alcohol COVID-19 Source SARS-CoV-2 (PCR) Add-On Test Request 11/17/22 11/17/22 11/17/22 05:48 05:48 05:48 WBC 7.25 RBC 4.14 Hgb 12.6 Hct 38.2 MCV 92 MCH 30.4 MCHC 33.0 RDW 13.1 Plt Count 201 MPV 10.7 Immature Gran % Neutrophils % Lymphocytes % Monocytes % Eosinophils % Basophils % Nucleated RBC % Absolute Neutrophils Absolute Lymphocytes Absolute Monocytes Absolute Eosinophils Absolute Basophils Sodium Potassium Chloride Carbon Dioxide Anion Gap BUN Creatinine Est GFR (CKD-EPI 2020) Glucose Hemoglobin A1c 5.5 Calcium Phosphorus Magnesium Total Bilirubin AST ALT Alkaline Phosphatase Troponin I Total Protein Albumin TSH Urine Color Urine Clarity Urine pH Ur Specific [place] Urine Protein Urine Ketones Urine Blood Urine Nitrite Urine Bilirubin Urine Urobilinogen Ur Leukocyte Esterase Urine RBC Urine WBC Ur Epithelial Cells Urine Crystals Urine Bacteria Urine Casts Urine Mucus Ur Culture Indicated? Urine Glucose Urine Opiates Screen Urine Methadone Screen Ur Barbiturates Screen Ur Tricyclics Screen Ur Amphetamines Screen U Benzodiazepines Scrn Urine Cocaine Screen Ur THC Screen Ethyl Alcohol COVID-19 Source SARS-CoV-2 (PCR) Add-On Test Request DONE 11/17/22 11/17/22 09:30 11:43 WBC RBC Hgb Hct MCV MCH MCHC RDW Plt Count MPV Immature Gran % Neutrophils % Lymphocytes % Monocytes % Eosinophils % Basophils % Nucleated RBC % Absolute Neutrophils Absolute Lymphocytes Absolute Monocytes Absolute Eosinophils Absolute Basophils Sodium Potassium Chloride Carbon Dioxide Anion Gap BUN Creatinine Est GFR (CKD-EPI 2020) Glucose Hemoglobin A1c Calcium Phosphorus Magnesium Total Bilirubin AST ALT Alkaline Phosphatase Troponin I Total Protein Albumin TSH Urine Color Yellow Urine Clarity Sl Cloudy Urine pH 7.0 Ur Specific [place] 1.015 Urine Protein Negative Urine Ketones Negative Urine Blood Moderate H Urine Nitrite Negative Urine Bilirubin Negative Urine Urobilinogen 0.2 Ur Leukocyte Esterase Large H Urine RBC 10-20 H Urine WBC 20-50 H Ur Epithelial Cells Few Urine Crystals Negative Urine Bacteria Few Urine Casts Negative Urine Mucus Negative Ur Culture Indicated? Yes Urine Glucose Negative Urine Opiates Screen Negative Urine Methadone Screen Negative Ur Barbiturates Screen Negative Ur Tricyclics Screen Negative Ur Amphetamines Screen Negative U Benzodiazepines Scrn Negative Urine Cocaine Screen Negative Ur THC Screen Negative Ethyl Alcohol COVID-19 Source SARS-CoV-2 (PCR) Add-On Test Request PAWSS Have you Been Recently Intoxicated or Drunk Within the Last 30 days?: Yes Have you Ever Experienced Previous Episodes of Alcohol Withdrawal?: No Have you ever Experienced Withdrawal Seizures?: No Have you ever Experienced Delirium Tremens(DT)s?: No Have you ever undergone Alcohol Rehabilitation Treatment (i.e, inpt ot outpatient treatment programs)?: No Have you ever Experienced Blackouts?: No Have you ever Combined Alcohol with other Downers within the last 90 days?: No Have you ever Combined Alcohol with any other Substance of Abuse during the last 90 days?: No Positive Blood Alcohol level on Presentation? [PCS.BAL]: No Evidence of Increased Autonomic Activity (i.e. HR>120, tremor, sweating, agitation, nausea)?: No Result: 1 Time Spent with Patient Time Spent with Patient: 35-49 minutes Time was spent: preparing to see the patient(eg.review tests), obtaining and/or reviewing separately otained hiistory, ordering medications,tests, procedures, referring, communicating with other health intensive care ambulance paramedic, indepentently interpreting results and counseling the patient
[2022-11-17 16:31] LABS: Calculated LDL 115 mg/dL (<100); Cholesterol 213 mg/dL (<200); HDL Cholesterol 77 mg/dL (40-60); Triglyceride 108 mg/dL (<150)
--- NOTE | 2022-11-17 17:14 | NCONE_ITS ---
Date of service: 11/17/22 Time of Service: 17:14 Assessment and Plan Assessment and plan (1) Ischemic stroke: Status: Acute (2) Carotid stenosis, right: Status: Acute (3) Occlusion of left vertebral artery: Status: Acute (4) Dysarthria: Status: Acute (5) Dysphagia: Status: Acute Assessment and plan: #1. Ischemic stroke manifested by transient face weakness secondary to stroke in L insula and frontal lobe subcortex. Etiology unknown at this time. ?Small vessel disease. Work-up: -Telemetry with 30 day monitor at discharge -Lipid panel Medications: -aspirin 81mg daily for secondary stroke prevention x30 days -clopidogrel 75mg daily for secondary stroke prevention -atrovastatin 80mg daily for secondary stroke prevention - titrate to goal LDL <70 Other: -Allow permissive hypertension -Move IV out of R arm so as not to inhibit rehabilitation -Physical therapy for leg weakness, gait training -Occupation therapy for R upper extremity weakness, activities of daily living -Speech therapy for speech and swallow #2. Incidental findings of R carotid stenosis and L vertebral stenosis vs occlusion. DAPT as above x 30 days and then clopidogrel 75mg daily thereafter. Statin as above. Goal LDL <70. Goal SBP 120-140. She should follow-up in the neurology clinic for stroke in 6-8 weeks. History of Present Illness History of Present Illness Chief Complaint: stroke Narrative: Handedness: right. HPI: Ms. Bill is a 72 year-old woman with hypertension, hyperlipidemia, CKD, higher than recommended ETOH use. Ms. Bill was admitted 11/16/22 after 5minutes of L face weakness and slurred speech with stuttering symptoms over the rest of the day. She notes residual dysarthria and dysphagia today. I note reduced FMM on the right and subtle right pronator drift. She wasn't aware of any weakness/clumsiness but notes reduced activity in R arm due to IV placement. She has undergone the work-up as below found to have an acute ischemic stroke. tPA was not given due to mild and resolving symptoms. She was on aspirin 81mg and pravastatin 20mg at baseline. She has since been started on DAPT s/p 300mg Plavix load and atorvastatin 80mg daily. There is a report of ?afib, but she notes a history of rapid heart rate for which she was never recommended anticoagulation. Work-up: -CT (11/16/22): No acute findings. Bilateral BG calcifications. I reviewed these images personally and this is my personal interpretation. -CTA head/neck (11/16/22): Complicated R carotid bulb plaque with ?mod R ICA stenosis ~50-70%. <50% L ICA stenosis. ?Distal L vertebral occlusion vs stenosis. Rads also note stenosis vs occlusion at origin of L vertebral artery. I reviewed these images personally and this is my personal interpretation. -Labs (11/16/22): trop x2 neg, TSH 1.64, ETOH 15.9, A1c 5.5 -MRI brain w/o (11/17/22): Acute L insula ischemic stroke with scattered foci of ischemia in the L centrum semiovale. Moderate chronic vascular changes. I reviewed these images personally and this is my personal interpretation. -TTE (11/17/22): EF 55-60%, no wall motion abnormalities. LA mildly dilated; RA too. Review of Systems All systems reviewed & are unremarkable except as noted in HPI and below PFSH All Active Problems Dysphagia (Acute) Dysarthria (Acute) Occlusion of left vertebral artery (Acute) Carotid stenosis, right (Acute) Ischemic stroke (Acute) Daily consumption of alcohol (Chronic) Hypokalemia (Acute) TIA (transient ischemic attack) (Acute) Hyperplastic colon polyp (Acute ~08/25/22) Chronic kidney disease (Chronic) Screening for colon cancer (Acute) Neoplasm of unspecified behavior of bone, soft tissue, and skin (Acute) Tendinitis of long head of biceps brachii of right shoulder (Acute) History of total left knee replacement (Acute 03/12/21) DOS 03/12/21 Arthrofibrosis of total knee replacement (Acute) LEFT S/P arthroscopy and HAFSA: 02/05/2022 Medical History Actinic keratoses Arm pain, right Bilateral carotid bruits Facial twitching Family hx of colon cancer Hair loss Hand eczema Hx of adenomatous colonic polyps Hyperlipidemia Hypertension Knee pain, left Menopause Objective pulsatile tinnitus Osteoarthritis Pain, joint, shoulder, right Varicose veins of left lower extremity Surgical History Colonoscopy - MAC (08/10/17) History of colonoscopy with polypectomy (~08/25/22) Hx of cataract extraction Family History Mother Colon cancer Social History Smoking/Tobacco Use Status: Never Smoking risk assessment performed?: Yes Alcohol Intake: current Alcohol Intake frequency: 3 or more drinks per day Alcohol type: hard liquor Drug use: Never Substance use type: does not use Do you feel safe at home: Yes Do you feel safe in your relationship?: Yes Visit Medication and Allergies Active Medications Generic Name Dose Route Start Last Admin Trade Name Freq PRN Reason Stop Dose Admin Acetaminophen 0 mg 11/16/22 21:27 Acetaminophen 325 Mg Tab PO Q4H PRN PRN Al Hydrox/Mg Hydrox/Simethicone 30 ml 11/16/22 21:27 Mylanta Suspension 30 Ml Cup PO Q2H PRN PRN Aspirin 81 mg 11/17/22 08:30 11/17/22 08:16 Aspirin E.C. 81 Mg Tabec PO 81 mg DAILY TEDDY Administration Atorvastatin Calcium 80 mg 11/17/22 20:00 Atorvastatin 40 Mg Tab PO QPM TEDDY Clopidogrel Bisulfate 75 mg 11/17/22 08:30 11/17/22 08:16 Clopidogrel 75 Mg Tab PO 75 mg DAILY TEDDY Administration Dimethicone/Zinc Oxide 0 gm 11/16/22 21:27 John Protect Cream 142 Gm Tube TP PRN PRN Docusate Sodium 100 mg 11/16/22 21:27 Docusate Sodium 100 Mg Cap PO TID PRN PRN Fish Oil 1,000 mg 11/17/22 08:30 11/17/22 08:16 [place]-3 Fatty Acids 1000 Mg Cap PO 1,000 mg DAILY TEDDY Administration Folic Acid 1 mg 11/17/22 08:30 11/17/22 08:16 Folic Acid 1 Mg Tab PO 11/23/22 08:31 1 mg QAM TEDDY Administration Heparin Sodium (Porcine) 5,000 units 11/17/22 06:00 11/17/22 15:04 Heparin 5,000 Units/Ml Vial SC 5,000 units Q8H TEDDY Administration Sodium Chloride 500 mls @ 0 mls/hr 11/16/22 21:27 11/17/22 07:29 Saline 500ml Bag IV 0 mls/hr PRN PRN Infusion As Directed Thiamine HCl 500 mg/ Sodium 105 mls @ 200 mls/hr 11/17/22 10:00 11/17/22 12:07 Chloride IVPB 11/20/22 02:32 Infused Q8H TEDDY Infusion IV Miscellaneous Supplies 1 each 11/16/22 21:30 Iv Access IV DIRECTED TEDDY Lorazepam 0 mg 11/17/22 00:28 Lorazepam 1 Mg Tab PO/SL DIRECTED PRN Magnesium Hydroxide 30 ml 11/16/22 21:27 Milk Of Magnesia 30 Ml Cup PO DAILY PRN PRN Metoprolol Tartrate 2.5 mg 11/17/22 07:44 Metoprolol 5 Mg/5 Ml Vial IVP Q6H PRN PRN Multivitamins 1 tab 11/17/22 08:30 11/17/22 08:16 Multivitamin Tab PO 11/23/22 08:31 1 tab QAM TEDDY Administration Polyethylene Glycol 17 gm 11/16/22 21:27 Polyethylene Glycol 3350 17 Gm Packet PO DAILY PRN PRN Constipation Sodium Chloride 0 ml 11/16/22 21:27 Normal Saline Flush 10 Ml Syr IVP PRN PRN Tramadol HCl 50 mg 11/17/22 10:45 Tramadol 50 Mg Tab PO Q8H PRN PRN Allergies No Known Allergies Allergy (Verified 10/20/22 14:45) Exam Narrative Exam Narrative: Physical Exam: Gen: Patient of apparent stated age, NAD Head and face: no facial or cranial abnormalities Neck: Supple, no meningismus, no occipital tenderness CV: + S1, S2, RRR, no murmur Resp: CTA B/L Abd: soft, nontender, nondistended Ext: No edema. No clubbing or cyanosis. No bony deformity. Neuro Exam: Language: fluency, naming, repetition, and comprehension intact; Mental Status: AAOx3, current events and fund of knowledge somewhat intact; Speech: mild dysarthria Cranial nerves: CN II: visual perez intact CN III, IV, : extraocular movements intact, no nystagmus, pupils symmetric and reactive to light CN V: face sensation intact to LT and PP CN VII: subtle lower R face weakness with movement only CN VIII: hearing intact bilaterally CN IX, X: palate rises symmetrically CN XI: trapezius/SCM 5/5 bilaterally CN XII: protrudes tongue symmetrically Sensory: intact to LT and PP/temp in all extremities Motor: bulk and tone intact. Fine motor movements slightly reduced on the right. Subtle R pronator drift. Strength 5/5 throughout including the deltoids, biceps, triceps, wrist extensors, hip flexors, knee flexors, knee extensors, ankle flexors, and ankle extensors. Reflexes: 2+ at the biceps, triceps, brachioradialis, patella, and achilles tendons bilaterally; +Babinski on R; L toe downgoing Coordination: FTN and HTS intact bilaterally Gait: not seen Results Last Vital Signs Temp 98.1 F 11/17/22 15:28 Pulse 61 11/17/22 15:28 Resp 18 11/17/22 15:28 BP 168/98 H 11/17/22 15:28 Pulse Ox 95 11/17/22 15:28 Labs 11/17/22 05:48 11/17/22 05:48 Labs: Laboratory Results - last 24 hr 11/16/22 11/16/22 11/16/22 19:00 19:00 19:00 WBC 7.31 RBC 3.95 Hgb 12.5 Hct 36.4 MCV 92 MCH 31.6 MCHC 34.3 RDW 12.9 Plt Count 196 MPV 10.2 Immature Gran % 0.3 Neutrophils % 65.3 Lymphocytes % 22.7 Monocytes % 7.3 Eosinophils % 3.7 Basophils % 0.7 Nucleated RBC % 0.0 Absolute Neutrophils 4.78 Absolute Lymphocytes 1.66 Absolute Monocytes 0.53 Absolute Eosinophils 0.27 Absolute Basophils 0.05 Sodium 145 Potassium 3.4 L Chloride 107 Carbon Dioxide 26.2 Anion Gap 11.8 H BUN 19 H Creatinine 1.1 H Est GFR (CKD-EPI 2020) 52.73 Glucose 116 H Hemoglobin A1c Calcium 8.7 Phosphorus Magnesium 2.1 Total Bilirubin AST ALT Alkaline Phosphatase Troponin I < 50 Total Protein Albumin Triglycerides Total Cholesterol LDL Cholesterol, Calc HDL Cholesterol TSH Urine Color Urine Clarity Urine pH Ur Specific [place]aines Urine Protein Urine Ketones Urine Blood Urine Nitrite Urine Bilirubin Urine Urobilinogen Ur Leukocyte Esterase Urine RBC Urine WBC Ur Epithelial Cells Urine Crystals Urine Bacteria Urine Casts Urine Mucus Ur Culture Indicated? Urine Glucose Urine Opiates Screen Urine Methadone Screen Ur Barbiturates Screen Ur Tricyclics Screen Ur Amphetamines Screen U Benzodiazepines Scrn Urine Cocaine Screen Ur THC Screen Ethyl Alcohol COVID-19 Source SARS-CoV-2 (PCR) Add-On Test Request 11/16/22 11/16/22 11/16/22 19:00 21:43 22:22 WBC RBC Hgb Hct MCV MCH MCHC RDW Plt Count MPV Immature Gran % Neutrophils % Lymphocytes % Monocytes % Eosinophils % Basophils % Nucleated RBC % Absolute Neutrophils Absolute Lymphocytes Absolute Monocytes Absolute Eosinophils Absolute Basophils Sodium Potassium Chloride Carbon Dioxide Anion Gap BUN Creatinine Est GFR (CKD-EPI 2020) Glucose Hemoglobin A1c Calcium Phosphorus Magnesium Total Bilirubin AST ALT Alkaline Phosphatase Troponin I < 50 Total Protein Albumin Triglycerides Total Cholesterol LDL Cholesterol, Calc HDL Cholesterol TSH Urine Color Urine Clarity Urine pH Ur Specific [place]aines Urine Protein Urine Ketones Urine Blood Urine Nitrite Urine Bilirubin Urine Urobilinogen Ur Leukocyte Esterase Urine RBC Urine WBC Ur Epithelial Cells Urine Crystals Urine Bacteria Urine Casts Urine Mucus Ur Culture Indicated? Urine Glucose Urine Opiates Screen Urine Methadone Screen Ur Barbiturates Screen Ur Tricyclics Screen Ur Amphetamines Screen U Benzodiazepines Scrn Urine Cocaine Screen Ur THC Screen Ethyl Alcohol 15.9 H COVID-19 Source Nasal/Nares SARS-CoV-2 (PCR) Negative Add-On Test Request 11/17/22 11/17/22 11/17/22 05:45 05:45 05:48 WBC RBC Hgb Hct MCV MCH MCHC RDW Plt Count MPV Immature Gran % Neutrophils % Lymphocytes % Monocytes % Eosinophils % Basophils % Nucleated RBC % Absolute Neutrophils Absolute Lymphocytes Absolute Monocytes Absolute Eosinophils Absolute Basophils Sodium 143 Potassium 4.4 D Chloride 109 H Carbon Dioxide 25.7 Anion Gap 8.3 BUN 17 Creatinine 1.0 Est GFR (CKD-EPI 2020) 59.12 Glucose 105 Hemoglobin A1c Calcium 8.8 Phosphorus 3.2 Magnesium 2.1 Total Bilirubin 0.7 AST 60 H ALT 123 H Alkaline Phosphatase 80 Troponin I Total Protein 6.6 Albumin 3.5 Triglycerides Total Cholesterol LDL Cholesterol, Calc HDL Cholesterol TSH 1.64 Urine Color Urine Clarity Urine pH Ur Specific [place]aines Urine Protein Urine Ketones Urine Blood Urine Nitrite Urine Bilirubin Urine Urobilinogen Ur Leukocyte Esterase Urine RBC Urine WBC Ur Epithelial Cells Urine Crystals Urine Bacteria Urine Casts Urine Mucus Ur Culture Indicated? Urine Glucose Urine Opiates Screen Urine Methadone Screen Ur Barbiturates Screen Ur Tricyclics Screen Ur Amphetamines Screen U Benzodiazepines Scrn Urine Cocaine Screen Ur THC Screen Ethyl Alcohol COVID-19 Source SARS-CoV-2 (PCR) Add-On Test Request 11/17/22 11/17/22 11/17/22 05:48 05:48 05:48 WBC 7.25 RBC 4.14 Hgb 12.6 Hct 38.2 MCV 92 MCH 30.4 MCHC 33.0 RDW 13.1 Plt Count 201 MPV 10.7 Immature Gran % Neutrophils % Lymphocytes % Monocytes % Eosinophils % Basophils % Nucleated RBC % Absolute Neutrophils Absolute Lymphocytes Absolute Monocytes Absolute Eosinophils Absolute Basophils Sodium Potassium Chloride Carbon Dioxide Anion Gap BUN Creatinine Est GFR (CKD-EPI 2020) Glucose Hemoglobin A1c 5.5 Calcium Phosphorus Magnesium Total Bilirubin AST ALT Alkaline Phosphatase Troponin I Total Protein Albumin Triglycerides Total Cholesterol LDL Cholesterol, Calc HDL Cholesterol TSH Urine Color Urine Clarity Urine pH Ur Specific [place]aines Urine Protein Urine Ketones Urine Blood Urine Nitrite Urine Bilirubin Urine Urobilinogen Ur Leukocyte Esterase Urine RBC Urine WBC Ur Epithelial Cells Urine Crystals Urine Bacteria Urine Casts Urine Mucus Ur Culture Indicated? Urine Glucose Urine Opiates Screen Urine Methadone Screen Ur Barbiturates Screen Ur Tricyclics Screen Ur Amphetamines Screen U Benzodiazepines Scrn Urine Cocaine Screen Ur THC Screen Ethyl Alcohol COVID-19 Source SARS-CoV-2 (PCR) Add-On Test Request DONE 11/17/22 11/17/22 11/17/22 09:30 11:43 16:00 WBC RBC Hgb Hct MCV MCH MCHC RDW Plt Count MPV Immature Gran % Neutrophils % Lymphocytes % Monocytes % Eosinophils % Basophils % Nucleated RBC % Absolute Neutrophils Absolute Lymphocytes Absolute Monocytes Absolute Eosinophils Absolute Basophils Sodium Potassium Chloride Carbon Dioxide Anion Gap BUN Creatinine Est GFR (CKD-EPI 2020) Glucose Hemoglobin A1c Calcium Phosphorus Magnesium Total Bilirubin AST ALT Alkaline Phosphatase Troponin I Total Protein Albumin Triglycerides 108 Total Cholesterol 213 H LDL Cholesterol, Calc 115 H HDL Cholesterol 77 TSH Urine Color Yellow Urine Clarity Sl Cloudy Urine pH 7.0 Ur Specific [place]aines 1.015 Urine Protein Negative Urine Ketones Negative Urine Blood Moderate H Urine Nitrite Negative Urine Bilirubin Negative Urine Urobilinogen 0.2 Ur Leukocyte Esterase Large H Urine RBC 10-20 H Urine WBC 20-50 H Ur Epithelial Cells Few Urine Crystals Negative Urine Bacteria Few Urine Casts Negative Urine Mucus Negative Ur Culture Indicated? Yes Urine Glucose Negative Urine Opiates Screen Negative Urine Methadone Screen Negative Ur Barbiturates Screen Negative Ur Tricyclics Screen Negative Ur Amphetamines Screen Negative U Benzodiazepines Scrn Negative Urine Cocaine Screen Negative Ur THC Screen Negative Ethyl Alcohol COVID-19 Source SARS-CoV-2 (PCR) Add-On Test Request
--- NOTE | 2022-11-17 18:02 | PT.INIE ---
Date of service: 11/17/22 Time of Service: 10:47 PT Notes Visit Reasons: TIA (cardiology) Physical Therapy Inpatient Initial Evaluation Date: 11/17/2022 Referring Doctor: Star Mao MD PT Orders: PT CONSULT: Limited ability Precautions: Fall. Standard. Activity as tolerated. Patient Profile/Admitting Diagnosis: Marline is a 72-year-old [id number] female admitted on 11/16/2022 due to slurring of speech and a left facial droop. Patient is diagnosed with TIA, hyperlipidemia, hypertension, hypokalemia, and bilateral carotid artery. PMHX: All Active Problems? Daily consumption of alcohol (Chronic) Hypokalemia (Acute) Carotid stenosis, bilateral (Chronic) TIA (transient ischemic attack) (Acute) Hyperplastic colon polyp (Acute ~08/25/22) Chronic kidney disease (Chronic) Screening for colon cancer (Acute) Neoplasm of unspecified behavior of bone, soft tissue, and skin (Acute) Tendinitis of long head of biceps brachii of right shoulder (Acute) History of total left knee replacement (Acute 03/12/21) DOS 03/12/21Arthrofibrosis of total knee replacement (Acute) LEFT S/P arthroscopy and HAFSA: 02/05/2022 Medical History? Actinic keratoses Arm pain, right Bilateral carotid bruits Facial twitching Family hx of colon cancer Hair loss Hand eczema Hx of adenomatous colonic polyps Hyperlipidemia Hypertension Knee pain, left Menopause Objective pulsatile tinnitus Osteoarthritis Pain, joint, shoulder, right Varicose veins of left lower extremity Surgical History? Colonoscopy - MAC (08/10/17) History of colonoscopy with polypectomy (~08/25/22) Hx of cataract extraction Social History/Home Situation: Lives with in a private home with 3 steps to enter with a rail on the right side going up. She has another flight of steps to the bedroom on the second floor of the house. Independent with all aspects of ADLs prior to admission. Equipment Owned/DME: None Subjective: Patient and daughter agreeable to session. Denies headache, chest pain, and lightheadedness throughout session. Objective: General Observation: Daughter present throughout evaluation. Patient seated at [facility]. Telemetry monitoring in place. Mental Status: Alert and oriented as to person, place, time, and purpose. Able to pay attention, focus, and respond appropriately. Pain: Denies Vital Signs: Closely monitored via tele ROM: Right Upper Extremity: Shoulder Flexion WFL. Shoulder abduction WFL. Elbow flexion WFL. Wrist flexion WFL. Functional opening and closing of hand WFL. Left Upper Extremity: Shoulder Flexion WFL. Shoulder abduction WFL. Elbow flexion WFL. Wrist flexion WFL. Functional opening and closing of hand WFL. Right Lower Extremity: Hip flexion WFL. Hip abduction WFL. Knee flexion WFL. Ankle dorsiflexion WFL. Ankle plantarflexion WFL. Left Lower Extremity: Hip flexion WFL. Hip abduction WFL. Knee flexion WFL. Ankle dorsiflexion WFL. Ankle plantarflexion WFL. Strength: Right Upper Extremity: Shoulder flexors 4/5. Shoulder abductors 4/5. Elbow flexors 5/5. Elbow extensors 5/5. Screw Machine Hand strong. Left Upper Extremity: Shoulder flexors 5/5. Shoulder abductors 5/5. Elbow flexors 5/5. Elbow extensors 5/5. Screw Machine Hand strong. Right Lower Extremity: Hip flexors 4/5. Hip abductors 4/5. Knee flexors 5/5. Knee extensors 5/5. Ankle dorsiflexors 5/5. Ankle plantarflexors 5/5. Left Lower Extremity: Hip flexors 4/5. Hip abductors 4/5. Knee flexors 5/5. Knee extensors 5/5. Ankle dorsiflexors 5/5. Ankle plantarflexors 5/5. Bed Mobility/Transfers: Rolling independent Supine to sit independent Sit to supine independent Sit to stand independent Stand to sit independent Bed to reclining chair independent Reclining chair to bed independen Gait: Instructed patient with level surface ambulation of 200 feet + 200 feet requiring supervision only. No assistive device needed. Gait pattern unremarkable. Stairs: Ascended and descended 6 x 6 inch steps while holding onto 1 rail with supervision, step over step pattern. No assistive device needed. Balance: Static Sitting: Normal Dynamic Sitting: Normal Static Standing: Good Dynamic Standing: Good Special Tests: Mobility Limitations Standardized Measure [facility] 6 clicks Basic Mobility Inpatient Short Form: Raw Score: 24 CMS Score: 0% deficit 4-stage balance test: Able to maintain 10 seconds with feet together and semi-tandem but did not do so full tandem and 1 legged stance indicating a risk for falls. Rapid alternating movement: Intact [id number]: Slowed with R UE Heel to [place]: Intact Pronator drift: Mild with right UE Informed Consent/Education: Patient was instructed in purpose of PT consult and plan of care. Agreeable to proceed with established PT POC to achieve personal goals. Assessment: Patient may walk the hallway independently with no assistive device. Will plan another sessiontomorrow just for monitoring of mobility status and balance retraining. Patient is assessed as a low complexity based on the following: History: 72-year-old female with past medical history as indicated above Examination: Demonstrable impairment in strength, balance, and mobility level with underlying impairments and functional limitations as exhibited above as well as deficit score of 100% utilizing the [facility] Mobility Inpatient Short Form Presentation: Stable Decision Makin low complexity Goals: Goals X1 week 1. Independent gait on level surface with use of no AD for at least 1000 feet without report of pain nor dyspnea 2. Independent stair negotiation while holding onto 1 rails for at least 5 steps without report of pain nor dyspnea Plan of Care/Treatment Plan: 1-2x/day, 7 days/week x 1 week. Plan of care has been reviewed with the [employer] ASSISTANT providing the service under Physical Therapy direction. Initiate Physical Therapy intervention for pain management as needed, strengthening, bed mobility, transfers, gait, stairs, balance training, and use of assistive device. DISCHARGE RECOMMENDATIONS: [X] Home with no services. Home when medically cleared by hospitalist. [] Home with services [specify] [] Home with outpatient PT [] [] SNF for continued rehabilitation [] [] [facility] [] [] SNF versus LTC based on ability to participate and progress [] TREATMENT CODE/TIME: 70742 x 20 minutes beginning at 10:47 AM. Thank you for the opportunity to participate in the care of this patient. Hillary Neri PT, DPT, CLT [facility] [place], [place]
[2022-11-18] VITALS: PULSE 55
[2022-11-18 03:26] VITALS: BP 162/84; PULSE 64; RESP 18; TEMP 36.1; O2SAT 97
[2022-11-18] MEDS: THIAMINE 500 MG in Normal Saline 100 ML 200 MG IVPB ×2 (04:07→11:27)
[2022-11-18] MEDS: Heparin 5,000 UNITS/ML VIAL 5000 UNITS SC (05:19)
[2022-11-18 07:00] VITALS: PULSE 79
[2022-11-18 07:07] VITALS: BP 182/94; PULSE 69; RESP 18; TEMP 36.5; O2SAT 96
[2022-11-18 07:16] LABS: Abs Immature Grans 0.02 10^3/uL (0.0-0.06); Absolute Basophil Count 0.04 10^3/uL (0.0-0.2); Absolute Lymphocyte Count 1.59 10^3/uL (1.2-3.4); Absolute Monocyte Count 0.47 10^3/uL (0.1-0.8); Absolute Neutrophil Count 5.03 10^3/uL (1.2-6.7); Basophils % 0.5; Eosinophils % 2.7; HCT 38.4 % (36.0-46.0); HGB 12.7 g/dL (11.2-15.7); Immature Grans % 0.3; Lymphocytes % 21.6; MCH 30.5 pg (27.0-33.0); MCHC 33.1 % (32.0-36.0); MCV 92 fL (80-95); MPV 10.6 fL (8.0-11.0); Monocytes % 6.4; Neutrophils % 68.5; Platelet Count 198 10^3/uL (130-400); RBC 4.16 10^6/uL (3.93-5.22); RDW-SD 44.3 fL; WBC 7.35 10^3/uL (4.4-10.8)
[2022-11-18 07:50] LABS: Anion Gap 7.4 mmol/L (3-11); BUN 13 mg/dL (7-18); CO2 27.6 mmol/L (21.0-32.0); Calcium 9.2 mg/dL (8.5-10.1); Chloride 110 mmol/L (98-107); Estimated GFR 59.12 (mL/min/1.73m2); Folate 13.5 ng/mL (8.6-20.0); Glucose 99 mg/dL (74-106); Potassium 4.2 mmol/L (3.5-5.1); Sodium 145 mmol/L (136-145); Vitamin B12 388 pg/mL (193-986)
[2022-11-18] MEDS: Clopidogrel 75 MG TAB PO (07:58)
[2022-11-18] MEDS: Omega-3 Fatty Acids 1000 MG CAP PO (07:59)
[2022-11-18] MEDS: Aspirin E.C. 81 MG TABEC PO (07:59)
[2022-11-18] MEDS: Multivitamin TAB 1 TAB PO (07:59)
[2022-11-18] MEDS: Folic Acid 1 MG TAB PO (07:59)
--- NOTE | 2022-11-18 09:25 | PT.INTREAT ---
PT Notes Visit Reasons: TIA (cardiology) Date: 11/18/22 PRECAUTIONS: Fall, standard, activity as tolerated SUBJECTIVE: Pt in bed when approached for therapy this morning, pt agreeable to participating with therapy. OBJECTIVE: ? PAIN: pt did not offer any complaint of pain.? BED MOBILITY/TRANSFERS? Rolling L/R: independent Supine-sit: independent? Sit-supine: independent ? Sit-stand: independent? Stand-sit: independent? Bed-Chair: independent? Chair-bed:? independent ? GAIT? Assistive Device: front wheeled walker? Weight bearing: full Assist: standby ? Distance:? Morning 200', 400', 200' feet? Deviation: increased alessia reminders to slow down ? Therapeutic Activity 20427: Stair negotiation doing 2 flights of stairs consisting ?12steps doing step through gait pattern 1 handrail SBA. ? ASSESSMENT:? Patient tolerates therapy well PLAN: Continue global strengthening per plan of care until patient is medically cleared for discharge TREATMENT CODE/TIME: morning 47861 gait 20mins, 98227 Therapeutic Activity 20mins
--- NOTE | 2022-11-18 09:52 | W.PM.DS.N ---
Date of service: 11/18/22 Time of Service: 09:53 DS: Diagnosis Discharge Diagnosis (1) Ischemic stroke: Status: Acute (2) Carotid stenosis, right: Status: Acute (3) Occlusion of left vertebral artery: Status: Acute (4) Dysarthria: Status: Acute (5) Dysphagia: Status: Acute Discharge Plan Disposition Patient Disposition: Home Condition: Improving Discharge Details Reason For Visit: TIA Admit Date/Time: 11/16/22 21:28 Admit Provider: Star Mao Attending Provider: Star Mao Primary Care Provider: Brook Leon [facility] Hospital Course: this is a 72-year-old female patient who presented to the emergency department for evaluation left-sided facial drop and dysarthria. CTA showing severe short segment stenosis of the origin of the left vertebral artery patient having no posterior circulation symptoms and moderate right with mild left carotid stenosis. the patient on aspirin already and was started on Plavix.? Her symptoms slowly started improving. MRI showed several small foci of restricted diffusion in the left insula and coronary data, consistent with acute lacunar infarcts..? She be discharged on high dose statin clopidogrel in addition to that being asked and will follow-up outpatient with neurology occupational medicine and speech therapy. Hemodynamically she remains stable. She was placed on a product specialist Her echocardiogram with sinus rhythm EF 55 to 60%, no wall motion abnormality and no significant valvular dysfunction RVSP 24 mmHg. discharge is discussed with Dr. omalley [place] Meds and New Rx's Prescriptions: New atorvastatin 40 mg Tablet 80 mg PO QPM Qty: 60 0RF clopidogrel 75 mg Tablet 75 mg PO DAILY Qty: 30 0RF Continued Fish Oil 100-160-1,000 mg capsule 1 cap PO DAILY betamethasone dipropionate 15 GM ointment 15 g Topical PRN PRN aspirin [Adult Aspirin Regimen] 81 mg tablet,delayed release (DR/EC) 81 mg PO DAILY triamcinolone acetonide 0.5 % cream 1 applic topical BID lisinopril 2.5 MG tablet 5 mg PO DAILY ibuprofen 600 mg tablet Patient Comments: TAKE ONE TABLET BY MOUTH THREE TIMES A DAY NEEDED FOR PAIN tramadol 50 mg tablet 50 mg PO Q8H PRNQty: 10 0RF acetaminophen 500 mg tablet 500 mg PO Q6H PRN (Reason: pain) Qty: 60 2RF ibuprofen 600 mg tablet 600 mg PO TID PRN (Reason: pain) Qty: 60 0RF Discontinued pravastatin 20 MG tablet 20 mg PO DAILY No Action potassium 99 mg PO DAILY Patient Comments: over the counter; its been a couple months 08/25/22 Discharge Instructions Instructions: Carotid Artery Disease (DC), Ischemic Stroke (DC) Additional Instructions: Wear product specialist as directed Take all your medications as prescribed Stand Alone Forms: Nursing Discharge Form Referrals: Feli Saucedo [REG OCCUPATIONAL THERAPIST] - 11/25/22 10:30 am Linda Greenfield [SPEECH LANGUAGE PATHOLOGIST] - 12/08/22 10:30 am () Brook Leon MD [Primary Care Provider] - 11/25/22 1:20 pm (Appointment will be with Tanya Chaudhry.) Cha Watson MD [[facility] STAFF PHYSICIAN] - (Office will call with appointment.) Activity:: Activity as Tolerated Equipment/Supplies:: No Equipment Needed Diet:: As Tolerated Discharge Orders Discharge Orders: Discharge Order (Routine); Ordered 11/18/22 Ordered By: Michelle Fitch Other Ambulatory Orders: Cardiac Event Recorder (Routine) Timeframe: 20221118 Facility: [facility] - Location: Respiratory Therapy Ordered By: Michelle Fitch Discharge Data Discharge Date/Time-TO BE ENTERED AT DEPARTURE: 11/18/22 13:30 DS: Summary Time Spent with Patient providing and/or coordinating discharge services: Greater than 30 minutes Status at Discharge Functional status at discharge: independent ambulation Overall status at discharge: patient is not back to baseline Mental Status: mental status grossly normal Speech and Movement: speech and movement normal Mood: congruent mood Affect: normal affect Exam Const General: cooperative, comfortable and no acute distress Nutritional Appearance: average body habitus Orientation: alert, awake and oriented x3 HENMT Head: normal to inspection, normocephalic and atraumatic Face and sinus: face asymmetric (Slight droop on left) Mouth: oral mucosae normal and tongue normal Chest Chest: normal inspection of the chest Resp Effort & Inspection: normal respiratory effort Cardio Rate: regular rate Rhythm: regular rhythm GI Inspection: normal to inspection Palpation: soft Skin General skin exam: no rashes or lesions noted Neuro General: patient alert, patient awake and patient oriented x3 Cognition: normal cognition Speech: speech normal Motor: muscle tone normal throughout Extrem General: normal to inspection and full ROM Psych Mental Status: mental status grossly normal Speech and Movement: speech and movement normal Mood: congruent mood Affect: normal affect DS: Data Vitals/I&O Vitals and I&O: Vital Signs Temperature 36.5 C 11/18/22 07:07 Temperature Source Tympanic 11/18/22 07:07 Pulse 69 11/18/22 07:07 Pulse Rhythm Regular 11/18/22 01:06 Pulse 93 H 11/16/22 22:46 Respiratory Rate 18 11/18/22 07:07 Respiratory Effort Normal 11/18/22 01:06 Respiratory Depth Normal 11/18/22 01:06 Respiratory Pattern Normal 11/18/22 01:06 Blood Pressure 182/94 H 11/18/22 07:07 Blood Pressure Mean 101 11/16/22 22:46 Pulse Oximetry 96 11/18/22 07:07 Oxygen Delivery Method Room Air 11/18/22 07:07 Oxygen Flow Rate 0 11/18/22 07:07 Pain Level 0 11/18/22 07:07 Comment BP called over radio 11/18/22 07:07 Intake & Output 11/17/22 11/17/22 11/18/22 11:59 23:59 11:59 Intake Total 251 / 1181 930 / 1181 105 / 105 Output Total 1050 / 1050 400 / 400 Balance 251 / 131 -120 / 131 -295 / -295 Weight 66.3 kg 66.1 kg Intake: IV 251 / 461 210 / 461 105 / 105 Oral 720 / 720 Output: Urine 1050 / 1050 400 / 400 Other: Urine Color Yellow Yellow Yellow Urine Appearance Clear Clear Clear Urine Odor None Voiding Methods Toilet Data Completed and Pending Labs on day of discharge: Labs from last 24 hours 11/18/22 11/18/22 11/17/22 06:03 06:03 16:00 WBC 7.35 RBC 4.16 Hgb 12.7 Hct 38.4 MCV 92 MCH 30.5 MCHC 33.1 RDW 13.0 Plt Count 198 MPV 10.6 Immature Gran % 0.3 Neutrophils % 68.5 Lymphocytes % 21.6 Monocytes % 6.4 Eosinophils % 2.7 Basophils % 0.5 Nucleated RBC % 0.0 Absolute Neutrophils 5.03 Absolute Lymphocytes 1.59 Absolute Monocytes 0.47 Absolute Eosinophils 0.20 Absolute Basophils 0.04 Sodium 145 Potassium 4.2 Chloride 110 H Carbon Dioxide 27.6 Anion Gap 7.4 BUN 13 Creatinine 1.0 Est GFR (CKD-EPI 2020) 59.12 Glucose 99 Hemoglobin A1c Calcium 9.2 Magnesium 2.0 Triglycerides 108 Total Cholesterol 213 H LDL Cholesterol, Calc 115 H HDL Cholesterol 77 Vitamin B12 388 Folate 13.5 Urine Color Urine Clarity Urine pH Ur Specific [place] Urine Protein Urine Ketones Urine Blood Urine Nitrite Urine Bilirubin Urine Urobilinogen Ur Leukocyte Esterase Urine RBC Urine WBC Ur Epithelial Cells Urine Crystals Urine Bacteria Urine Casts Urine Mucus Ur Culture Indicated? Urine Glucose Urine Opiates Screen Urine Methadone Screen Ur Barbiturates Screen Ur Tricyclics Screen Ur Amphetamines Screen U Benzodiazepines Scrn Urine Cocaine Screen Ur THC Screen 11/17/22 11/17/22 11/17/22 11:43 09:30 05:48 WBC RBC Hgb Hct MCV MCH MCHC RDW Plt Count MPV Immature Gran % Neutrophils % Lymphocytes % Monocytes % Eosinophils % Basophils % Nucleated RBC % Absolute Neutrophils Absolute Lymphocytes Absolute Monocytes Absolute Eosinophils Absolute Basophils Sodium Potassium Chloride Carbon Dioxide Anion Gap BUN Creatinine Est GFR (CKD-EPI 2020) Glucose Hemoglobin A1c 5.5 Calcium Magnesium Triglycerides Total Cholesterol LDL Cholesterol, Calc HDL Cholesterol Vitamin B12 Folate Urine Color Yellow Urine Clarity Sl Cloudy Urine pH 7.0 Ur Specific [place] 1.015 Urine Protein Negative Urine Ketones Negative Urine Blood Moderate H Urine Nitrite Negative Urine Bilirubin Negative Urine Urobilinogen 0.2 Ur Leukocyte Esterase Large H Urine RBC 10-20 H Urine WBC 20-50 H Ur Epithelial Cells Few Urine Crystals Negative Urine Bacteria Few Urine Casts Negative Urine Mucus Negative Ur Culture Indicated? Yes Urine Glucose Negative Urine Opiates Screen Negative Urine Methadone Screen Negative Ur Barbiturates Screen Negative Ur Tricyclics Screen Negative Ur Amphetamines Screen Negative U Benzodiazepines Scrn Negative Urine Cocaine Screen Negative Ur THC Screen Negative 11/17/22 09:30 Urine - Reflex from [facility] Urine Culture - Pending Preliminary micro results at discharge 11/17/22 09:30 Urine Culture - Pending Urine - Reflex from [facility] All Active Problems Dysphagia (Acute) Dysarthria (Acute) Occlusion of left vertebral artery (Acute) Carotid stenosis, right (Acute) Ischemic stroke (Acute) Daily consumption of alcohol (Chronic) Hypokalemia (Acute) TIA (transient ischemic attack) (Acute) Hyperplastic colon polyp (Acute ~08/25/22) Chronic kidney disease (Chronic) Screening for colon cancer (Acute) Neoplasm of unspecified behavior of bone, soft tissue, and skin (Acute) Tendinitis of long head of biceps brachii of right shoulder (Acute) History of total left knee replacement (Acute 03/12/21) DOS 03/12/21 Arthrofibrosis of total knee replacement (Acute) LEFT S/P arthroscopy and HAFSA: 02/05/2022 Medical History Actinic keratoses Arm pain, right Bilateral carotid bruits Facial twitching Family hx of colon cancer Hair loss Hand eczema Hx of adenomatous colonic polyps Hyperlipidemia Hypertension Knee pain, left Menopause Objective pulsatile tinnitus Osteoarthritis Pain, joint, shoulder, right Varicose veins of left lower extremity Surgical History Colonoscopy - MAC (08/10/17) History of colonoscopy with polypectomy (~08/25/22) Hx of cataract extraction Family History Mother Colon cancer Social History Smoking/Tobacco Use Status: Never Smoking risk assessment performed?: Yes Alcohol Intake: current Alcohol Intake frequency: 3 or more drinks per day Alcohol type: hard liquor Drug use: Never Substance use type: does not use Do you feel safe at home: Yes Do you feel safe in your relationship?: Yes Time Spent with Patient Time Spent with Patient: <45 minutes Time was spent: preparing to see the patient(eg.review tests), obtaining and/or reviewing separately otained hiistory, ordering medications,tests, procedures, indepentently interpreting results and counseling the patient
--- NOTE | 2022-11-18 10:05 | PDOC.CMPRO ---
Date of service: 11/18/22 Time of Service: 10:06 Care Management Progress Note Progress Note Text Progress Note Text: S/O: Marline remains inpatient, CM continues to follow. A: 72 year old female admitted to [facility] 11/16/22 for TIA P: Anticipate Marline will return home when ready per MD. She will follow up with her PCP and plan of care as prescribed. CM continues to follow.
[2022-11-18] MEDS: Cyanocobalamin 500 MCG TAB 1000 MCG PO (10:06)
[2022-11-18] MEDS: Cyanocobalamin 1000 MCG/ML VIAL IM (10:10)
[2022-11-18 11:20] VITALS: BP 165/96; PULSE 69; RESP 18; TEMP 36.7; O2SAT 98
--- NOTE | 2022-11-18 11:24 | PDOC.CMDIS ---
Date of service: 11/18/22 Time of Service: 12:20 LACE Index Scoring Tool Questions: Length of Stay (in days): 2 Was the patient admitted via the E.D.?: Yes Comorbidities: Mild Liver/Renal Disease E.D. Visits: 0 Answers: Total Score: 7 Risk of Readmission: Low Risk Care Management Discharge Plan Reason for Hospitalization: TIA Discharge Plan: Marline will return home when ready per MD. She will follow up with her PCP and plan of care as prescribed. Patient/Family Education Needs: Review discharge instructions, discuss Ask Me Three.
--- NOTE | 2022-11-18 12:06 | NUR.NOTE ---
Nursing Note: Daughter was looking for patient's home medications. Daughter advised she took pick them up at Pharmacy
[2022-11-18 14:29] VITALS: PULSE 82
--- NOTE | 2022-11-18 19:37 | OTIE_ITS ---
Occupational Therapy Notes Inpatient Occupational Therapy Evaluation Date: 11/18/22 Referring Doctor:Star Mao OT Orders: Non Urgent Precautions: Fall, Standard, Full PATIENT PROFILE/ADMITTING DIAGNOSIS: Pt is an 72 year old female who presented to the ED with symptoms similar to a TIA. She was admitted to Med Surg for further assessment. Past Medical History: All Active Problems? Daily consumption of alcohol (Chronic) Hypokalemia (Acute) Carotid stenosis, bilateral (Chronic) TIA (transient ischemic attack) (Acute) Hyperplastic colon polyp (Acute ~08/25/22) Chronic kidney disease (Chronic) Screening for colon cancer (Acute) Neoplasm of unspecified behavior of bone, soft tissue, and skin (Acute) Tendinitis of long head of biceps brachii of right shoulder (Acute) History of total left knee replacement (Acute 03/12/21) DOS 03/12/21Arthrofibrosis of total knee replacement (Acute) LEFT S/P arthroscopy and HAFSA: 02/05/2022 Medical History? Actinic keratoses Arm pain, right Bilateral carotid bruits Facial twitching Family hx of colon cancer Hair loss Hand eczema Hx of adenomatous colonic polyps Hyperlipidemia Hypertension Knee pain, left Menopause Objective pulsatile tinnitus Osteoarthritis Pain, joint, shoulder, right Varicose veins of left lower extremity Surgical History? Colonoscopy - MAC (08/10/17) History of colonoscopy with polypectomy (~08/25/22) Hx of cataract extraction Social History/Home Situation: Pt lives in a private home she notes that prior to admission she was (I) with her ADL/IADL routines. She feels that she is back to her current baseline level of function. Equipment owned/DME: shower seat, grab bars SUBJECTIVE: Pt is sitting on side if bed when OT arrived. She is agreeable to OT session. OBJECTIVE: General Observation: Pleasant with IV in (R) UE, pt states that she believes she is going home today. Mental Status: A&Ox4 Pain: no c/o pain ROM: RUE AROM WFL L UE AROM WFL STRENGTH: RUE 5/5 globally LUE 4+/5 globally FUNCTIONAL MOBILITY/ADLS: Transfers (I) Supine-sit (I) Sit-supine (I) Sit-Stand (I) Stand-sit (I) Bed-door (I) BATHING NT as pt denies but she has functional ROM for (I) in her bathing routine. DRESSING seated on side of the bed Dressing UE (I) [facility] gown Dressing LE (I) don and doffing (B) Socks GROOMING standing at sink (I) with oral hygiene TOILETING on toilet (I) EATING seated (I) BALANCE: Static sitting Normal Dynamic Sitting Normal Static Standing Normal Dynamic Standing Normal INFORMED CONSENT/EDUCATION: Pt instructed in purpose of OT Consult and plan of care. ASSESSMENT: Patient is a 72-year-old female referred to occupational therapy services with diagnosis of Dysphagia, dysarthria, occusion of (L) vertebral artery, (R) carotid stenosis, ischemic stroke, daily alcohol consumption, hypok alemia, TIA. Patient presents with clinical signs and symptoms consistent with dx. OT went in to consult with pt who was able to demonstrate (I) in her ADL/IADL routines. She could perform them in the standing and sitting postion without (A). Patient is assessed as a Low 30371 complexity based on the following: History: see above Examination: see functional limitations as noted above Presentation: evolving Decision Making: low complexity GOALS N/A seen for OT consult only. PLAN OF CARE/TREATMENT PLAN: Discharge from skilled OT services DISCHARGE RECOMMENDATIONS Home when medically cleared per MD TREATMENT TIME/MINUTES/CODES 64494, 15 minutes (08:25) Feli Saucedo, OTR/L [facility]
--- NOTE | 2022-11-25 09:43 | INDS_ITS ---
Date of service: 11/18/22 PT Notes Visit Reasons: TIA (cardiology) Physical Therapy Inpatient Discharge Summary Date: 11/18/2022 Dates of Service: 11/17/2022 through 11/18/2022 This is a clinical summary of care provided for the duration of dates listed above. No charge was made in the completion of this documentation. Referring Doctor: Star Mao MD PT Orders: PT CONSULT: Limited ability Precautions: Fall. Standard. Activity as tolerated. Patient Profile/Admitting Diagnosis:? Marline is a 72-year-old [id number] female admitted on 11/16/2022 due to slurring of speech and a left facial droop.? Patient is diagnosed with TIA, hyperlipidemia, hypertension, hypokalemia, and bilateral carotid artery. PMHX: All Active Problems? Daily consumption of alcohol (Chronic) Hypokalemia (Acute) Carotid stenosis, bilateral (Chronic) TIA (transient ischemic attack) (Acute) Hyperplastic colon polyp (Acute ~08/25/22) Chronic kidney disease (Chronic) Screening for colon cancer (Acute) Neoplasm of unspecified behavior of bone, soft tissue, and skin (Acute) Tendinitis of long head of biceps brachii of right shoulder (Acute) History of total left knee replacement (Acute 03/12/21) DOS 03/12/21Arthrofibrosis of total knee replacement (Acute) LEFT S/P arthroscopy and HAFSA: 02/05/2022 Medical History? Actinic keratoses Arm pain, right Bilateral carotid bruits Facial twitching Family hx of colon cancer Hair loss Hand eczema Hx of adenomatous colonic polyps Hyperlipidemia Hypertension Knee pain, left Menopause Objective pulsatile tinnitus Osteoarthritis Pain, joint, shoulder, right Varicose veins of left lower extremity Surgical History? Colonoscopy - MAC (08/10/17) History of colonoscopy with polypectomy (~08/25/22) Hx of cataract extraction Social History/Home Situation: Lives with in a private home with 3 steps to enter with a rail on the right side going up.? She has another flight of steps to the bedroom on the second floor of the house. Independent with all aspects of ADLs prior to admission. Equipment Owned/DME: None Subjective: NT. See most recent HOSPICE FELLOW notes. Objective: General Observation: NT. See most recent HOSPICE FELLOW notes. Mental Status: NT. See most recent HOSPICE FELLOW notes. Pain: NT. See most recent HOSPICE FELLOW notes. Vital Signs: NT. See most recent HOSPICE FELLOW notes. ROM: Right Upper Extremity: ? Shoulder Flexion WFL. Shoulder abduction WFL. Elbow flexion WFL. Wrist flexion WFL. Functional opening and closing of hand WFL. Left Upper Extremity:? Shoulder Flexion WFL. Shoulder abduction WFL. Elbow flexion WFL. Wrist flexion WFL. Functional opening and closing of hand WFL. Right Lower Extremity: Hip flexion WFL. Hip abduction WFL. Knee flexion WFL. Ankle dorsiflexion WFL. Ankle plantarflexion WFL. Left Lower Extremity: Hip flexion WFL. Hip abduction WFL. Knee flexion WFL. Ankle dorsiflexion WFL. Ankle plantarflexion WFL. Strength: Right Upper Extremity: Shoulder flexors 4/5. Shoulder abductors 4/5. Elbow flexors 5/5. Elbow extensors 5/5. [employer] Worker strong. Left Upper Extremity:? Shoulder flexors 5/5. Shoulder abductors 5/5. Elbow flexors 5/5. Elbow extensors 5/5. [place] Worker strong. Right Lower Extremity: Hip flexors 4/5. Hip abductors 4/5. Knee flexors 5/5. Knee extensors 5/5. Ankle dorsiflexors 5/5. Ankle plantarflexors 5/5. Left Lower Extremity: Hip flexors 4/5. Hip abductors 4/5. Knee flexors 5/5. Knee extensors 5/5. Ankle dorsiflexors 5/5. Ankle plantarflexors 5/5. BED MOBILITY/TRANSFERS? Rolling L/R: independent Supine-sit: independent? Sit-supine: independent ? Sit-stand: independent? Stand-sit: independent? Bed-Chair: independent? Chair-bed:? independent ? GAIT? Assistive Device: front wheeled walker? Weight bearing: full Assist: standby ? Distance:? Morning 200', 400', 200' feet? Deviation: increased alessia reminders to slow down ? Stairs:? Ascended and descended 6 x 6 inch steps while holding onto 1 rail with supervision, step over step pattern. No assistive device needed. Balance: Static Sitting: Normal Dynamic Sitting: Normal Static Standing: Good Dynamic Standing: Good Special Tests: Mobility Limitations Standardized Measure [facility] 6 clicks Basic Mobility Inpatient Short Form: Raw Score: 24? CMS Score: 0% deficit? ? ? 4-stage balance test: Able to maintain 10 seconds with feet together and semi- tandem but did not do so full tandem and 1 legged stance indicating a risk for falls. Rapid alternating movement:? Intact [id number]:? Slowed with R UE Heel to [place]:? Intact Pronator drift: Mild with right UE Assessment: Patient may walk the hallway independently with no assistive device.? Will plan another sessiontomorrow just for monitoring of mobility status and balance retraining. Goals: Goals X1 week 1. Independent gait on level surface with use of no AD for at least 1000 feet without report of pain nor dyspnea NOT MET 2. Independent stair negotiation while holding onto 1 rails for at least 5 steps without report of pain nor dyspnea NOT MET DISCHARGE RECOMMENDATIONS: [X] ? Home with no services.? Home when medically cleared by hospitalist. [] ? Home with services [specify] [] ? Home with outpatient PT [] [] ? SNF for continued rehabilitation [] [] ? Stoker Installation Mechanic Care [] [] ? SNF versus LTC based on ability to participate and progress [] TREATMENT CODE/TIME: [place] Thank you for the opportunity to participate in the care of this patient. Hillary Neri PT, DPT, CLT [facility] [place], [place]
== END 2022-11-18 13:30 | disposition home or self-care (01) ==
LOC: ER 22:27 → MS 23:11
PROVIDERS: Emergency Medicine; Internal Medicine; Nurse Practitioner Acute Care; Admitting Provider Family Medicine; Emergency Provider Emergency Medicine; PCP Family Medicine; Visit Provider Family Medicine
DX: I63.81 Other cerebral infarction due to occlusion or stenosis of small artery (principal); I65.02 Occlusion and stenosis of left vertebral artery; I65.23 Occlusion and stenosis of bilateral carotid arteries; R29.810 Facial weakness; R47.81 Slurred speech; E78.5 Hyperlipidemia, unspecified; I10 Essential (primary) hypertension; Z79.899 Other long term (current) drug therapy; Z79.82 Long term (current) use of aspirin; I48.0 Paroxysmal atrial fibrillation; N18.9 Chronic kidney disease, unspecified; Z96.652 Presence of left artificial knee joint; I25.2 Old myocardial infarction; E87.6 Hypokalemia; F10.90 Alcohol use, unspecified, uncomplicated; I35.8 Other nonrheumatic aortic valve disorders; R47.1 Dysarthria and anarthria; R13.10 Dysphagia, unspecified
CPT/HCPCS: 36410; 36415; 70496; 70498; 80048; 80053; 80061; 80307; 85027; 87635; 93005; 93306; 96365; 96366; 96372; 99223; 99285; 70450; 70551; 71046; 80320; 81003; 81015; 82607; 82746; 83036; 83735; 84100; 84443; 84484; 85025; 87086; 93010; 99233; 99239; G0378; J1644; J3420; J3480; J3490

== ENCOUNTER → 2022-11-17 08:12 | Outpatient (BNVA) | payer MEDICARE, MEDICAID, SELFPAY | PROVIDERS: PCP Family Medicine; Referring Provider Family Medicine; Visit Provider Psychiatry & Neurology Neurology ==

== ENCOUNTER 2022-11-18 13:55 | Outpatient (RCR) | payer MEDICARE, MEDICAID, SELFPAY | END 2022-11-28 23:59 | disposition home or self-care (01) | LOC: RT 13:55 | PROVIDERS: PCP Family Medicine; Visit Provider Family Medicine | DX: I63.9 Cerebral infarction, unspecified (principal); G45.9 Transient cerebral ischemic attack, unspecified | CPT/HCPCS: 93227; 93270; 97116; 97161; 97165; 97530 ==

== ENCOUNTER → 2022-11-24 14:12 | Outpatient (BNVA) | payer MEDICARE, MEDICAID, SELFPAY | PROVIDERS: PCP Family Medicine; Visit Provider Student in an Organized Health Care Education/Training Program | DX: Z47.1 Aftercare following joint replacement surgery (principal); T84.82XD Fibrosis due to internal orthopedic prosthetic devices, implants and grafts, subsequent encounter; Z96.652 Presence of left artificial knee joint ==

== ENCOUNTER 2022-12-11 15:36 | Emergency (ER) | payer MEDICARE, MEDICAID, SELFPAY ==
[2022-12-11] VITALS (14 sets, daily range): BP systolic 116–152; BP diastolic 67–94; PULSE 68–108; RESP 18–20; TEMP 37.6; O2SAT 97–99
--- NOTE | 2022-12-11 16:22 | ED.GENADUL_ITS ---
Discharge Plan Disposition Patient Disposition: Transfer-Acute Inpatient Care Specific Acute Inpt Facility: Other Condition: Good Discharge Details Clinical Impression: Elevated LFTs, Acute gastrointestinal bleeding Primary Care Provider: Brook Leon ED Provider: Cleve Arnold Home Meds and New Rx's Prescriptions: No Action Fish Oil 100-160-1,000 mg capsule 1 cap PO DAILY betamethasone dipropionate 15 GM ointment 15 g Topical PRN PRN aspirin [Adult Aspirin Regimen] 81 mg tablet,delayed release (DR/EC) 81 mg PO DAILY triamcinolone acetonide 0.5 % cream 1 applic topical BID lisinopril 2.5 MG tablet 5 mg PO DAILY clopidogrel 75 mg Tablet 75 mg PO DAILY Qty: 30 0RF atorvastatin 80 mg tablet 80 mg PO QHS Qty: 30 0RF acetaminophen 500 mg tablet 500 mg PO Q6H PRN (Reason: pain) Qty: 60 2RF ibuprofen 600 mg tablet 600 mg PO TID PRN (Reason: pain) Qty: 60 0RF Medical Decision Making This is an overall very well-appearing normothermic and mildly tachycardic 72-year-old female on dual antiplatelet agents with history most consistent with upper GI bleed in the setting of reported melena. Will obtain 2 IVs and keep patient NPO. Will order 80 mg pantoprazole. We will calculate a Glascow Blatchford bleeding score though I anticipate it will be elevated given prehospital hemoglobin of 11 and tachycardia on arrival with history of melena. No syncope nor hepatic disease history nor history of cardiac failure. Patient reports that she stopped drinking alcohol last month. Given no hematemesis I am not concerned for variceal bleed so will defer octreotide at this point time. Soft nontender abdomen and no history of cirrhosis so we will defer ceftriaxone as my suspicion for spontaneous bacterial peritonitis is exceedingly low. We will provide 80 mg of pantoprazole. Anticipate patient will require EGD tomorrow. We will transfuse if her hemoglobin is less than 7 and will send type and screen. We will send troponins to assess for myocardial injury. 5:34 PM CBC with no anemia thrombocytopenia nor leukocytosis. Negative troponin. Comprehensive metabolic panel blood mildly elevated LFTs. Elevated BUN and 30 mg/dL new compared to prior. No MIR. Normal reassuring magnesium. Patient has a Glascow Blatchford bleeding score of 6 making her high risk. Will page general surgery. 5:41 PM Reassuring normal lipase. I spoke with Dr. Turk from general surgery who will review the patient's labs and call me back. 6:[address] Turk wasn't able to accept the patient for local hospitalization to perform an EGD as apparently anesthesia has a policy preventing them from intubating patient who have had a CVA in the prior six month. I will look for transfer. Unfortunately [facility] declined due to capacity. Will page [facility]. 7:20 PM [facility] declined secondary to capacity. We will try [facility] as patient needs general surgery for EGD. 7:35 PM Unfortunately [facility] declined as well. I put a call to [facility]. 8:18 PM Unfortunately [facility] hospital declined. We will attempt to transfer patient to [facility] in [place]. 9:09 PM Repeat troponin negative. Acute blood loss anemia with hemoglobin down to 10.6 from 12.3 after receiving only 500 cc crystalloid. Coags within normal limits. Still awaiting callback from [facility]. 10:13 PM Unfortunately [facility] declined. I called [facility] and unfortunately due to her capacity. I have asked health community engagement leader [place] to have [facility] paged with hospitalization request. 11:40 PM [facility] declined. I received a call from [facility]. They are still trying to get a provider to accept the patient at [facility]. 12:18 PM I spoke with Dr. Fisher from the [facility] at [address] in [place], [place]. He agreed to accept the patient. Chronic conditions affecting the care of the patient: Not applicable History obtained from an outside historian: Not applicable External record review: Limited records in [facility] EMR. Medications: 80 mg pantoprazole Social determinants of health affecting disposition: Not applicable Management discussed with: GI at the [facility] Treatment/interventions considered: Local hospitalization but deferred Response to therapies provided: Drop in hemoglobin in the ED. HPI General Date/Time Provider Initiated Documentation: 12/11/22 16:22 . HPI Narrative: This is a 72-year-old female on dual antiplatelet agents with clopidogrel and aspirin now in the emergency department with concern for possible GI bleed. Patient reported at urgent care this morning that she had formed, black stool. She had bloody diarrhea in the urgent care clinic where her Hemoccult was positive. She is not anticoagulated. She is having no abdominal pain. She reported that she had a colonoscopy last year. She has never had an EGD. She last tolerated p.o. this morning. She has not had any syncope. She has not had any alcohol in more than 1 month. She denies any hematemesis nausea and vomiting. She has no history of cirrhosis nor heart failure. Related Data Home Medications Medication Instructions Recorded Confirmed lisinopril 2.5 mg tablet 5 mg PO DAILY 02/22/14 12/11/22 betamethasone dipropionate 0.05 % 15 g topical PRN PRN 07/20/17 12/11/22 topical ointment omega 9-drn-dua-fish oil 100 1 cap PO DAILY 03/13/22 12/11/22 mg-160 mg-1,000 mg capsule (Fish Oil) aspirin 81 mg tablet,delayed 81 mg PO DAILY 04/01/22 12/11/22 release (Adult Aspirin Regimen) triamcinolone acetonide 0.5 % 1 applic topical BID 04/01/22 12/11/22 topical cream acetaminophen 500 mg tablet 500 mg PO Q6H PRN pain #60 tabs 10/07/22 12/11/22 ibuprofen 600 mg tablet 600 mg PO TID PRN pain #60 tabs 10/07/22 12/11/22 clopidogrel 75 mg tablet 75 mg PO DAILY #30 tabs 11/18/22 12/11/22 atorvastatin 80 mg tablet 80 mg PO QHS #30 tabs 11/19/22 12/11/22 Previous Rx's Medication Instructions Recorded acetaminophen 500 mg tablet 500 mg PO Q6H PRN pain #60 tabs 10/07/22 ibuprofen 600 mg tablet 600 mg PO TID PRN pain #60 tabs 10/07/22 clopidogrel 75 mg tablet 75 mg PO DAILY #30 tabs 11/18/22 atorvastatin 80 mg tablet 80 mg PO QHS #30 tabs 11/19/22 Allergies Allergy/AdvReac Type Severity Reaction Status Date / Time No Known Allergies Allergy Verified 12/11/22 14:34 General Stated Complaint: GI Bleed KWESI: 3 PFSH All Active Problems (Updated 11/25/22 @ 18:46 by Angel Joshua MD) Elevated LFTs (Acute) Acute gastrointestinal bleeding (Acute) Dysphagia (Acute) Dysarthria (Acute) Occlusion of left vertebral artery (Acute) Carotid stenosis, right (Acute) Ischemic stroke (Acute) Daily consumption of alcohol (Chronic) Hypokalemia (Acute) TIA (transient ischemic attack) (Acute) Hyperplastic colon polyp (Acute ~08/25/22) Chronic kidney disease (Chronic) Screening for colon cancer (Acute) Neoplasm of unspecified behavior of bone, soft tissue, and skin (Acute) Tendinitis of long head of biceps brachii of right shoulder (Acute) 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) DOS 03/12/21 Medical History (Updated 12/11/22 @ 17:36 by Ruben Jasmine MD) Actinic keratoses Arm pain, right Bilateral carotid bruits Facial twitching Family hx of colon cancer Hair loss Hand eczema Hx of adenomatous colonic polyps Hyperlipidemia Hypertension Knee pain, left Menopause Objective pulsatile tinnitus Osteoarthritis Pain, joint, shoulder, right Varicose veins of left lower extremity Surgical History (Updated 11/25/22 @ 18:46 by Angel Joshua MD) Colonoscopy - MAC (08/10/17) History of colonoscopy with polypectomy (~08/25/22) Hx of cataract extraction Family History Mother Colon cancer Social History Smoking/Tobacco Use Status: Never Smoking risk assessment performed?: Yes Alcohol Intake: current Alcohol Intake frequency: 3 or more drinks per day Alcohol type: hard liquor Drug use: Never Substance use type: does not use Housing: house Do you feel safe at home: Yes Do you feel safe in your relationship?: Yes Exam Narrative Exam Narrative: General: Well-appearing in no acute distress speaking in complete sentences. Head: Normocephalic, atraumatic. Eye: Extraocular eye movements intact. No conjunctival injection. No scleral icterus. Ear, nose, mouth, throat: Grossly normal inspection. Normal voice, handling secretions normally. Neck: Trachea midline. Cardiovascular: Well-perfused distal extremities. Rapid regular rate. Respiratory: Nonlabored respiration.Clear lungs. Deferred rectal exam given heme positive stool at urgent care and history of melena. Gastrointestinal: Nondistended abdomen. Soft nontender abdomen. No rebound. No guarding. Musculoskeletal: No edema. Moving all 4 extremities spontaneously. Skin: Normal for age and race, grossly normal temperature and turgor. No acute rash. Neurologic: Alert and appropriate, no apparent acute deficits. Psychiatric: Mood and manner are appropriate. Grooming and personal hygiene are appropriate. Course Vital Signs Vital signs: Vital Signs Temperature 37.6 C H 12/11/22 15:39 Pulse 108 H 12/11/22 15:39 Respiratory Rate 18 12/11/22 15:39 Blood Pressure 116/94 H 12/11/22 15:39 Pulse Oximetry 99 12/11/22 15:39 Temperature 37.6 C H 12/11/22 15:39 Pulse 108 H 12/11/22 15:39 Respiratory Rate 18 12/11/22 15:39 Respiratory Effort Normal 12/11/22 16:20 Blood Pressure 116/94 H 12/11/22 15:39 Blood Pressure Position Sitting 12/11/22 15:39 Pulse Oximetry 99 12/11/22 15:39 Oxygen Delivery Method Room Air 12/11/22 15:39 Oxygen Flow Rate 0 12/11/22 15:39 Pain Level 0 12/11/22 15:39 Critical Care Time Critical Care Time Critical Care Time: Yes Total Critical Care Time: 30 Attestation: I completed 30 minutes of critical care time on this patient including consultation with general surgery and trending hemoglobins. Sign Out Sign Out Data: Sign Out Comment: I received signout on the patient. She has remained stable overnight. She has been accepted at a facility in [place] but we were unable to obtain transport. Her H&H repeated this morning shows only a minor decrease. I have signed her out to Dr. Arnold. Last updated by Tracie Leong MD at 12/12/22 08:00
[2022-12-11] MEDS: Pantoprazole 40 MG VIAL 80 MG IVP (16:42)
[2022-12-11 16:54] LABS: Abs Immature Grans 0.02 10^3/uL (0.0-0.06); Absolute Basophil Count 0.05 10^3/uL (0.0-0.2); Absolute Eosinophil Count 0.19 10^3/uL (0.0-0.7); Absolute Lymphocyte Count 1.42 10^3/uL (1.2-3.4); Absolute Monocyte Count 0.51 10^3/uL (0.1-0.8); Absolute Neutrophil Count 5.47 10^3/uL (1.2-6.7); Basophils % 0.7; Eosinophils % 2.5; HCT 36.5 % (36.0-46.0); HGB 12.3 g/dL (11.2-15.7); Immature Grans % 0.3; Lymphocytes % 18.5; MCH 30.4 pg (27.0-33.0); MCHC 33.7 % (32.0-36.0); MCV 90 fL (80-95); Monocytes % 6.7; Neutrophils % 71.3; Platelet Count 264 10^3/uL (130-400); RBC 4.04 10^6/uL (3.93-5.22); RDW 12.6 % (11.7-14.6); RDW-SD 41.4 fL; WBC 7.66 10^3/uL (4.4-10.8)
[2022-12-11] MEDS: Normal Saline 500 ML IV (17:09)
[2022-12-11 17:20] LABS: ALT 81 U/L (14-59); AST 48 U/L (15-37); Albumin 4.1 g/dL (3.4-5.0); Alkaline Phosphatase 88 U/L (46-116); Anion Gap 10.1 mmol/L (3-11); BUN 30 mg/dL (7-18); Bilirubin, Total 0.7 mg/dL (0.2-1.0); CO2 25.9 mmol/L (21.0-32.0); Calcium 9.6 mg/dL (8.5-10.1); Chloride 105 mmol/L (98-107); Estimated GFR 59.12 (mL/min/1.73m2); Glucose 87 mg/dL (74-106); Potassium 3.8 mmol/L (3.5-5.1); Sodium 141 mmol/L (136-145); Total Protein 7.9 g/dL (6.4-8.2); Troponin I < 50 ng/L (<or=60)
[2022-12-11 17:28] LABS: Lipase 44 U/L (16-77)
[2022-12-11 17:46] LABS: ETHANOL BLOOD < 3.0 mg/dL (<10)
[2022-12-11 19:48] LABS: PTT Activated 24.6 sec (21.5-31.9); Prothrombin Time 10.4 sec (9.3-11.0)
[2022-12-11 20:17] LABS: Troponin I < 50 ng/L (<or=60)
[2022-12-11 20:53] LABS: HCT 31.1 % (36.0-46.0); HGB 10.6 g/dL (11.2-15.7)
[2022-12-12] VITALS (50 sets, daily range): BP systolic 98–138; BP diastolic 56–82; PULSE 63–87; RESP 14–31; TEMP 36.8; O2SAT 99
[2022-12-12] MEDS: Normal Saline 1,000 ML 100 ML IV (03:13)
[2022-12-12 07:20] LABS: Abs Immature Grans 0.02 10^3/uL (0.0-0.06); Absolute Basophil Count 0.03 10^3/uL (0.0-0.2); Absolute Eosinophil Count 0.26 10^3/uL (0.0-0.7); Absolute Lymphocyte Count 1.24 10^3/uL (1.2-3.4); Absolute Neutrophil Count 3.86 10^3/uL (1.2-6.7); Basophils % 0.5; Eosinophils % 4.5; HCT 30.6 % (36.0-46.0); HGB 10.2 g/dL (11.2-15.7); Immature Grans % 0.3; Lymphocytes % 21.3; MCH 30.3 pg (27.0-33.0); MCHC 33.3 % (32.0-36.0); MCV 91 fL (80-95); MPV 9.7 fL (8.0-11.0); Monocytes % 6.9; Neutrophils % 66.5; Platelet Count 220 10^3/uL (130-400); RBC 3.37 10^6/uL (3.93-5.22); RDW 12.7 % (11.7-14.6); RDW-SD 42.2 fL; WBC 5.81 10^3/uL (4.4-10.8)
--- NOTE | 2022-12-12 07:51 | W.EDPROG ---
Date of service: 12/12/22 Time of Service: 07:57 Medical Decision Making I received signout on the patient. She has remained stable overnight. She has been accepted at a facility in [place] but we were unable to obtain transport. Her H&H repeated this morning shows only a minor decrease. I have signed her out to Dr. Arnold. Discharge Plan Discharge Details Chief Complaint: GI Bleed Clinical Impression: Elevated LFTs, Acute gastrointestinal bleeding Primary Care Provider: Brook Leon ED Provider: Tracie Leong Home Meds and New Rx's Prescriptions: No Action Fish Oil 100-160-1,000 mg capsule 1 cap PO DAILY betamethasone dipropionate 15 GM ointment 15 g Topical PRN PRN aspirin [Adult Aspirin Regimen] 81 mg tablet,delayed release (DR/EC) 81 mg PO DAILY triamcinolone acetonide 0.5 % cream 1 applic topical BID lisinopril 2.5 MG tablet 5 mg PO DAILY clopidogrel 75 mg Tablet 75 mg PO DAILY Qty: 30 0RF atorvastatin 80 mg tablet 80 mg PO QHS Qty: 30 0RF acetaminophen 500 mg tablet 500 mg PO Q6H PRN (Reason: pain) Qty: 60 2RF ibuprofen 600 mg tablet 600 mg PO TID PRN (Reason: pain) Qty: 60 0RF Assessment & Plan Plan The patient is a 72-year-old female with black stools and likely upper GI bleed. She has been accepted at a facility in [place] but we were unable to arrange for transport. Repeat H&H this morning shows only a slight decrease since the initial CBC 12 hours earlier. I have signed her out to Dr. Arnold the oncoming provider. Discontinued tramadol Discontinued Reason: Pt Stopped/Never Started 50 mg PO Q8H PRN 10 tabs 0RF Plan Detail Total time on date of encounter, ([id number] and non [id number]) (minutes): 15 Time was spent: reviewing prior notes and diagnostics, providing direct patient care and updating the EMR
--- NOTE | 2022-12-12 07:59 | W.EDPROG ---
Date of service: 12/12/22 Time of Service: 07:59 Medical Decision Making I received signout on the patient. She has remained stable overnight. She has been accepted at a facility in [place] but we were unable to obtain transport. Her H&H repeated this morning shows only a minor decrease. I have signed her out to Dr. Arnold. Discharge Plan Discharge Details Chief Complaint: GI Bleed Clinical Impression: Elevated LFTs, Acute gastrointestinal bleeding Primary Care Provider: Brook Leon ED Provider: Tracie Leong Home Meds and New Rx's Prescriptions: No Action Fish Oil 100-160-1,000 mg capsule 1 cap PO DAILY betamethasone dipropionate 15 GM ointment 15 g Topical PRN PRN aspirin [Adult Aspirin Regimen] 81 mg tablet,delayed release (DR/EC) 81 mg PO DAILY triamcinolone acetonide 0.5 % cream 1 applic topical BID lisinopril 2.5 MG tablet 5 mg PO DAILY clopidogrel 75 mg Tablet 75 mg PO DAILY Qty: 30 0RF atorvastatin 80 mg tablet 80 mg PO QHS Qty: 30 0RF acetaminophen 500 mg tablet 500 mg PO Q6H PRN (Reason: pain) Qty: 60 2RF ibuprofen 600 mg tablet 600 mg PO TID PRN (Reason: pain) Qty: 60 0RF
--- NOTE | 2022-12-12 08:02 | ED.PROG_ITS ---
Date of service: 12/12/22 Time of Service: 08:03 Medical Decision Making Patient was signed out to me pending transportation to outlying facility. Patient was stable hemodynamically throughout the night. No tachycardia or hypotension. Repeat hemoglobin this morning demonstrates stabilization with a hemoglobin of 10.2. No significant drops throughout the night. Platelets stable. Patient looks clinically well. No bright red blood bowel movements, no hematemesis. The patient's physical exam demonstrates no abdominal tenderness. She is mentating well, interactive and cheerful. Currently there is no chainstitch hemmer level transportation available for the next 6 to 12 hours, and clinically the patient demonstrates stability at this time. We do have advanced medic level available. I discussed this option with the patient. We discussed risks and benefits of chainstitch hemmer versus advanced medical level, and at this time patient is clearly saying that her priority is to get down to the facility sooner rather than wait an additional 6 to 12 hours after her already prolonged stay of 16 hours. On my current clinical assessment based on physical exam findings, history, and repeat lab values patient does demonstrate medical stability that would be appropriate for transport with an EXECUTIVE VICE PRESIDENT level provider. We will utilize this to facilitate transport. Patient accepts risks and benefits. At time of transfer the patient was reassessed and continued to demonstrate No signs of acute respiratory distress requiring intubation, hemodynamic instability requiring pressor support, or rapidly declining mental status. Sign Out Sign Out Data: Sign Out Comment: I received signout on the patient. She has remained stable overnight. She has been accepted at a facility in [place] but we were unable to obtain transport. Her H&H repeated this morning shows only a minor decrease. I have signed her out to Dr. Arnlod. Last updated by Tracie Leong MD at 12/12/22 08:00 Discharge Plan Disposition Patient Disposition: Transfer-Acute Inpatient Care Specific Acute Inpt Facility: Other Condition: Good Discharge Details Chief Complaint: GI Bleed Clinical Impression: Elevated LFTs, Acute gastrointestinal bleeding Primary Care Provider: Brook Leon ED Provider: Tracie Leong Home Meds and New Rx's Prescriptions: No Action Fish Oil 100-160-1,000 mg capsule 1 cap PO DAILY betamethasone dipropionate 15 GM ointment 15 g Topical PRN PRN aspirin [Adult Aspirin Regimen] 81 mg tablet,delayed release (DR/EC) 81 mg PO DAILY triamcinolone acetonide 0.5 % cream 1 applic topical BID lisinopril 2.5 MG tablet 5 mg PO DAILY clopidogrel 75 mg Tablet 75 mg PO DAILY Qty: 30 0RF atorvastatin 80 mg tablet 80 mg PO QHS Qty: 30 0RF acetaminophen 500 mg tablet 500 mg PO Q6H PRN (Reason: pain) Qty: 60 2RF ibuprofen 600 mg tablet 600 mg PO TID PRN (Reason: pain) Qty: 60 0RF
== END 2022-12-12 09:22 | disposition short-term general hospital (02) ==
PROVIDERS: Emergency Medicine; Emergency Medicine Emergency Medical Services; Emergency Provider Student in an Organized Health Care Education/Training Program; PCP Family Medicine
DX: K92.2 Gastrointestinal hemorrhage, unspecified (principal); R79.89 Other specified abnormal findings of blood chemistry; R00.0 Tachycardia, unspecified; Z79.02 Long term (current) use of antithrombotics/antiplatelets; Z79.84 Long term (current) use of oral hypoglycemic drugs; Z86.73 Personal history of transient ischemic attack (TIA), and cerebral infarction without residual deficits; Z79.899 Other long term (current) drug therapy
CPT/HCPCS: 36415; 80053; 83690; 86850; 86900; 86901; 99285; 80320; 83735; 84484; 85014; 85018; 85025; 85610; 85730; 99284

== ENCOUNTER 2022-12-22 08:46 | Outpatient (CLI) | payer MEDICARE, MEDICAID, SELFPAY ==
--- NOTE | 2022-12-22 09:18 | W.CARDEVENT ---
Date of service: 12/22/22 Time of Service: 09:18 Cardiac Event Recorder Referring Provider:: Alma Chaudhari Indications:: Transient ischemic attack Cardiac Event Note: This is a cardiac event monitor. Patient was monitored for a total period of 9 days Rhythm throughout was sinus. Average heart rate was 78. Minimum was 57, maximum 105 There were no significant ventricular dysrhythmias There was no atrial fibrillation, no high-grade AV block, no pauses greater than 3 seconds, no SVT No patient's symptoms were reported
== END 2022-12-22 08:47 | disposition home or self-care (01) ==
LOC: CARDOPNVT 08:46
PROVIDERS: PCP Family Medicine; Visit Provider Internal Medicine Cardiovascular Disease
DX: G45.9 Transient cerebral ischemic attack, unspecified (principal)
CPT/HCPCS: 93248

== ENCOUNTER → 2023-01-20 09:39 | Outpatient (BNVA) | payer MEDICARE, MEDICAID, SELFPAY | PROVIDERS: PCP Family Medicine; Referring Provider Family Medicine; Visit Provider Psychiatry & Neurology Neurology | DX: I65.21 Occlusion and stenosis of right carotid artery (principal); Z86.73 Personal history of transient ischemic attack (TIA), and cerebral infarction without residual deficits | CPT/HCPCS: 99214 ==

== ENCOUNTER 2023-03-06 17:14 | Outpatient (REF) | payer MEDICARE, MEDICAID, SELFPAY ==
[2023-03-06 17:00] LABS: HCT 39.1 % (36.0-46.0); HGB 12.3 g/dL (11.2-15.7); MCHC 31.5 % (32.0-36.0); MCV 89 fL (80-95); MPV 10.7 fL (8.0-11.0); Platelet Count 224 10^3/uL (130-400); RBC 4.39 10^6/uL (3.93-5.22); RDW 13.4 % (11.7-14.6); RDW-SD 44.2 fL; WBC 6.42 10^3/uL (4.4-10.8)
[2023-03-06 17:29] LABS: Anion Gap 8.6 mmol/L (3-11); BUN 16 mg/dL (7-18); CO2 27.4 mmol/L (21.0-32.0); CREATININE 0.9 mg/dL (0.55-1.02); Calcium 9.6 mg/dL (8.5-10.1); Chloride 104 mmol/L (98-107); Estimated GFR 66.67 (mL/min/1.73m2); Ferritin 140 ng/mL (8-252); Glucose 85 mg/dL (74-106); Potassium 4.1 mmol/L (3.5-5.1); Sodium 140 mmol/L (136-145)
== END 2023-03-06 17:15 | disposition home or self-care (01) ==
LOC: NCHCN 17:14
PROVIDERS: PCP Family Medicine; Visit Provider Family Medicine
DX: N18.31 Chronic kidney disease, stage 3a (principal); I63.9 Cerebral infarction, unspecified; Z87.11 Personal history of peptic ulcer disease; R71.8 Other abnormality of red blood cells
CPT/HCPCS: 80048; 85027; 82728

== ENCOUNTER → 2023-03-12 00:30 | Outpatient (CLI) | payer MEDICARE, MEDICAID, SELFPAY ==
--- NOTE | 2023-03-12 | DI.MAMMO_ITS ---
Exam(s) MAMMO SCREENING EXAM: MAMMO SCREENING CLINICAL HISTORY: SCREENING MAMMO FOR BREAST CANCER Z12.31 TECHNIQUE: Bilateral full field digital CC and MLO mammographic images were obtained with 3D tomosyn thesis and utilizing computer aided detection (CAD). COMPARISON: Available for comparison. FINDINGS: Masses/Architectural Distortion: There is a focus of asymmetric breast tissue in the posterior centra l left breast which appears more prominent compared to the prior examination. Microcalcifications: No suspicious pleomorphic-type are seen. Skin Thickening/Nipple Retraction: None. IMPRESSION: 1. Asymmetric breast tissue in the posterior central left breast on the craniocaudad view. This area should be further evaluated with a spot compression view. 2. Ultrasound may be indicated at that time. BI-RADS Category 0 - Assessment Incomplete: Need additional imaging evaluation Breast Density - Category B - Scattered areas of fibroglandular density Breast density category C or D implies that the patient has dense breast tissue. Dense breast tissue is very common and is not abnormal but dense breast tissue can make it harder to find cancer on a ma mmogram. Also, dense breast tissue may increase their breast cancer risk. This information about the result of the mammogram report was provided to the patient to raise their awareness. Use this report when you speak with the patient about their risks for breast cancer, which includes their family hist ory. At that time, you may recommend for more screening tests (Ultrasound or MRI) as they might be us eful based on their risk. A negative radiographic report should not delay biopsy if a dominant or clinically suspicious mass is present. Up to ten percent of cancers are not identified on mammography. A negative report may reinforce clinical impression. Adenosis and dense breasts may obscure an underlying neoplasm. False positive reports average 6 to 10%. Patient will receive a letter notifying them of these results.
--- NOTE | 2023-03-12 | DI.DEXA_ITS ---
Exam(s) XR DEXA BONE DENSITY W/WO SHELBY EXAM: XR DEXA BONE DENSITY W/WO SHELBY CLINICAL HISTORY: DISORDER BONE DENSITY M85.88 TECHNIQUE: COMPARISON: CR XR DEXA BONE DENSITY W/WO SHELBY from 03/02/2019 FINDINGS: Lateral Spine Image: Unremarkable. No compression deformities identified. Left hip: Total T-Score: 0.0. This compares to 0.1 on the prior examination. Total Z-Score: 1.8 T- and Z-scores: Within normal limits. Lumbar Spine: Total T-Score: 0.1. This compares to -0.3 on the prior examination. Total Z-Score: 2.5 T- and Z-scores: Within normal limits. IMPRESSION: No evidence of osteoporosis.
== END ==
PROVIDERS: PCP Family Medicine; Visit Provider Family Medicine
DX: M85.88 Other specified disorders of bone density and structure, other site (principal); Z12.31 Encounter for screening mammogram for malignant neoplasm of breast; Z13.820 Encounter for screening for osteoporosis
CPT/HCPCS: 77063; 77067; 77080

== ENCOUNTER 2023-03-12 01:26 | Outpatient (CLI) | payer MEDICARE, MEDICAID, SELFPAY ==
[2023-03-12 13:23] LABS: Calculated LDL 83 mg/dL (<100); Cholesterol 169 mg/dL (<200); HDL Cholesterol 74 mg/dL (40-60); Triglyceride 63 mg/dL (<150)
== END 2023-03-12 01:27 | disposition home or self-care (01) ==
LOC: LBO 01:26
PROVIDERS: PCP Family Medicine; Visit Provider Psychiatry & Neurology Neurology
DX: N18.9 Chronic kidney disease, unspecified (principal)
CPT/HCPCS: 36415; 80061

== ENCOUNTER 2023-03-20 01:34 | Outpatient (CLI) | payer MEDICARE, MEDICAID, SELFPAY ==
--- NOTE | 2023-03-20 | DI.US_ITS ---
Exam(s) MG MAMMO SCREEN CALL BACK UNI US BREAST LT COMPLETE EXAM: MG MAMMO SCREEN CALL BACK UNI-LEFT AND COMPLETE LEFT BREAST ULTRASOUND CLINICAL HISTORY: F/U MAMMO, ASYMMETRIC BREAST TISSUE LT BREAST. TECHNIQUE: Unilateral spot mammographic images obtained with 3D tomosynthesisand utilizing computer aided detection (CAD). . Complete left breast Ultrasound was also performed, including all 4 quadrants, the retroareolar regio n, and the ipsilateral axilla. COMPARISON: Prior mammograms were reviewed. This additional imaging was performed due to findings described on the recent screening mammogram of 03/12/2023. FINDINGS: DIAGNOSTIC MAMMOGRAM: Additional mammographic views performed todayrenders this area in the left breast less concerning and similar in appearance to prior mammograms. COMPLETE LEFT BREAST ULTRASOUND: Ultrasound performed today reveals no evidence of solid or significant cystic lesions in all 4 quadra nts. Further evidence that the finding on the mammogram is benign asymmetric tissue. Scanning of the ipsilateral axilla reveals no significant adenopathy. IMPRESSION: 1. No radiographic evidence of malignancy in left breast. 2. Negative complete left breast ultrasound Appropriate follow-up is to give this patient on a yearly mammogram schedule, with earlier imaging i f a self detected breast change is noted.. The patient was informed of these findings and recommendations by myself prior to leaving the departm ent today. BI-RADS Category 2 - Benign Findings Breast Density - Category B - Scattered areas of fibroglandular density Breast density Category C or D implies that the patient has dense breast tissue. Dense breast tissue can make it harder to find cancer on a mammogram. Dense breast tissue is also associated with an incr eased risk of breast cancer. This information about the result of the mammogram report was provided to the patient to raise their awareness. Use this report when you speak with the patient about their risks for breast cancer, which includes their family history. At that time, you may recommend additional screening tests (Ultrasoun d or MRI) as these tests may add significant information. A negative radiographic report should not delay biopsy if a dominant or clinically suspicious mass is present. Up to ten percent of cancers are not identified on mammography. A negative report may reinforce clinical impression. Adenosis and dense breasts may obscure an underlying neoplasm. False positive reports average 6 to 10%. Patient will receive a letter notifying them of these results.
== END 2023-03-20 01:54 ==
LOC: DI 01:36
PROVIDERS: PCP Family Medicine; Visit Provider Family Medicine
DX: Z12.31 Encounter for screening mammogram for malignant neoplasm of breast (principal); R92.8 Other abnormal and inconclusive findings on diagnostic imaging of breast
CPT/HCPCS: 76642; 77063; 77067

== ENCOUNTER → 2023-11-25 01:06 | Outpatient (CLI) | payer MEDICARE, MEDICAID, SELFPAY ==
--- NOTE | 2023-11-25 07:00 | DI.US_ITS ---
Exam(s) US CAROTID EXAM: US CAROTID CLINICAL HISTORY: carotid stenosis,rt,i65.21. TECHNIQUE: Ultrasound carotids performed using grayscale, color-flow, and spectral Doppler imaging. COMPARISON: No exams were available for comparison FINDINGS: RIGHT CAROTID ARTERY: Plaque: Mild calcific plaque distal CCA proximal ICA. Velocity elevation: None. LEFT CAROTID ARTERY: Plaque: Mild calcific plaque distal CCA and proximal internal carotid artery. Velocity elevation: None. VERTEBRAL ARTERIES: Antegrade flow. Measurements: R Bulb: 89.8cm/s PS / 25.9cm/s ED R CCA: 78.8cm/s PS / 26.6cm/s ED R ECA: 128.1cm/s PS / 31.4cm/s ED R ICA Prox: 104.4cm/s PS / 27.7cm/s ED R ICA Mid: 122.7cm/s PS / 29.6cm/s ED R ICA Distal: 80.2cm/s PS /22.1cm/s ED R Vert: 70.7cm/s PS / 25.6cm/s ED R SVR: 1.6 R DVR: 1.1 L Bulb: 76.3cm/s PS / 19.3cm/s ED L CCA: PS / 27.1cm/s ED L ECA: 93.2cm/s PS / 18cm/s ED L ICA Prox: 89.3cm/s PS / 29.7cm/s ED L ICA Mid: 97cm/s PS / 34.9cm/s ED L ICA Distal: 103.5cm/s PS / 40cm/s ED L Vert: 61.4cm/s PS / 13.5cm/s ED L SVR: 1.1 L DVR: 1.5 IMPRESSION: No evidence for hemodynamically significant carotid stenosis. Criteria for Carotid Stenosis: Normal: ICA PSV <125 cm/s no plaque or intimal thickening is visible. <50% stenosis: ICA PSV <125 cm/s and plaque or intimal thickening is visible. 50-69% stenosis: ICA PSV is 125-250 cm/s and plaque is visible. >70% stenosis to near occlusion: ICA PSV >250 cm/s with visible plaque and luminal narrowing. DATA REPOSITORY:
== END ==
PROVIDERS: PCP Family Medicine; Visit Provider Psychiatry & Neurology Neurology
DX: I65.21 Occlusion and stenosis of right carotid artery (principal)
CPT/HCPCS: 93880

== ENCOUNTER → 2024-01-20 10:32 | Outpatient (BNVA) | payer MEDICARE, MEDICAID, SELFPAY | PROVIDERS: PCP Family Medicine; Visit Provider Psychiatry & Neurology Neurology | DX: I65.21 Occlusion and stenosis of right carotid artery (principal); I63.9 Cerebral infarction, unspecified | CPT/HCPCS: 99213 ==

== ENCOUNTER 2024-05-16 19:31 | Outpatient (REF) | payer MEDICARE, MEDICAID, SELFPAY ==
[2024-05-16 20:45] LABS: ALT 37 U/L (14-59); AST 32 U/L (15-37); Albumin 4.2 g/dL (3.4-5.0); Alkaline Phosphatase 82 U/L (46-116); BUN 18 mg/dL (7-18); Bilirubin, Total 0.72 mg/dL (0.2-1.0); Calcium 9.5 mg/dL (8.5-10.1); Calculated LDL 47 mg/dL (<100); Chloride 108 mmol/L (98-107); Cholesterol 151 mg/dL (<200); Estimated GFR 58.39 (mL/min/1.73m2); Glucose 86 mg/dL (74-106); HDL Cholesterol 79 mg/dL (40-60); Potassium 4.2 mmol/L (3.5-5.1); Sodium 144 mmol/L (136-145); Total Protein 7.1 g/dL (6.4-8.2); Triglyceride 125 mg/dL (<150)
== END 2024-05-16 19:32 | disposition home or self-care (01) ==
LOC: NCHCN 19:31
PROVIDERS: PCP Family Medicine; Visit Provider Family Medicine
DX: E78.5 Hyperlipidemia, unspecified (principal); I10 Essential (primary) hypertension
CPT/HCPCS: 80053; 80061

== ENCOUNTER 2024-06-27 15:52 | Outpatient (CLI) | payer MEDICARE, MEDICAID, SELFPAY ==
--- NOTE | 2024-06-27 14:00 | DI.RAD_ITS ---
Exam(s) XR KNEE LT 3V AP,LAT,SCOTT EXAM: XR KNEE LT 3V AP,LAT,SCOTT CLINICAL HISTORY: left TKA. TECHNIQUE: 2D digital imaging was performed. COMPARISON: CR XR KNEE LT 2V AP,LAT from 03/13/2022 FINDINGS: 3 views Again noted is a total knee prosthesis. Components are in satisfactory position alignment with no fr actures nor loosening nor radiographic evidence of osteomyelitis. Appearance is unchanged from image s of 03/13/2022. There is a sclerotic intramedullary density again noted in the distal diaphysis of the femur which is unchanged and most probably related to prior bone infarct versus chondral lesion such as enchondroma . Vascular calcification in the femoral and popliteal artery again noted. IMPRESSION: Stable appearance of the components of the prosthesis when compared to prior images of March 2022. Stable appearance of intramedullary sclerotic bone lesion in the distal diaphysis of the femur. Prob ably bone infarct. Appears unchanged from March 2022. DATA REPOSITORY: RADIATION DOSE DELIVERED:
== END 2024-06-27 15:53 | disposition home or self-care (01) ==
LOC: DIORS 15:52
PROVIDERS: PCP Family Medicine; Referring Provider Family Medicine; Visit Provider Student in an Organized Health Care Education/Training Program
DX: T84.82XA Fibrosis due to internal orthopedic prosthetic devices, implants and grafts, initial encounter; Z96.652 Presence of left artificial knee joint
CPT/HCPCS: 73562; 99213

== ENCOUNTER 2024-07-06 00:24 | Outpatient (CLI) | payer MEDICARE, MEDICAID, SELFPAY ==
--- NOTE | 2024-07-06 06:30 | DI.CT_ITS ---
Exam(s) CT LOWER EXTREMITY LT WO EXAM: CT LOWER EXTREMITY LT WO CLINICAL HISTORY: PAIN, ?LOOSENING ltkr,T84.84xa. TECHNIQUE: Imaging Protocol: Axial computed tomography images with coronal and sagittal reformatted images were created and reviewed. IMAR utilized. CONTRAST MATERIAL: Noncontrast COMPARISON: CR XR KNEE LT 3V AP,LAT,SCOTT from 06/27/2024 FINDINGS: There is artifact around the prosthesis. Bones: There is no evidence of fracture or dislocation. No cellulitic or osteomyelitic changes are identified. No lytic or sclerotic lesions are identified. Joints: A total knee prosthesis is noted. No abnormal surrounding lucencies are visible. Soft Tissues: Vascular calcifications. Venous varicosities in the medial subcutaneous. IMPRESSION: No evidence of loosening the total knee prosthesis. RADIATION DOSE DELIVERED: 129.6mGy.cm Total DLP DATA REPOSITORY: All CT scans at this facility are submitted to the National Radiology Data Registry (NRDR) Dose Index Registry (DIR) with the [employer] (A[employer]). RADIATION OPTIMIZATION: All CT scans at this facility use at least one of these dose optimization te chniques: automated exposure control; mA and/or kV adjustment per patient size (includes targeted exa ms where dose is matched to clinical indication); or iterative reconstruction.
--- NOTE | 2024-07-06 06:30 | DI.NM_ITS ---
Exam(s) NM BONE SCAN 3 PHASE EXAM: NM BONE SCAN 3 PHASE CLINICAL HISTORY: PAIN, ?LOOSENING ltkr,T84.84xa. TECHNIQUE: Injected Dose: 24.5 mCi Tc-99m MDP COMPARISON: CR XR STANDING ALIGNMENT from 03/25/2021 CR XR KNEE LT 2V AP,LAT from 03/13/2022 CR XR KNEE LT 3V AP,LAT,SCOTT from 06/27/[address] LOWER EXTREMITY LT WO from 07/06/2024 FINDINGS: Perfusion: Some hyperemia around the left knee. Blood Pool: Mildly increased activity Delayed: Symmetric diffuse mildly increased activity surrounding both femoral, tibial and patellar co mponents of the prosthesis. Small focal area of increased activity is noted in the medial femoral ti bial joint space, likely reflecting degenerative changes. IMPRESSION: 1. Mildly increased activity around the left knee prosthesis on all 3 phases. No definite evidence o f loosening. DATA REPOSITORY:
[2024-07-06 10:50] LABS: ESR 4 mm/hr (0-30)
[2024-07-06 11:11] LABS: C-Reactive Protein < 0.50 mg/dL (<or=0.5)
== END 2024-07-06 00:44 ==
LOC: DI 00:25
PROVIDERS: PCP Family Medicine; Visit Provider Student in an Organized Health Care Education/Training Program
DX: T84.84XA Pain due to internal orthopedic prosthetic devices, implants and grafts, initial encounter (principal); Z96.652 Presence of left artificial knee joint
CPT/HCPCS: 85652; 73700; 78315; 86140

== ENCOUNTER → 2024-07-11 10:09 | Outpatient (BNVA) | payer MEDICARE, MEDICAID, SELFPAY | PROVIDERS: PCP Family Medicine; Referring Provider Family Medicine; Visit Provider Student in an Organized Health Care Education/Training Program | DX: T84.82XA Fibrosis due to internal orthopedic prosthetic devices, implants and grafts, initial encounter (principal); T84.84XA Pain due to internal orthopedic prosthetic devices, implants and grafts, initial encounter; Z96.652 Presence of left artificial knee joint | CPT/HCPCS: 99215 ==

== ENCOUNTER 2024-10-12 11:56 | Day surgery (SDC) | payer MEDICARE, MEDICAID, SELFPAY ==
[2024-10-12] VITALS (15 sets, daily range): BP systolic 130–179; BP diastolic 64–95; PULSE 62–85; RESP 12–25; TEMP 36–36.7; O2SAT 93–98; BMI 24.4
--- NOTE | 2024-10-12 11:47 | W.PREOPHP ---
Assessment and Plan Assessment and plan (1) Painful total knee replacement, left: Status: Acute (2) Arthrofibrosis of total knee replacement: Assessment and plan: Paula is a 74-year-old female who has a continued pain and stiffness about the left knee. She is here today for arthroscopic synovectomy. Once again I reviewed the tentacle details of the surgery. I discussed the risk to include bleeding, infection, continued pain and stiffness, need for repeat procedures. Despite these risk, she elects to proceed. History of Present Illness History of Present Illness Chief Complaint: Left Knee Pain and Stiffness Narrative: Paula is a 74-year-old female who is status post left knee replacement. Unfortunate she has struggled with stiffness and swelling and pain about the left knee. She has had improvement with previous arthroscopic synovectomy. She has had a negative infectious workup and a relatively negative workup for malpositioning or loosening. However, she continues have some symptoms about the left knee. She is not interested in any open procedure but does want proceed with repeat arthroscopic synovectomy given the relief that is provide in the past. She denies any new sick contacts patient has any new issues medically. No chest pain or shortness of breath. Review of Systems All systems reviewed & are unremarkable except as noted in HPI and below PFSH All Active Problems Painful total knee replacement, left (Acute) Bilateral sensorineural hearing loss (Acute) Tinnitus of right ear (Acute) Sensation of fullness in right ear (Acute) Excessive cerumen in both ear canals (Acute) Dysphagia (Acute) Dysarthria (Acute) Occlusion of left vertebral artery (Acute) Carotid stenosis, right (Acute) Ischemic stroke (Acute) Daily consumption of alcohol (Chronic) Hypokalemia (Acute) TIA (transient ischemic attack) (Acute) Chronic kidney disease (Chronic) Screening for colon cancer (Acute) Neoplasm of unspecified behavior of bone, soft tissue, and skin (Acute) Tendinitis of long head of biceps brachii of right shoulder (Acute) Medical History Hyperplastic colon polyp (~08/25/22) Actinic keratoses Osteoarthritis Knee pain, left Arm pain, right Pain, joint, shoulder, right Hair loss Hypertension Hx of adenomatous colonic polyps Hand eczema Objective pulsatile tinnitus Varicose veins of left lower extremity Bilateral carotid bruits Hyperlipidemia Menopause Family hx of colon cancer Facial twitching Surgical History Arthrofibrosis of total knee replacement LEFT S/P arthroscopy and HAFSA: 02/05/2022 History of total left knee replacement (03/12/21) DOS 03/12/21 History of colonoscopy with polypectomy (~08/25/22) Hx of cataract extraction Colonoscopy - MAC (08/10/17) Family History Mother Colon cancer Social History Smoking/Tobacco Use Status: Never Smoking risk assessment performed?: Yes Alcohol Intake: former Drug use: Never Substance use type: does not use Housing: house Do you feel safe at home: Yes Do you feel safe in your relationship?: Yes Meds Allergies and Home Medications Allergies Allergy/AdvReac Type Severity Reaction Status Date / Time No Known Allergies Allergy Verified 10/12/24 12:17 Home Medications ?Medication ?Instructions ?Recorded ?Confirmed ?Type lisinopril 2.5 mg tablet 5 mg PO DAILY 02/22/14 10/12/24 History betamethasone dipropionate 0.05 % 15 g topical PRN PRN 07/20/17 10/12/24 History topical ointment omega 0-bgw-qzs-fish oil 100 1 cap PO DAILY 03/13/22 10/12/24 History mg-160 mg-1,000 mg capsule (Fish Oil) triamcinolone acetonide 0.5 % 1 applic topical BID 04/01/22 10/12/24 History topical cream atorvastatin 80 mg tablet 80 mg PO QHS #30 tabs 11/19/22 10/12/24 Rx clopidogrel 75 mg tablet 75 mg PO DAILY #90 tabs 01/20/23 10/11/24 Rx Exam Resp Effort & Inspection: normal respiratory effort Auscultation: clear to auscultation bilaterally Cardio Rate: regular rate Rhythm: regular rhythm
--- NOTE | 2024-10-12 12:22 | W.ANESPRE ---
General Info Date of Service Date Performed: 10/12/24 Height: 5 ft 3.5 in Weight: 63.503 kg Body Mass Index (BMI): 24.4 Surgical Procedure: Operation Date: 10/12/24 14:40 Proposed Procedure Side Surgeon p Knee Arthroscopic synovectomy Left Angel Joshua MD Meds Allergies and Home Medications Allergies Allergy/AdvReac Type Severity Reaction Status Date / Time No Known Allergies Allergy Verified 10/12/24 12:17 Home Medication ?Medication ?Instructions ?Recorded lisinopril 2.5 mg tablet 5 mg PO DAILY 02/22/14 betamethasone dipropionate 0.05 % 15 g topical PRN PRN 07/20/17 topical ointment omega 9-sii-ywv-fish oil 100 1 cap PO DAILY 03/13/22 mg-160 mg-1,000 mg capsule (Fish Oil) triamcinolone acetonide 0.5 % 1 applic topical BID 04/01/22 topical cream atorvastatin 80 mg tablet 80 mg PO QHS #30 tabs 11/19/22 clopidogrel 75 mg tablet 75 mg PO DAILY #90 tabs 01/20/23 Current Visit Medications: Current Medications Generic Name Dose Route Start Last Admin Trade Name Freq PRN Reason Stop Dose Admin Acetaminophen 1,000 mg 10/12/24 06:00 Acetaminophen 500 Mg Tab PO 10/12/24 23:59 PREOP TEDDY Celecoxib 400 mg 10/12/24 06:00 Celecoxib 200 Mg Cap PO 10/12/24 23:59 PREOP TEDDY Ringer's Solution 1,000 mls @ 80 mls/hr 10/12/24 06:00 IV 10/12/24 23:59 INFUSION TEDDY Cefazolin Sodium/Dextrose 2 gm in 50 mls @ 100 mls/hr 10/12/24 06:00 Ancef Duplex IVPB 10/12/24 23:59 PREOP TEDDY Tranexamic Acid/Sodium Chloride 1,000 mg in 100 mls @ 600 mls/hr 10/12/24 06:00 IVPB 10/12/24 23:59 PREOP TEDDY IV Miscellaneous Supplies 1 each 10/12/24 06:00 Iv Access IV 10/12/24 23:59 DIRECTED TEDDY Sodium Chloride 0 ml 10/12/24 06:00 Normal Saline Flush 10 Ml Syr IV 10/12/24 23:59 PRN PRN Sodium Chloride 0 ml 10/12/24 06:00 Normal Saline 10 Ml Vial IJ 10/12/24 23:59 DIRECTED PRN Sterile Water 0 ml 10/12/24 06:00 Water,Injection,Sterile 10 Ml Vial IJ 10/12/24 23:59 DIRECTED PRN PFSH Active Problems Active Problems: Problem Status Onset Code Painful total knee replacement, left Acute T84.84XA, Z96.652 Bilateral sensorineural hearing loss Acute H90.3 Tinnitus of right ear Acute H93.11 Sensation of fullness in right ear Acute H93.8X1 Excessive cerumen in both ear canals Acute H61.23 Dysphagia Acute R13.10 Dysarthria Acute R47.1 Occlusion of left vertebral artery Acute I65.02 Carotid stenosis, right Acute I65.21 Ischemic stroke Acute I63.9 Daily consumption of alcohol Chronic Z78.9 Hypokalemia Acute E87.6 TIA (transient ischemic attack) Acute G45.9 Chronic kidney disease Chronic N18.9 Screening for colon cancer Acute Z12.11 Neoplasm of unspecified behavior of bone, soft tissue, and skin Acute D49.2 Tendinitis of long head of biceps brachii of right shoulder Acute M75.21 Medical History Medical History Hyperplastic colon polyp (~08/25/22) Actinic keratoses Osteoarthritis Knee pain, left Arm pain, right Pain, joint, shoulder, right Hair loss Hypertension Hx of adenomatous colonic polyps Hand eczema Objective pulsatile tinnitus Varicose veins of left lower extremity Bilateral carotid bruits Hyperlipidemia Menopause Family hx of colon cancer Facial twitching Surgical History Surgical History Arthrofibrosis of total knee replacement LEFT S/P arthroscopy and HAFSA: 02/05/2022 History of total left knee replacement (03/12/21) DOS 03/12/21 History of colonoscopy with polypectomy (~08/25/22) Hx of cataract extraction Colonoscopy - MAC (08/10/17) Tobacco Smoking/Tobacco Use Status: Never Alcohol Alcohol Intake: former Substance Use Substance use: Never Substance use type: does not use Vital Signs and Lab Results Lab Results Blood Type / Crossmatch: No Data to Display Complete Blood Count: No Data to Display Complete Metabolic Panel: No Data to Display Liver Function Panel: No Data to Display Coagulation Panel: No Data to Display Cardiac Panel: No Data to Display Arterial Blood Gas: No Data to Display Venous Blood Gas: No Data to Display Pancreas Panel: No Data to Display Thyroid Panel: No Data to Display Infectious Disease: No Data to Display Blood Cultures: No Data to Display Toxicology Panel: No Data to Display Imaging and Studies Imaging and Studies Study information below may be from another EMR and interpreted by another provider. Please see original notes in EMR for more complete details. EKG Summary: 11/16/22: Exam: Resting ECG Reason for Exam: [facility] Patient Location: E HR:96 bpm ECG Measurements Heart Rate 96 AXIS VT 202 P 14 QRSd 99 QRS -10 QT 356 T44 QTc 451 Conclusion Sinus rhythm...normal P axis, V-rate 60- 99 Left ventricular hypertrophy...multiple voltage criteria Inferior infarct, old...Q >35mS, II III aVF Anterior infarct, old...Q >40mS, abnormal ST-T, V2-V5 Echocardiogram Summary: 11/17/22: Conclusion Normal left ventricular wall thickness and chamber size. Ejection fraction is 55-60 %. Wall motion is normal Normal right ventricular size and systolic function Left atrium is mildly dilated. Right atrium is mildly dilated Aortic valve is sclerotic without stenosis or regurgitation Mitral annular calcification, trace mitral regurgitation Normal tricuspid valve with trace regurgitation. Estimated right ventricular systolic pressure is 24 mmHg Elevated ascending aorta measuring 4.01 cm Carotid Artery Summary:: 11/25/23: IMPRESSION: No evidence for hemodynamically significant carotid stenosis. Criteria for Carotid Stenosis: Normal: ICA PSV <125 cm/s no plaque or intimal thickening is visible. <50% stenosis: ICA PSV <125 cm/s and plaque or intimal thickening is visible. 50-69% stenosis: ICA PSV is 125-250 cm/s and plaque is visible. >70% stenosis to near occlusion: ICA PSV >250 cm/s with visible plaque and luminal narrowing. Anesthesia Assessment and Plan Anesthesia History Personal History: No History of Anesthesia Complications Family History: No Family History of Anesthesia Complications Exercise Tolerance Exercise Tolerance: Metabolic Equivalents>4 Pertinent Negatives Pertinent Negatives: No Symptoms of GERD, No Major Cardiovascular Symptoms or Complaints and No Major Pulmonary Symptoms or Complaints Cardiac & Pulmonary Exam Cardiac Exam: Normal S1/S2 Heart Sounds Pulmonary Exam: Clear Bilateral Breath Sounds Implantable Cardiac Device Does patient have a Pacemaker or an ICD?: No Airway Exam Known Difficult Airway: No Mallampati Class: 3 Mouth Opening: Normal (> 3cm) Thyromental Distance: Less than 3 cm Neck Range of Motion: Full ROM Neck Circumference: Normal Teeth Condition: Normal Dentition and Removable Dentures/Plates Upper ASA Classification ASA Score: ASA 3 Emergency Case?: No NPO Status NPO Status: NPO Clears >2 hours, Solids >8 hours Anesthesia Plan Resuscitation Status: Full Code Anesthesia Technique: General Anesthesia Airway Planned: LMA Monitors Used: Standard Monitors and SedLine
[2024-10-12] MEDS: Celecoxib 200 MG CAP 400 MG PO (12:24)
[2024-10-12] MEDS: Acetaminophen 500 MG TAB 1000 MG PO (12:24)
[2024-10-12] MEDS: Lactated Ringers 1,000 ML 80 ML IV (12:39)
[2024-10-12] MEDS: ceFAZolin 2 GM/50 ML BAG IVPB (13:20)
--- NOTE | 2024-10-12 13:26 | ROE_ITS ---
Operative Note Operative Note PRE-OP DIAGNOSIS: Arthrofibrosis of Knee Replacement - LEFT POST-OP DIAGNOSIS: same PROCEDURE: Arthroscopic Synovectomy of 3 Compartments with Manipulation - LEFT Knee SURGEON: Angel Joshua ANESTHESIA TYPE: General LMA/ETT Refer to Anesthesia Record ESTIMATED BLOOD LOSS: 0 PATHOLOGY: none sent COMPLICATIONS: None Patient was transported to: PACU Patient's condition: stable Indications: I have seen Paula in clinic for symptoms of painful arthrofibrosis of the knee following knee replacement surgery. Nonoperative measures were exhausted but disability due to pain and lack of motion persisted. I discussed knee arthroscopy with synovectomy with maniuplation with the patient. I reviewed the risks of the procedure to include, but not limited to, bleeding, infection, pain, continued stiffness, recurrence, blood clot. Despite these risks, the patient elected to proceed. Findings: There is dense, thickened, frayed inflammatory tissue throughout the knee mostly involving the superior lateral and lateral aspect of the knee. A 3 compartment synovectomy was performed. Preoperative Range of Motion: Flexion: 90 Extension:0 Postoperative Range of Motion: Flexion:125 Extension:0 Procedure Description: Paula was greeted in the preoperative holding area where the correct side was identified and marked. The consent was reviewed with the patient and signed. The history and physical was updated. All questions were answered. She was taken back to the operating room. The patient was placed into the supine position on the operating room table. All bony prominences were well padded. Prophylactic antibiotics in the form of Cefazolin were administered. Preoperative range of motion was assessed as 0 - 90. The left leg was then prepped with Chloraprep and draped in a standard fashion with stockinette and extremity drape. A timeout to confirm correct identity, side and site, procedure, allergies, anesthesia, and medical concerns was performed. The leg was placed into a pneumatic leg macdonald, SPIDER2. A standard lateral portal was made at the lateral border of the patella tendon in line with the inferior pole of the patella, soft spot. The skin and deep tissue was incised sharply and the blunt trochar was inserted atraumatically. At this point had visualization of the femoral component. There was notable dense, frayed, inflammatory tissue throughout the knee, mostly over the lateral superolateral aspect. A superolateral portal was then established with spinal needle localization just superior and lateral to the patella. A knife was taken down through the skin and soft tissue to enter the knee joint. Starting in the superior compartment above the femoral component and anterior to the femur I released all scarring between the anterior femoral synovium and the overlying extensor mechanism. This was taken through all of any noticeable scar tissue until the superior patellar pouch was fully released and mobile. There is dense tissue seen laterally adjacent the patella and this was debrided with electrocautery and with a shaver. Once this was released fully from lateral to medial superiorly I then continue working down the lateral gutter where once again there was dense, thickened, frayed tissue. All scar tissue in the lateral gutter was released so there is normal space and movement between the capsular tissues and the edge of the femoral component and femur. This was taken down t hrough the lateral gutter such that I was able to identify the polyethylene to its posterior corner. Once again, all scar tissue in this area was resected so the polyethylene was easily visible and there is no interposed tissue in the back or the polyethylene was identified. I think continue to work anteriorly. To continue the synovectomy from the lateral compartment to the anterior compartment into the medial compartment, I placed a medial portal under spinal needle localization. Once this was in place it became another working portal and I continued the synovectomy through the anterior compartment to the medial compartment. Once again, I freed up the medial gutter so I was able to visualize the polyethylene from the anterior posterior margins. There is no interposed tissue after full synovectomy was performed. Adhesions between the capsule and the femur were released. This was continued up the medial gutter until it met up with the releases performed previously in the superior compartment. Any remnant scar tissue from around the patella was then removed with a shaver and electrocautery. There was some mild bony overgrowth seen laterally and I resected this with a shaver. The arthroscope was brought back into the suprapatellar pouch and the leg was in full extension. The knee was thoroughly irrigated with the arthroscopic fluid on high flow and pressure. Inflow was stopped and excess fluid was removed. The leg was removed from the spider leg macdonald and manipulation was performed. I first push the knee into flexion and was able to obtain 125 degrees. The w ounds were closed with 4-0 Nylon. 0.25% bupivacaine was injected around the portal sites and into the knee. The wounds were dressed with Xeroform, 4x4 gauze, ABD pad, Kerlix and an TOLU wrap. A cryo-cuff was applied. The patient tolerated the procedure well and was returned to the Same Day Surgery area in a stable condition suffering no known complication.. Date of Procedure: 10/12/24
[2024-10-12] MEDS: TRANEXAMIC ACID/SOD. CHL. 1,000 MG/100 ML BAG 600 MG IVPB (13:40)
--- NOTE | 2024-10-12 13:52 | PDOC.DSDIS_ITS ---
Date of service: 10/12/24 Discharge Plan Disposition Patient Disposition: Home Condition: Good Discharge Details Reason For Visit: L knee arthroscopy Attending Provider: Angel Joshua Primary Care Provider: Brook Leon Home Meds and New Rx's Prescriptions: New acetaminophen 500 mg tablet 500 mg PO TID Qty: 90 0RF hydrocodone-acetaminophen 5-325 mg tablet 1 tab PO Q6H PRN (Reason: pain) Qty: 6 0RF ibuprofen 600 mg tablet 600 mg PO TID PRN (Reason: pain) Qty: 90 0RF Continued Fish Oil 100-160-1,000 mg capsule 1 cap PO DAILY clopidogrel 75 mg tablet 75 mg PO DAILY Qty: 90 3RF betamethasone dipropionate 15 GM ointment 15 g Topical PRN PRN triamcinolone acetonide 0.5 % cream 1 applic topical BID lisinopril 2.5 MG tablet 5 mg PO DAILY atorvastatin 80 mg tablet 80 mg PO QHS Qty: 30 0RF Discharge Instructions Additional Instructions: Knee Manipulation Discharge Instructions Activity: You should begin moving as soon as possible. You may work on flexion but also equally maintain extension. You may bear weight as tolerated, using crutches only for support/comfort. You should apply ice to help with swelling and elevate when possible (especially in the first few days). Dressings: The knee dressing may come down after 48 hours. You may shower and get the wound wet at that time. You should keep the wounds covered with a bandaid until follow-up. Medications: - Rarely does this require any stronger pain medications. - Recommend to take up to 1000mg of Acetaminophen (Tylenol) and 600mg of Ibuprofen (Advil) every 8 hours as needed. These larger strength tablets were called in but you also may use [id number]. Follow-up: 7-10 days Stand Alone Forms: Anesthesia Discharge Inst., Viktoria Thomas ([facility]) Referrals: Angel Joshua MD [ [facility] STAFF PHYSICIAN] - 10/27/24 10:00 am Equipment/Supplies: Partial Weight Bearing Crutches Activity:: Activity as Tolerated Remove Dressings/Wound Care:: 48 hours Shower/Bathe:: 48 hours Diet:: As Tolerated Discharge Orders Discharge Orders: Discharge Order (Routine); Ordered 10/12/24 Ordered By: Will Uday DS: Diagnosis Discharge Diagnosis (1) Painful total knee replacement, left: Status: Acute (2) Arthrofibrosis of total knee replacement:
--- NOTE | 2024-10-12 15:24 | W.ANESPOSTOP ---
Postoperative Evaluation Date, Time and Location Date Performed: 10/12/24 Time Performed: 15:24 Patient Location: Day Surgery Unit Vital Signs Most Recent Imported Vital Signs: Most Recent Vital Signs Temp Pulse Resp BP Pulse Ox 36.3 C L 71 16 140/72 98 10/12/24 15:20 10/12/24 14:51 10/12/24 14:51 10/12/24 14:51 10/12/24 14:51 Pain Score Most Recent Pain Score: Most Recent Pain Score Pain Level 4 10/12/24 15:20 Assessment Mental Status: Awake (Alert & Oriented to Patient Baseline) Airway and Respiratory Function: Patent airway with normal (patient baseline) respiratory exam Cardiovascular Function: Hemodynamically Stable Hydration Status: Adequately Hydrated Nausea & Vomiting: No Nausea or Vomiting Pain: Pain is tolerable per patient Peripheral Nerve Block: Patient did not receive a nerve block
== END 2024-10-12 16:48 | disposition home or self-care (01) ==
PROVIDERS: PCP Family Medicine; Visit Provider Student in an Organized Health Care Education/Training Program
PROC: (CPT 29870; principal; 2024-10-12 14:30)
DX: T84.84XA Pain due to internal orthopedic prosthetic devices, implants and grafts, initial encounter (principal); T84.82XA Fibrosis due to internal orthopedic prosthetic devices, implants and grafts, initial encounter; Z96.652 Presence of left artificial knee joint; Z79.899 Other long term (current) drug therapy; Z86.73 Personal history of transient ischemic attack (TIA), and cerebral infarction without residual deficits; F10.90 Alcohol use, unspecified, uncomplicated; H90.3 Sensorineural hearing loss, bilateral; N18.9 Chronic kidney disease, unspecified; E87.6 Hypokalemia; I12.9 Hypertensive chronic kidney disease with stage 1 through stage 4 chronic kidney disease, or unspecified chronic kidney disease; E78.5 Hyperlipidemia, unspecified
CPT/HCPCS: 29876; J0330; J0665; J0690; J1100; J2003; J2405; J2704; J3010

== ENCOUNTER → 2024-10-27 09:53 | Outpatient (BNVA) | payer MEDICARE, MEDICAID, SELFPAY | PROVIDERS: PCP Family Medicine; Referring Provider Family Medicine; Visit Provider Physician Assistant | DX: T84.82XD Fibrosis due to internal orthopedic prosthetic devices, implants and grafts, subsequent encounter (principal) | CPT/HCPCS: 99024 ==

== ENCOUNTER → 2025-01-24 10:32 | Outpatient (BNVA) | payer MEDICARE, MEDICAID, SELFPAY | PROVIDERS: PCP Family Medicine; Visit Provider Psychiatry & Neurology Neurology | DX: I65.21 Occlusion and stenosis of right carotid artery (principal); I63.9 Cerebral infarction, unspecified; I12.9 Hypertensive chronic kidney disease with stage 1 through stage 4 chronic kidney disease, or unspecified chronic kidney disease; N18.9 Chronic kidney disease, unspecified | CPT/HCPCS: 99213 ==

== ENCOUNTER 2025-02-07 11:31 | Outpatient (CLI) | payer MEDICARE, MEDICAID, SELFPAY ==
--- NOTE | 2025-02-07 07:00 | DI.US_ITS ---
Exam(s) US CAROTID EXAM: US CAROTID CLINICAL HISTORY: R carotid and L vert stenosis,occlusion lt vertebral artery,i65.02. TECHNIQUE: Ultrasound carotids performed using grayscale, color-flow, and spectral Doppler imaging. COMPARISON: No exams were available for comparison FINDINGS: RIGHT CAROTID ARTERY: Plaque: Mild calcific plaque at the common carotid bulb and proximal internal carotid artery. Velocity elevation: None. LEFT CAROTID ARTERY: Plaque: Mild calcific plaque at the common carotid bulb and proximal internal carotid artery. Velocity elevation: None. VERTEBRAL ARTERIES: Antegrade flow. IMPRESSION: Mild calcific proc at the common carotid bulbs and proximal internal carotid arteries. No evidence for hemodynamically significant carotid stenosis. Criteria for Carotid Stenosis: Normal: ICA PSV <125 cm/s no plaque or intimal thickening is visible. <50% stenosis: ICA PSV <125 cm/s and plaque or intimal thickening is visible. 50-69% stenosis: ICA PSV is 125-250 cm/s and plaque is visible. >70% stenosis to near occlusion: ICA PSV >250 cm/s with visible plaque and luminal narrowing. DATA REPOSITORY:
== END 2025-02-07 11:51 ==
LOC: DI 11:32
PROVIDERS: PCP Family Medicine; Visit Provider Psychiatry & Neurology Neurology
DX: I65.02 Occlusion and stenosis of left vertebral artery (principal); I65.21 Occlusion and stenosis of right carotid artery
CPT/HCPCS: 93880

== ENCOUNTER → 2025-04-14 03:07 | Outpatient (CLI) | payer MEDICARE, SELFPAY ==
--- NOTE | 2025-04-14 15:45 | DI.MAMMO_ITS ---
Exam(s) MAMMO SCREENING EXAM: MAMMO SCREENING CLINICAL HISTORY: SCREENING MAMMO Z12.31. TECHNIQUE: Bilateral full field digital CC and MLO mammographic images were obtained with 3D tomosynthesis and utilizing computer aided detection (CAD). COMPARISON: Prior mammograms were reviewed. FINDINGS: There has been no significant change in the appearance and distribution of the fibroglandular tissue. There are no new spiculated masses nor malignant appearing microcalcification groups. There is no significant architectural distortion nor skin thickening-retraction. IMPRESSION: No radiographic evidence of malignancy. BI-RADS Category 1 - Negative Breast Density - Category B - There are scattered areas of fibroglandular density. Breast density Category C or D implies that the patient has dense breast tissue. Dense breast tissue can make it harder to find cancer on a mammogram. Dense breast tissue is also associated with an increased risk of breast cancer. This information about the result of the mammogram report was provided to the patient to raise their awareness. Use this report when you speak with the patient about their risks for breast cancer, which includes their family history. At that time, you may recommend additional screening tests (Ultrasound or MRI) as these tests may add significant information. A negative radiographic report should not delay biopsy if a dominant or clinically suspicious mass is present. Up to ten percent of cancers are not identified on mammography. A negative report may reinforce clinical impression. Adenosis and dense breasts may obscure an underlying neoplasm. False positive reports average 6 to 10%. Patient will receive a letter notifying them of these results.
== END ==
LOC: DI 03:07
PROVIDERS: PCP Family Medicine; Visit Provider Family Medicine
DX: Z12.31 Encounter for screening mammogram for malignant neoplasm of breast (principal); R92.323 Mammographic fibroglandular density, bilateral breasts
CPT/HCPCS: 77063; 77067